=== PATIENT | female | born 1995 | race Caucasian/White ===

== ENCOUNTER 2018-01-24 10:21 | Emergency (ER) | payer OTHER ==
[2018-01-24] MEDS ORDERED: Sodium Chloride 0.9% 10 ML Syringe FLUSH PRN (10:25)
[2018-01-24] MEDS ORDERED: Sodium Chloride 0.9% 2.5 ML Syringe FLUSH PRN (10:25)
--- NOTE | 2018-01-24 10:25 | EDM.PDOC ---
ED HPI GENERAL MEDICAL PROBLEM - General Chief Complaint: Neurological Problem Stated Complaint: SEIZURE AT WORK Time Seen by Provider: 01/24/18 10:23 Source of Information: Reports: Patient History Limitations: Reports: No Limitations - History of Present Illness INITIAL COMMENTS - FREE TEXT/NARRATIVE: HISTORY AND PHYSICAL: []22-year-old female presenting per EMS after having a seizure at work History of Present Illness: []Patient opens eyes follows commands, postictal She states history of seizures SHe does not take any medications,(1 year) as this seemed to be making her seizures heavier and more frequent She states her last seizure was 8-9 months ago Review of Systems: As per history of present illness and below otherwise all systems reviewed and negative. Past medical history: As per history of present illness and as reviewed below otherwise noncontributory. Surgical history: As per history of present illness and as reviewed below otherwise noncontributory. Social history: No reported history of drug or alcohol abuse. Family history: As per history of present illness and as reviewed below otherwise noncontributory. Physical exam: Alert and oriented answering questions appropriately. HEENT: Atraumatic, normocehpalic, pupils reactive, negative for conjunctival pallor or scleral icterus, mucous membranes moist, throat clear, neck supple, nontender, trachea midline. Lungs: Clear to auscultation, breath sounds equal bilaterally, chest non tender. Heart: S1S2, regular, negative for clicks, rubs, or JVD. Abdomen: Soft, nondistended, nontender. Negative for masses or hepatossplenmegaly. Negative for costovertebral tenderness. Pelvis: Stable nontender. Genitourinary: Deferred. Rectal: Deferred Extremities: Atraumatic, negative for cords or calf pain. Neurovascular unremarkable. Neuro: Awake, alert, oriented. Cranial nerves II through XII unremarkable. Cerebellum unremarkable. Motor and sensory unremarkable throughout. Exam nonfocal. Diagnostics: []CBC CMP prolactin UA urine drug screen hCG Therapeutics: [] Impression: []Seizure activity resolved Plan: []Discharged home Rest for today Note given for work Follow-up with Dr. Mesa, [facility] - Neurology Professional Building [address] [place] [address], [address] [place] [address] Definitive disposition and diagnosis as appropriate pending reevaluation and review of above. Onset: Today, Sudden Duration: Improving Location: Reports: Generalized Quality: Reports: Same as Previous Episode Severity: Moderate Improves with: Reports: None Worsens with: Reports: None Associated Symptoms: Reports: No Other Symptoms - Related Data Allergies Allergy/AdvReac Type Severity Reaction Status Date / Time No Known Allergies Allergy Verified 01/24/18 10:29 Home Meds: Home Meds . [No Known Home Meds] 01/24/18 [History] ED ROS GENERAL - Review of Systems Review Of Systems: ROS reveals no pertinent complaints other than HPI. (The dictation) ED EXAM, NEURO - Physical Exam Exam: See Below Course - Vital Signs Last Recorded V/S: Last Vital Signs Temp 37.2 C 01/24/18 10:26 Pulse 60 01/24/18 10:26 Resp 16 01/24/18 10:26 BP 114/73 01/24/18 10:26 Pulse Ox 99 01/24/18 10:26 - Orders/Labs/Meds Orders: Active Orders 24 hr Category Date Time Status EKG Documentation Completion [RC] STAT Care 01/24/18 10:25 Active Sodium Chloride 0.9% [Saline Flush] Med 01/24/18 10:25 Active 10 ml FLUSH ASDIRECTED PRN Sodium Chloride 0.9% [Saline Flush] Med 01/24/18 10:25 Active 2.5 ml FLUSH ASDIRECTED PRN Saline Lock Insert [OM.PC] Stat Oth 01/24/18 10:25 Ordered Medication Orders Sodium Chloride (Saline Flush) 10 ml FLUSH ASDIRECTED PRN PRN Reason: Keep Vein Open Sodium Chloride (Saline Flush) 2.5 ml FLUSH ASDIRECTED PRN PRN Reason: Keep Vein Open Labs: Laboratory Tests 01/24/18 01/24/18 01/24/18 Range/Units 10:57 10:57 11:10 WBC 7.66 (4.0-11.0) K/uL RBC 4.33 (4.30-5.90) M/uL Hgb 13.1 (12.0-16.0) g/dL Hct 38.9 (36.0-46.0) % MCV 89.8 (80.0-98.0) fL MCH 30.3 (27.0-32.0) pg MCHC 33.7 (31.0-37.0) g/dL RDW Std Deviation 42.7 (28.0-62.0) fl RDW Coeff of Sudheer 13 (11.0-15.0) % Plt Count 306 (150-400) K/uL MPV 10.20 (7.40-12.00) fL Neut % (Auto) 69.0 (48.0-80.0) % Lymph % (Auto) 24.7 (16.0-40.0) % [place] % (Auto) 5.7 (0.0-15.0) % Eos % (Auto) 0.5 (0.0-7.0) % Baso % (Auto) 0.1 (0.0-1.5) % Neut # (Auto) 5.3 (1.4-5.7) K/uL Lymph # (Auto) 1.9 (0.6-2.4) K/uL [place] # (Auto) 0.4 (0.0-0.8) K/uL Eos # (Auto) 0.0 (0.0-0.7) K/uL Baso # (Auto) 0.0 (0.0-0.1) K/uL Nucleated RBC % 0.0 /100WBC Nucleated RBCs # 0 K/uL Sodium 138 (136-145) mmol/L Potassium 4.7 (3.5-5.1) mmol/L Chloride 103 (98-107) mmol/L Carbon Dioxide 27.3 (21.0-32.0) mmol/L BUN 14 (7.0-18.0) mg/dL Creatinine 0.6 (0.6-1.0) mg/dL Est Cr Clr Drug Dosing 103.85 mL/min Estimated GFR (MDRD) > 60.0 ml/min Glucose 117 H (74-106) mg/dL Calcium 9.5 (8.5-10.1) mg/dL Total Bilirubin 0.3 (0.2-1.0) mg/dL AST 18 (15-37) IU/L ALT 44 (14-63) IU/L Alkaline Phosphatase 61 (46-116) U/L Troponin I < 0.050 (0.000-0.056) ng/mL Total Protein 7.8 (6.4-8.2) g/dL Albumin 4.2 (3.4-5.0) g/dL Globulin 3.6 H (2.0-3.5) g/dL Albumin/Globulin Ratio 1.2 L (1.3-2.8) Prolactin 7 (0-27) ng/mL Urine Color YELLOW Urine Appearance CLEAR Urine pH 6.5 (5.0-8.0) Ur Specific [place] 1.020 (1.001-1.035) Urine Protein NEGATIVE (NEGATIVE) mg/dL Urine Glucose (UA) NEGATIVE (NEGATIVE) mg/dL Urine Ketones NEGATIVE (NEGATIVE) mg/dL Urine Occult Blood TRACE-LYSED (NEGATIVE) Urine Nitrite NEGATIVE (NEGATIVE) Urine Bilirubin NEGATIVE (NEGATIVE) Urine Urobilinogen 0.2 (<2.0) EU/dL Ur Leukocyte Esterase TRACE (NEGATIVE) Urine RBC 0-1 (0-2/HPF) Urine WBC 0-1 (0-5/HPF) Ur Epithelial Cells RARE (NONE-FEW) Urine Bacteria RARE (NEGATIVE) Urine HCG, Qual (NEGATIVE) Urine Opiates Screen (NEGATIVE) Ur Oxycodone Screen (NEGATIVE) Urine Methadone Screen (NEGATIVE) Ur Barbiturates Screen (NEGATIVE) Ur Phencyclidine Scrn (NEGATIVE) Ur Amphetamine Screen (NEGATIVE) U Methamphetamines Scrn (NEGATIVE) U Benzodiazepines Scrn (NEGATIVE) U Cocaine Metab Screen (NEGATIVE) U Marijuana (THC) Screen (NEGATIVE) 01/24/18 01/24/18 Range/Units 11:10 11:10 WBC (4.0-11.0) K/uL RBC (4.30-5.90) M/uL Hgb (12.0-16.0) g/dL Hct (36.0-46.0) % MCV (80.0-98.0) fL MCH (27.0-32.0) pg MCHC (31.0-37.0) g/dL RDW Std Deviation (28.0-62.0) fl RDW Coeff of Sudheer (11.0-15.0) % Plt Count (150-400) K/uL MPV (7.40-12.00) fL Neut % (Auto) (48.0-80.0) % Lymph % (Auto) (16.0-40.0) % [place] % (Auto) (0.0-15.0) % Eos % (Auto) (0.0-7.0) % Baso % (Auto) (0.0-1.5) % Neut # (Auto) (1.4-5.7) K/uL Lymph # (Auto) (0.6-2.4) K/uL [place] # (Auto) (0.0-0.8) K/uL Eos # (Auto) (0.0-0.7) K/uL Baso # (Auto) (0.0-0.1) K/uL Nucleated RBC % /100WBC Nucleated RBCs # K/uL Sodium (136-145) mmol/L Potassium (3.5-5.1) mmol/L Chloride (98-107) mmol/L Carbon Dioxide (21.0-32.0) mmol/L BUN (7.0-18.0) mg/dL Creatinine (0.6-1.0) mg/dL Est Cr Clr Drug Dosing mL/min Estimated GFR (MDRD) ml/min Glucose (74-106) mg/dL Calcium (8.5-10.1) mg/dL Total Bilirubin (0.2-1.0) mg/dL AST (15-37) IU/L ALT (14-63) IU/L Alkaline Phosphatase (46-116) U/L Troponin I (0.000-0.056) ng/mL Total Protein (6.4-8.2) g/dL Albumin (3.4-5.0) g/dL Globulin (2.0-3.5) g/dL Albumin/Globulin Ratio (1.3-2.8) Prolactin (0-27) ng/mL Urine Color Urine Appearance Urine pH (5.0-8.0) Ur Specific [place] (1.001-1.035) Urine Protein (NEGATIVE) mg/dL Urine Glucose (UA) (NEGATIVE) mg/dL Urine Ketones (NEGATIVE) mg/dL Urine Occult Blood (NEGATIVE) Urine Nitrite (NEGATIVE) Urine Bilirubin (NEGATIVE) Urine Urobilinogen (<2.0) EU/dL Ur Leukocyte Esterase (NEGATIVE) Urine RBC (0-2/HPF) Urine WBC (0-5/HPF) Ur Epithelial Cells (NONE-FEW) Urine Bacteria (NEGATIVE) Urine HCG, Qual NEGATIVE (NEGATIVE) Urine Opiates Screen NEGATIVE (NEGATIVE) Ur Oxycodone Screen NEGATIVE (NEGATIVE) Urine Methadone Screen NEGATIVE (NEGATIVE) Ur Barbiturates Screen NEGATIVE (NEGATIVE) Ur Phencyclidine Scrn NEGATIVE (NEGATIVE) Ur Amphetamine Screen NEGATIVE (NEGATIVE) U Methamphetamines Scrn NEGATIVE (NEGATIVE) U Benzodiazepines Scrn NEGATIVE (NEGATIVE) U Cocaine Metab Screen NEGATIVE (NEGATIVE) U Marijuana (THC) Screen NEGATIVE (NEGATIVE) Meds: Medications Generic Name Dose Route Start Last Admin Trade Name Freq PRN Reason Stop Dose Admin Sodium Chloride 10 ml 01/24/18 10:25 Saline Flush FLUSH ASDIRECTED PRN Keep Vein Open Sodium Chloride 2.5 ml 01/24/18 10:25 Saline Flush FLUSH ASDIRECTED PRN Keep Vein Open Departure - Departure Time of Disposition: 12:11 Disposition: Home, Self-Care 01 Condition: Good Clinical Impression: Postictal headache - Discharge Information *PRESCRIPTION DRUG MONITORING PROGRAM REVIEWED*: Not Applicable *COPY OF PRESCRIPTION DRUG MONITORING REPORT IN PATIENT REY: Not Applicable Instructions: Seizure, Adult, [id number] Referrals: PCP,None [Primary Care Provider] - Mone Mesa MD [Physician] - Forms: ED Department Discharge Additional Instructions: The following information is given to patients seen in the emergency department who are being discharged to home. This information is to outline your options for follow-up care. We provide all patients seen in our emergency department with a follow-up referral. The need for follow-up, as well as the timing and circumstances, are variable depending upon the specifics of your emergency department visit. If you don't have a primary care physician on staff, we will provide you with a referral. We always advise you to contact your personal physician following an emergency department visit to inform them of the circumstance of the visit and for follow-up with them and/or the need for any referrals to a consulting specialist. The emergency department will also refer you to a specialist when appropriate. This referral assures that you have the opportunity for followup care with a specialist. All of these measure are taken in an effort to provide you with optimal care, which includes your followup. Under all circumstances we always encourage you to contact your private physician who remains a resource for coordinating your care. When calling for followup care, please make the office aware that this follow-up is from your recent emergency room visit. If for any reason you are refused follow-up, please contact the [facility] emergency department at and asked to speak to the emergency department charge nurse. Referral has been made for you to see Dr. Mone Mesa: Neurologist [facility] - Neurology Professional [address], [address] [place] [address] Note has been given for work to stay home and rest today Return to the emergency department as directed and discussed - My Orders Last 24 Hours: My Active Orders 01/24/18 10:25 EKG Documentation Completion [RC] STAT Sodium Chloride 0.9% [Saline Flush] 10 ml FLUSH ASDIRECTED PRN Sodium Chloride 0.9% [Saline Flush] 2.5 ml FLUSH ASDIRECTED PRN Saline Lock Insert [OM.PC] Stat - Assessment/Plan Last 24 Hours: My Active Orders 01/24/18 10:25 EKG Documentation Completion [RC] STAT Sodium Chloride 0.9% [Saline Flush] 10 ml FLUSH ASDIRECTED PRN Sodium Chloride 0.9% [Saline Flush] 2.5 ml FLUSH ASDIRECTED PRN Saline Lock Insert [OM.PC] Stat
[2018-01-24 11:45] LABS: CHLORIDE,CL 103 mmol/L (98-107); SODIUM,NA 138 mmol/L (136-145)
== END 2018-01-24 12:28 | disposition home or self-care (01) ==
LOC: MW.ED 10:21
DX: R51 Headache (principal); R56.9 Unspecified convulsions
CPT/HCPCS: 36415; 80053; 80305-QW; 81001; 81025; 84146; 84484; 85025; 93005; 99283; 99285-25

== ENCOUNTER 2018-02-03 11:02 | Emergency (ER) | payer OTHER ==
--- NOTE | 2018-02-03 11:25 | EDM.PDOC ---
ED HPI GENERAL MEDICAL PROBLEM - General Chief Complaint: Neuro Symptoms/Deficits Time Seen by Provider: 02/03/18 11:10 Source of Information: Reports: Patient History Limitations: Reports: No Limitations - History of Present Illness INITIAL COMMENTS - FREE TEXT/NARRATIVE: HISTORY AND PHYSICAL: History of present illness: 22-year-old female presented emergency department by EMS after witnessed seizure while working at [employer] with past medical history of seizure disorder. As per EMS patient did have witnessed seizure and on their arrival she was postictal. She is now currently alert and oriented 3. States that today around 7 AM she was having some right ear pain and knew that she was about to have a seizure. As per EMS and observers she had a "grand mal" tonic-clonic seizure lasting 2-3 minutes. It was relieved on its own. Patient does admit to having a seizure Monday of last week. States that her last seizure before this was 8 months ago. She does have a history of seizures and states that she was on some medications which sounds like, oxcarbamazepine. She states that she felt like this caused her to have more seizures so was using marijuana and states that the marijuana helped completely resolve her seizures. She currently is taking no medications. She does admit to using marijuana otherwise she's been feeling healthy other than her right ear pain secondary to some recent nasal congestion. She denies any focal neurologic deficits at this time. She is originally from [place] and has not established a primary care provider or neurologist here in [place]. Currently denies any chest pain, palpitations, or shortness of breath. Review of systems: As per history of present illness and below otherwise all systems reviewed and negative. Past medical history: As per history of present illness and as reviewed below otherwise noncontributory. Surgical history: As per history of present illness and as reviewed below otherwise noncontributory. Social history: No reported history of drug or alcohol abuse. Family history: As per history of present illness and as reviewed below otherwise noncontributory. Physical exam: HEENT: Atraumatic, normocephalic, pupils reactive, negative for conjunctival pallor or scleral icterus, mucous membranes moist, throat clear, neck supple, nontender, trachea midline. Lungs: Clear to auscultation, breath sounds equal bilaterally, chest nontender. Heart: S1S2, regular, negative for clicks, rubs, or JVD. Abdomen: Soft, nondistended, nontender. Negative for masses or hepatosplenomegaly. Negative for costovertebral tenderness. Pelvis: Stable nontender. Genitourinary: Deferred. Rectal: Deferred. Extremities: Atraumatic, negative for cords or calf pain. Neurovascular unremarkable. Neuro: Awake, alert, oriented. Cranial nerves II through XII unremarkable. Cerebellum unremarkable. Motor and sensory unremarkable throughout. Exam nonfocal. Diagnostics: CBC, CMP, mag, UA/UC, urine drug screen, EKG, CT head Therapeutics: Keppra 1000 mg IV 1, Keppra 500 mg by mouth twice a day 30 days prescription Impression: Generalized tonic-clonic seizure Plan: CBC CMP, mag, UA, EKG, CT head were all unremarkable. Urine drug screen was positive for marijuana which she had already admitted to. I did load patient with 1000 milligrams of IV Keppra before discharge. We also set her up to see primary care provider as well as neurology. I gave her prescription for Keppra 500 mg by mouth twice a day and instructed to return to emergency department if she had any new or worsening symptoms. Definitive disposition and diagnosis as appropriate pending reevaluation and review of above. - Related Data Allergies Allergy/AdvReac Type Severity Reaction Status Date / Time No Known Allergies Allergy Verified 02/03/18 11:09 Home Meds: Home Meds . [No Known Home Meds] 01/24/18 [History] Past Medical History Neurological History: Reports: Seizure Social & Family History - Family History Family Medical History: Noncontributory ED ROS GENERAL - Review of Systems Review Of Systems: ROS reveals no pertinent complaints other than HPI. ED EXAM, GENERAL - Physical Exam Exam: See Below Course - Vital Signs Last Recorded V/S: Last Vital Signs Temp 97.7 F 02/03/18 11:06 Pulse 81 02/03/18 11:06 Resp 16 02/03/18 11:06 BP 110/51 L 02/03/18 11:06 Pulse Ox 99 02/03/18 11:22 - Orders/Labs/Meds Orders: Active Orders 24 hr Category Date Time Status EKG 12 Lead [EKG Documentation Completion] [RC] STAT Care 02/03/18 11:26 Active Head wo Cont [CT] Stat Exams 02/03/18 11:27 Taken CULTURE URINE [RM] Stat Lab 02/03/18 12:42 Received levETIRAcetam [Keppra] 1,000 mg Med 02/03/18 13:21 Ordered Dextrose 5% in Water 100 ml IV NOW Medication Orders Levetiracetam 1,000 mg/ (Dextrose/Water) 110 mls @ 440 mls/hr IV NOW STA Stop: 02/03/18 13:35 Labs: Laboratory Tests 02/03/18 02/03/18 02/03/18 Range/Units 11:37 11:37 11:37 WBC 8.01 (4.0-11.0) K/uL RBC 4.32 (4.30-5.90) M/uL Hgb 13.3 (12.0-16.0) g/dL Hct 39.2 (36.0-46.0) % MCV 90.7 (80.0-98.0) fL MCH 30.8 (27.0-32.0) pg MCHC 33.9 (31.0-37.0) g/dL RDW Std Deviation 42.8 (28.0-62.0) fl RDW Coeff of Sudheer 13 (11.0-15.0) % Plt Count 336 (150-400) K/uL MPV 9.90 (7.40-12.00) fL Neut % (Auto) 66.4 (48.0-80.0) % Lymph % (Auto) 25.6 (16.0-40.0) % [place] % (Auto) 7.0 (0.0-15.0) % Eos % (Auto) 0.9 (0.0-7.0) % Baso % (Auto) 0.1 (0.0-1.5) % Neut # (Auto) 5.3 (1.4-5.7) K/uL Lymph # (Auto) 2.1 (0.6-2.4) K/uL [place] # (Auto) 0.6 (0.0-0.8) K/uL Eos # (Auto) 0.1 (0.0-0.7) K/uL Baso # (Auto) 0.0 (0.0-0.1) K/uL Nucleated RBC % 0.0 /100WBC Nucleated RBCs # 0 K/uL Sodium 139 (136-145) mmol/L Potassium 4.0 (3.5-5.1) mmol/L Chloride 103 (98-107) mmol/L Carbon Dioxide 30.1 (21.0-32.0) mmol/L BUN 12 (7.0-18.0) mg/dL Creatinine 0.6 (0.6-1.0) mg/dL Est Cr Clr Drug Dosing 124.85 mL/min Estimated GFR (MDRD) > 60.0 ml/min Glucose 120 H (74-106) mg/dL Calcium 9.1 (8.5-10.1) mg/dL Magnesium 1.8 (1.8-2.4) mg/dL Total Bilirubin 0.3 (0.2-1.0) mg/dL AST 19 (15-37) IU/L ALT 45 (14-63) IU/L Alkaline Phosphatase 67 (46-116) U/L Total Protein 7.7 (6.4-8.2) g/dL Albumin 4.1 (3.4-5.0) g/dL Globulin 3.6 H (2.0-3.5) g/dL Albumin/Globulin Ratio 1.1 L (1.3-2.8) Prolactin 12 (0-27) ng/mL HCG, Qual NEGATIVE (NEG) Urine Color Urine Appearance Urine pH (5.0-8.0) Ur Specific [place] (1.001-1.035) Urine Protein (NEGATIVE) mg/dL Urine Glucose (UA) (NEGATIVE) mg/dL Urine Ketones (NEGATIVE) mg/dL Urine Occult Blood (NEGATIVE) Urine Nitrite (NEGATIVE) Urine Bilirubin (NEGATIVE) Urine Urobilinogen (<2.0) EU/dL Ur Leukocyte Esterase (NEGATIVE) Urine RBC (0-2/HPF) Urine WBC (0-5/HPF) Ur Epithelial Cells (NONE-FEW) Urine Bacteria (NEGATIVE) Urine Opiates Screen (NEGATIVE) Ur Oxycodone Screen (NEGATIVE) Urine Methadone Screen (NEGATIVE) Ur Barbiturates Screen (NEGATIVE) Ur Phencyclidine Scrn (NEGATIVE) Ur Amphetamine Screen (NEGATIVE) U Methamphetamines Scrn (NEGATIVE) U Benzodiazepines Scrn (NEGATIVE) U Cocaine Metab Screen (NEGATIVE) U Marijuana (THC) Screen (NEGATIVE) 02/03/18 02/03/18 Range/Units 12:42 12:42 WBC (4.0-11.0) K/uL RBC (4.30-5.90) M/uL Hgb (12.0-16.0) g/dL Hct (36.0-46.0) % MCV (80.0-98.0) fL MCH (27.0-32.0) pg MCHC (31.0-37.0) g/dL RDW Std Deviation (28.0-62.0) fl RDW Coeff of Sudheer (11.0-15.0) % Plt Count (150-400) K/uL MPV (7.40-12.00) fL Neut % (Auto) (48.0-80.0) % Lymph % (Auto) (16.0-40.0) % [place] % (Auto) (0.0-15.0) % Eos % (Auto) (0.0-7.0) % Baso % (Auto) (0.0-1.5) % Neut # (Auto) (1.4-5.7) K/uL Lymph # (Auto) (0.6-2.4) K/uL [place] # (Auto) (0.0-0.8) K/uL Eos # (Auto) (0.0-0.7) K/uL Baso # (Auto) (0.0-0.1) K/uL Nucleated RBC % /100WBC Nucleated RBCs # K/uL Sodium (136-145) mmol/L Potassium (3.5-5.1) mmol/L Chloride (98-107) mmol/L Carbon Dioxide (21.0-32.0) mmol/L BUN (7.0-18.0) mg/dL Creatinine (0.6-1.0) mg/dL Est Cr Clr Drug Dosing mL/min Estimated GFR (MDRD) ml/min Glucose (74-106) mg/dL Calcium (8.5-10.1) mg/dL Magnesium (1.8-2.4) mg/dL Total Bilirubin (0.2-1.0) mg/dL AST (15-37) IU/L ALT (14-63) IU/L Alkaline Phosphatase (46-116) U/L Total Protein (6.4-8.2) g/dL Albumin (3.4-5.0) g/dL Globulin (2.0-3.5) g/dL Albumin/Globulin Ratio (1.3-2.8) Prolactin (0-27) ng/mL HCG, Qual (NEG) Urine Color YELLOW Urine Appearance CLEAR Urine pH 6.0 (5.0-8.0) Ur Specific [place] >= 1.030 (1.001-1.035) Urine Protein NEGATIVE (NEGATIVE) mg/dL Urine Glucose (UA) NEGATIVE (NEGATIVE) mg/dL Urine Ketones NEGATIVE (NEGATIVE) mg/dL Urine Occult Blood TRACE-INTACT (NEGATIVE) Urine Nitrite NEGATIVE (NEGATIVE) Urine Bilirubin NEGATIVE (NEGATIVE) Urine Urobilinogen 0.2 (<2.0) EU/dL Ur Leukocyte Esterase NEGATIVE (NEGATIVE) Urine RBC 2-3 (0-2/HPF) Urine WBC 0-1 (0-5/HPF) Ur Epithelial Cells FEW (NONE-FEW) Urine Bacteria FEW (NEGATIVE) Urine Opiates Screen NEGATIVE (NEGATIVE) Ur Oxycodone Screen NEGATIVE (NEGATIVE) Urine Methadone Screen NEGATIVE (NEGATIVE) Ur Barbiturates Screen NEGATIVE (NEGATIVE) Ur Phencyclidine Scrn NEGATIVE (NEGATIVE) Ur Amphetamine Screen NEGATIVE (NEGATIVE) U Methamphetamines Scrn NEGATIVE (NEGATIVE) U Benzodiazepines Scrn NEGATIVE (NEGATIVE) U Cocaine Metab Screen NEGATIVE (NEGATIVE) U Marijuana (THC) Screen POSITIVE (NEGATIVE) Meds: Medications Generic Name Dose Route Start Last Admin Trade Name Freq PRN Reason Stop Dose Admin Levetiracetam 1,000 mg/ 110 mls @ 440 mls/hr 02/03/18 13:21 Dextrose/Water IV 02/03/18 13:35 NOW STA Departure - Departure Time of Disposition: 13:25 Disposition: Home, Self-Care 01 Condition: Good Clinical Impression: Tonic-clonic seizure disorder, Seizure - Discharge Information Referrals: PCP,None [Primary Care Provider] - Forms: ED Department Discharge Additional Instructions: My general discharge The following information is given to patients seen in the emergency department who are being discharged to home. This information is to outline your options for follow-up care. We provide all patients seen in our emergency department with a follow-up referral. The need for follow-up, as well as the timing and circumstances, are variable depending upon the specifics of your emergency department visit. If you don't have a primary care physician on staff, we will provide you with a referral. We always advise you to contact your personal physician following an emergency department visit to inform them of the circumstance of the visit and for follow-up with them and/or the need for any referrals to a consulting specialist. The emergency department will also refer you to a specialist when appropriate. This referral assures that you have the opportunity for follow-up care with a specialist. All of these measure are taken in an effort to provide you with optimal care, which includes your follow-up. Under all circumstances we always encourage you to contact your private physician who remains a resource for coordinating your care. When calling for follow-up care, please make the office aware that this follow-up is from your recent emergency room visit. If for any reason you are refused follow-up, please contact the [facility] Emergency Department at and asked to speak to the emergency department charge nurse. [facility] [address] [place] [id number] [facility] Specialty Care - Neurology Professional Building [address] [place] [address], [address] [place] [address] Please call above numbers to set up appointment with primary care provider as well as neurology on Monday. Be sure to tell them that you were seen in the emergency department for seizures and they wish for you to be seen as soon as possible. Take medication as prescribed. Return emergency department if any new or worsening symptoms. - My Orders Last 24 Hours: My Active Orders 02/03/18 11:26 EKG 12 Lead [EKG Documentation Completion] [RC] STAT 02/03/18 11:27 Head wo Cont [CT] Stat 02/03/18 12:42 CULTURE URINE [RM] Stat 02/03/18 13:21 levETIRAcetam [Keppra] 1,000 mg Dextrose 5% in Water 100 ml IV NOW - Assessment/Plan Last 24 Hours: My Active Orders 02/03/18 11:26 EKG 12 Lead [EKG Documentation Completion] [RC] STAT 02/03/18 11:27 Head wo Cont [CT] Stat 02/03/18 12:42 CULTURE URINE [RM] Stat 02/03/18 13:21 levETIRAcetam [Keppra] 1,000 mg Dextrose 5% in Water 100 ml IV NOW
[2018-02-03 12:05] LABS: CHLORIDE,CL 103 mmol/L (98-107); SODIUM,NA 139 mmol/L (136-145)
--- NOTE | 2018-02-05 14:13 | CT ---
EXAM DATE: 02/03/18 PATIENT'S AGE: 22 Patient: JHON ANDINO Facility: [place], [place] Site . Site : 1995 Study: CT Head [id number] 12:19:32 PM Ordering Physician: Doctor Najera Final Report: I clinical Indication: Seizure. Pain. TECHNIQUE: Axial noncontrast CT cuts performed from the skull base to the vertex. FINDINGS: There is no intracranial mass, hemorrhage infarction or contusion. There is no midline shift or transtentorial herniation. The calvarium is intact. The visualized paranasal sinuses and orbits appear normal. IMPRESSION: Negative study. Please note that all CT scans at this facility use dose modulation, iterative reconstruction, and/or weight-based dosing when appropriate to reduce radiation dose to as low as reasonably achievable. Dictated by Harish Nye MD @ Feb 03 2018 1:09PM (Electronic Signature) Report Signed by Proxy. MIRIAM
== END 2018-02-03 14:06 | disposition home or self-care (01) ==
LOC: MW.ED 11:02
DX: G40.409 Other generalized epilepsy and epileptic syndromes, not intractable, without status epilepticus (principal)
CPT/HCPCS: 36415; 70450; 80053; 80305; 81001; 83735; 84146; 84703; 85025; 87086; 93005; 96365; 99284; J1953; J7060

== ENCOUNTER 2018-05-30 11:52 | Emergency (ER) | payer SELFPAY ==
[2018-05-30] MEDS ORDERED: Sodium Chloride 0.9% 1,000 ML IV ONE (12:05)
[2018-05-30] MEDS ORDERED: Ketorolac 30 MG/ML SDV IVPUSH ONE (12:05)
[2018-05-30] MEDS ORDERED: Ondansetron 4 MG/2 ML SDV IVPUSH ONE (12:06)
--- NOTE | 2018-05-30 12:16 | EDM.PDOC ---
ED HPI GENERAL MEDICAL PROBLEM - General Chief Complaint: Neuro Symptoms/Deficits Stated Complaint: SEIZURE Time Seen by Provider: 05/30/18 11:55 Source of Information: Reports: Patient, EMS History Limitations: Reports: No Limitations - History of Present Illness INITIAL COMMENTS - FREE TEXT/NARRATIVE: HISTORY AND PHYSICAL: History of present illness: Patient is a 22-year-old female who presents to the emergency room via EMS after a seizure. She states she woke up this morning with some right upper quadrant pain around 0600. She states she had one episode of vomiting due to the right upper quadrant pain. Describes this as a "pressure". This afternoon she states she could feel a seizure "coming on", so she had a called a friend to come pick her up to bring her to the ED. She sat and waited in her vehicle for the friend to arrive. While waiting, she had a seizure for approximately 5 minutes (per patient report). The vehicle was not running (or in motion). The friend arrived and called the EMS for transport. Patient did not fall, hit her head or have any urinary/fecal incontinence. Patient has a known seizure disorder and usually smokes marijuana daily for treatment of her seizures. Reports that oral medications caused her to have more seizures, so was informed to start smoking marijuana for seizure management. Prior to her marijuana use, she would have 3 seizures per week. Now she only has "maybe one seizure every 3 months". She states she moved here from [place] about 8 months ago, and has not set up care with a primary care provider or neurologist. Last time she saw a neurologist or primary care provider was approximately 3 years ago. Patient states she is concerned that she had been diagnosed with "stage II cervical cancer" and previously had "it frozen off", but didn't have any follow up and is fearful that this abdominal pain may be related. Denies any fever, chills, chest pain, shortness of breath or cough. Denies any nausea, diarrhea, constipation or dysuria. Denies any chance of . Denies any vaginal bleeding or discharge. Review of systems: As per history of present illness and below otherwise all systems reviewed and negative. Past medical history: As per history of present illness and as reviewed below otherwise noncontributory. Surgical history: As per history of present illness and as reviewed below otherwise noncontributory. Social history: See social history for further information Family history: As per history of present illness and as reviewed below otherwise noncontributory. Physical exam: General: Well-developed and well-nourished 22-year-old female. Alert and oriented. Nontoxic appearing and in no acute distress. HEENT: Atraumatic, normocephalic, pupils equal and reactive bilaterally, negative for conjunctival pallor or scleral icterus, mucous membranes moist, throat clear, neck supple, nontender, trachea midline. No drooling or trismus noted. No meningeal signs Lungs: Clear to auscultation, breath sounds equal bilaterally, chest nontender. Heart: S1S2, regular rate and rhythm without overt murmur Abdomen: Soft, nondistended, nontender. Negative for masses or hepatosplenomegaly. Negative for costovertebral tenderness. Pelvis: Stable nontender. Genitourinary: Deferred. Rectal: Deferred. Skin: Intact, warm, dry. No lesions or rashes noted. Extremities: Atraumatic, negative for cords or calf pain. Neurovascular unremarkable. Neuro: Awake, alert, oriented. Cranial nerves II through XII unremarkable. Cerebellum unremarkable. Motor and sensory unremarkable throughout. Exam nonfocal. Notes: Lab work is unremarkable. No acute findings on the chest x-ray or CT of abdomen and pelvis. Patient's vital signs are stable and within normal limits. I strongly encouraged the patient to establish care with a primary care provider ( overall health maintenance), OBGYN (history of cervical cancer) and neurologist (known seizure disorder). She states she recently got insurance and will make appropriate follow up appointments. Supportive care measures were reviewed and discussed. She voices understanding and is agreeable to plan of care. Denies any further questions or concerns at this time. Diagnostics: CBC, CMP, UA, HCGU, CXR, Amylase, Lipase, abd/pelv CT Therapeutics: IV fluids, Zofran, Toradol Prescription: None Impression: Known Seizure Disorder Abdominal Pain Plan: 1. Please establish care with a Neurologist and OBGYN for your pre-existing health problems. Contact information has been provided to you on your discharge instruction sheet. 2. Tylenol and/or Ibuprofen for pain management. 3. See a primary care provider in the next 1-2 days. Return to the ED as needed and as discussed. Definitive disposition and diagnosis as appropriate pending reevaluation and review of above. Onset: Today Location: Reports: Abdomen RUQ Pain Score (Numeric/FACES): 10 - Related Data Allergies Allergy/AdvReac Type Severity Reaction Status Date / Time No Known Allergies Allergy Verified 05/30/18 11:57 Home Meds: Home Meds . [No Known Home Meds] 01/24/18 [History] Past Medical History Neurological History: Reports: Seizure Other Neuro History: states hasn't had a seizure in 3 months, not taking any oral medications for seizures, states she smokes marijuana to contol seizures Oncologic (Cancer) History: Reports: Cervix Other Oncologic History: stage 2 cervical ca Social & Family History - Family History Family Medical History: Noncontributory Endocrine/Metabolic: Reports: Diabetes, Type I Oncologic: Reports: Other (See Below) Other Oncologic Family History: Cancer - Tobacco Use Smoking Status *Q: Current Some Day Smoker Years of Tobacco use: 6 Packs/Tins Daily: 0 - Caffeine Use Caffeine Use: Reports: None - Recreational Drug Use Recreational Drug Use: Yes Drug Use in Last 12 Months: Yes Recreational Drug Type: Reports: Marijuana/Hashish Recreational Drug Use Frequency: Monthly ED ROS GENERAL - Review of Systems Review Of Systems: ROS reveals no pertinent complaints other than HPI. ED EXAM, NEURO - Physical Exam Exam: See Below (See dictation) Course - Vital Signs Last Recorded V/S: Last Vital Signs Temp 98.0 F 05/30/18 11:54 Pulse 78 05/30/18 11:54 Resp 18 05/30/18 11:54 BP 113/76 05/30/18 11:54 Pulse Ox 97 05/30/18 11:54 - Orders/Labs/Meds Orders: Active Orders 24 hr Category Date Time Status CULTURE URINE [RM] Stat Lab 05/30/18 12:59 Received Labs: Laboratory Tests 05/30/18 05/30/18 05/30/18 Range/Units 12:17 12:17 12:59 WBC 8.71 (4.0-11.0) K/uL RBC 4.53 (4.30-5.90) M/uL Hgb 13.9 (12.0-16.0) g/dL Hct 41.4 (36.0-46.0) % MCV 91.4 (80.0-98.0) fL MCH 30.7 (27.0-32.0) pg MCHC 33.6 (31.0-37.0) g/dL RDW Std Deviation 44.1 (28.0-62.0) fl RDW Coeff of Sudheer 13 (11.0-15.0) % Plt Count 293 (150-400) K/uL MPV 10.30 (7.40-12.00) fL Neut % (Auto) 68.2 (48.0-80.0) % Lymph % (Auto) 24.1 (16.0-40.0) % Maries % (Auto) 7.3 (0.0-15.0) % Eos % (Auto) 0.3 (0.0-7.0) % Baso % (Auto) 0.1 (0.0-1.5) % Neut # (Auto) 5.9 H (1.4-5.7) K/uL Lymph # (Auto) 2.1 (0.6-2.4) K/uL Maries # (Auto) 0.6 (0.0-0.8) K/uL Eos # (Auto) 0.0 (0.0-0.7) K/uL Baso # (Auto) 0.0 (0.0-0.1) K/uL Nucleated RBC % 0.0 /100WBC Nucleated RBCs # 0 K/uL Sodium 140 (136-145) mmol/L Potassium 4.6 (3.5-5.1) mmol/L Chloride 104 (98-107) mmol/L Carbon Dioxide 28.5 (21.0-32.0) mmol/L BUN 11 (7.0-18.0) mg/dL Creatinine 0.6 (0.6-1.0) mg/dL Est Cr Clr Drug Dosing 103.85 mL/min Estimated GFR (MDRD) > 60.0 ml/min Glucose 94 (74-106) mg/dL Calcium 9.3 (8.5-10.1) mg/dL Total Bilirubin 0.4 (0.2-1.0) mg/dL AST 11 L (15-37) IU/L ALT 22 (14-63) IU/L Alkaline Phosphatase 57 (46-116) U/L Total Protein 7.7 (6.4-8.2) g/dL Albumin 3.9 (3.4-5.0) g/dL Globulin 3.8 (2.6-4.0) g/dL Albumin/Globulin Ratio 1.0 (0.9-1.6) Amylase 58 (25-115) U/L Lipase 87 (73-393) U/L Urine Color YELLOW Urine Appearance CLEAR Urine pH 7.0 (5.0-8.0) Ur Specific [place] 1.010 (1.001-1.035) Urine Protein NEGATIVE (NEGATIVE) mg/dL Urine Glucose (UA) NEGATIVE (NEGATIVE) mg/dL Urine Ketones NEGATIVE (NEGATIVE) mg/dL Urine Occult Blood TRACE-LYSED H (NEGATIVE) Urine Nitrite NEGATIVE (NEGATIVE) Urine Bilirubin NEGATIVE (NEGATIVE) Urine Urobilinogen 0.2 (<2.0) EU/dL Ur Leukocyte Esterase TRACE H (NEGATIVE) Urine RBC 0-1 (0-2/HPF) Urine WBC 1-3 (0-5/HPF) Ur Epithelial Cells MODERATE (NONE-FEW) Urine Bacteria FEW (NEGATIVE) Urine Mucus LIGHT (NONE-MOD) Urine HCG, Qual (NEGATIVE) 05/30/18 Range/Units 12:59 WBC (4.0-11.0) K/uL RBC (4.30-5.90) M/uL Hgb (12.0-16.0) g/dL Hct (36.0-46.0) % MCV (80.0-98.0) fL MCH (27.0-32.0) pg MCHC (31.0-37.0) g/dL RDW Std Deviation (28.0-62.0) fl RDW Coeff of Sudheer (11.0-15.0) % Plt Count (150-400) K/uL MPV (7.40-12.00) fL Neut % (Auto) (48.0-80.0) % Lymph % (Auto) (16.0-40.0) % Maries % (Auto) (0.0-15.0) % Eos % (Auto) (0.0-7.0) % Baso % (Auto) (0.0-1.5) % Neut # (Auto) (1.4-5.7) K/uL Lymph # (Auto) (0.6-2.4) K/uL Maries # (Auto) (0.0-0.8) K/uL Eos # (Auto) (0.0-0.7) K/uL Baso # (Auto) (0.0-0.1) K/uL Nucleated RBC % /100WBC Nucleated RBCs # K/uL Sodium (136-145) mmol/L Potassium (3.5-5.1) mmol/L Chloride (98-107) mmol/L Carbon Dioxide (21.0-32.0) mmol/L BUN (7.0-18.0) mg/dL Creatinine (0.6-1.0) mg/dL Est Cr Clr Drug Dosing mL/min Estimated GFR (MDRD) ml/min Glucose (74-106) mg/dL Calcium (8.5-10.1) mg/dL Total Bilirubin (0.2-1.0) mg/dL AST (15-37) IU/L ALT (14-63) IU/L Alkaline Phosphatase (46-116) U/L Total Protein (6.4-8.2) g/dL Albumin (3.4-5.0) g/dL Globulin (2.6-4.0) g/dL Albumin/Globulin Ratio (0.9-1.6) Amylase (25-115) U/L Lipase (73-393) U/L Urine Color Urine Appearance Urine pH (5.0-8.0) Ur Specific Mill[place] (1.001-1.035) Urine Protein (NEGATIVE) mg/dL Urine Glucose (UA) (NEGATIVE) mg/dL Urine Ketones (NEGATIVE) mg/dL Urine Occult Blood (NEGATIVE) Urine Nitrite (NEGATIVE) Urine Bilirubin (NEGATIVE) Urine Urobilinogen (<2.0) EU/dL Ur Leukocyte Esterase (NEGATIVE) Urine RBC (0-2/HPF) Urine WBC (0-5/HPF) Ur Epithelial Cells (NONE-FEW) Urine Bacteria (NEGATIVE) Urine Mucus (NONE-MOD) Urine HCG, Qual NEGATIVE (NEGATIVE) Meds: Medications Discontinued Medications Generic Name Dose Route Start Last Admin Trade Name Freq PRN Reason Stop Dose Admin Sodium Chloride 1,000 mls @ 999 mls/hr 05/30/18 12:05 05/30/18 12:32 Normal Saline IV 05/30/18 13:05 999 mls/hr STAT ONE Administration Iopamidol 67 ml 05/30/18 13:42 05/30/18 13:44 Isovue Multipack-370 (76%) IVPUSH 05/30/18 13:43 67 ml ONETIME STA Administration Ketorolac Tromethamine 30 mg 05/30/18 12:05 05/30/18 12:32 Toradol IVPUSH 05/30/18 12:06 30 mg ONETIME ONE Administration Ondansetron HCl 4 mg 05/30/18 12:06 05/30/18 12:32 Zofran IVPUSH 05/30/18 12:07 4 mg ONETIME ONE Administration Departure - Departure Time of Disposition: 14:35 Disposition: Home, Self-Care 01 Clinical Impression: Seizure Abdominal pain Qualifiers: Abdominal location: right upper quadrant Qualified Code(s): R10.11 - Right upper quadrant pain - Discharge Information Instructions: Seizure, Adult, [id number], Abdominal Pain, Adult, [id number] Referrals: PCP,None [Primary Care Provider] - Forms: ED Department Discharge Additional Instructions: The following information is given to patients seen in the emergency department who are being discharged to home. This information is to outline your options for follow-up care. We provide all patients seen in our emergency department with a follow-up referral. The need for follow-up, as well as the timing and circumstances, are variable depending upon the specifics of your emergency department visit. If you don't have a primary care physician on staff, we will provide you with a referral. We always advise you to contact your personal physician following an emergency department visit to inform them of the circumstance of the visit and for follow-up with them and/or the need for any referrals to a consulting specialist. The emergency department will also refer you to a specialist when appropriate. This referral assures that you have the opportunity for follow-up care with a specialist. All of these measure are taken in an effort to provide you with optimal care, which includes your follow-up. Under all circumstances we always encourage you to contact your private physician who remains a resource for coordinating your care. When calling for follow-up care, please make the office aware that this follow-up is from your recent emergency room visit. If for any reason you are refused follow-up, please contact the [facility] Emergency Department at and asked to speak to the emergency department charge nurse. [facility] Primary Care: Women's Health [address] [place] [address] [facility] [address] [place] [address] [facility] Specialty Care - Neurology Professional Building [address] [facility], [address] [place] [address] [facility] [address] [place] [address] 1. Please establish care with a Neurologist and OBGYN for your pre-existing health problems. Contact information has been provided to you on your discharge instruction sheet. 2. Tylenol and/or Ibuprofen for pain management. 3. See a primary care provider in the next 1-2 days. Return to the ED as needed and as discussed. - My Orders Last 24 Hours: My Active Orders 05/30/18 12:59 CULTURE URINE [RM] Stat - Assessment/Plan Last 24 Hours: My Active Orders 05/30/18 12:59 CULTURE URINE [RM] Stat
[2018-05-30] MEDS ORDERED: Ketorolac 30 MG/ML SDV ONE (12:22)
[2018-05-30] MEDS ORDERED: Ondansetron 4 MG/2 ML SDV ONE (12:23)
[2018-05-30 12:47] LABS: CHLORIDE,CL 104 mmol/L (98-107); SODIUM,NA 140 mmol/L (136-145)
--- NOTE | 2018-05-30 13:05 | CR ---
EXAMINATION: Portable chest radiograph. HISTORY: Chest pain. FINDINGS: The trachea is midline. The cardiomediastinal silhouette is within normal limits. No pulmonary infiltrates, effusions or pneumothorax. Osseous structures appear unremarkable. IMPRESSION: No acute cardiopulmonary process.
[2018-05-30] MEDS ORDERED: Iopamidol 755 MG/ML 500 ML Multipack Bottle IVPUSH STA (13:42)
--- NOTE | 2018-05-30 14:34 | CT ---
CT of the abdomen and pelvis with contrast. HISTORY: Pain TECHNIQUE: Axial CT images were obtained of the abdomen and pelvis following administration of 67 mL of Isovue-370 in the right antecubital fossa without complication. Coronal and sagittal reconstructions obtained. FINDINGS: The lung bases are clear, no pleural effusion. The liver, spleen, adrenal glands, and pancreas appear normal. The gallbladder is normal. No bulky retroperitoneal lymphadenopathy or abdominal ascites. The kidneys enhance and function symmetrically without evidence of obstructive uropathy. The large and small bowel are normal in caliber. No focal pericolonic inflammation or stranding. Minimal free pelvic fluid, likely physiologic. Next not well characterized. Likely tiny involuting follicle within the right ovary. No suspicious osseous abnormalities identified. IMPRESSION: 1. No acute findings noted within the abdomen or pelvis.
== END 2018-05-30 14:54 | disposition home or self-care (01) ==
LOC: MW.ED 11:52
DX: G40.909 Epilepsy, unspecified, not intractable, without status epilepticus (principal); R10.11 Right upper quadrant pain; F17.200 Nicotine dependence, unspecified, uncomplicated
CPT/HCPCS: 36415; 71045; 74177; 80053; 81001; 81025; 82150; 83690; 85025; 87086; 96361; 96374; 96375; 99285; J1885; J2405; J7040; Q9967

== ENCOUNTER 2018-07-09 08:38 | Emergency (ER) | payer MEDICAID, OTHER ==
--- NOTE | 2018-07-09 09:03 | EDM.PDOC ---
ED HPI GENERAL MEDICAL PROBLEM - General Chief Complaint: Lower Extremity Injury/Pain Stated Complaint: INJURED KNEES Time Seen by Provider: 07/09/18 08:47 - History of Present Illness INITIAL COMMENTS - FREE TEXT/NARRATIVE: HISTORY AND PHYSICAL: History of present illness: Patient is a 22-year-old female who presents with concern of bilateral knee pain and bruising she does have a history of seizure disorder and did have on Monday she states that this bruising and discomfort predated that she does not recall any specific trauma but no fever chills nausea vomiting or other complaints. Review of systems: As per history of present illness and below otherwise all systems reviewed and negative. Past medical history: As per history of present illness and as reviewed below otherwise noncontributory. Surgical history: As per history of present illness and as reviewed below otherwise noncontributory. Social history: No reported history of drug or alcohol abuse. Family history: As per history of present illness and as reviewed below otherwise noncontributory. Physical exam: HEENT: Atraumatic, normocephalic, pupils reactive, negative for conjunctival pallor or scleral icterus, mucous membranes moist, throat clear, neck supple, nontender, trachea midline. Lungs: Clear to auscultation, breath sounds equal bilaterally, chest nontender. Heart: S1S2, regular, negative for clicks, rubs, or JVD. Abdomen: Soft, nondistended, nontender. Negative for masses or hepatosplenomegaly. Negative for costovertebral tenderness. Pelvis: Stable nontender. Genitourinary: Deferred. Rectal: Deferred. Extremities: Patient has ecchymosis over her knees bilaterally with tenderness to palpation and no crepitation joint is grossly stable is no effusion CMS and neurovascular exam is unremarkable Neuro: Awake, alert, oriented. Cranial nerves II through XII unremarkable. Cerebellum unremarkable. Motor and sensory unremarkable throughout. Exam nonfocal. Diagnostics: X-ray right and left knee Therapeutics: None Impression: #1 bilateral knee pain #2 bilateral knee contusions Definitive disposition and diagnosis as appropriate pending reevaluation and review of above. bilateral knees Pain Score (Numeric/FACES): 10 - Related Data Allergies Allergy/AdvReac Type Severity Reaction Status Date / Time No Known Allergies Allergy Verified 07/09/18 08:52 Home Meds: Home Meds levETIRAcetam [Keppra] 500 mg PO BID 07/09/18 [History] Past Medical History HEENT History: Reports: None Cardiovascular History: Reports: None Respiratory History: Reports: None Gastrointestinal History: Reports: None Genitourinary History: Reports: None C++ PROFESSOR History: Reports: None Musculoskeletal History: Reports: None Neurological History: Reports: Seizure Other Neuro History: states hasn't had a seizure in 3 months, not taking any oral medications for seizures, states she smokes marijuana to contol seizures Psychiatric History: Reports: None Endocrine/Metabolic History: Reports: None Hematologic History: Reports: None Immunologic History: Reports: None Oncologic (Cancer) History: Reports: Cervix Other Oncologic History: stage 2 cervical ca Dermatologic History: Reports: None - Past Surgical History Head Surgeries/Procedures: Reports: None HEENT Surgical History: Reports: None Cardiovascular Surgical History: Reports: None Respiratory Surgical History: Reports: None GI Surgical History: Reports: None Female Surgical History: Reports: None Endocrine Surgical History: Reports: None Neurological Surgical History: Reports: None Musculoskeletal Surgical History: Reports: None Dermatological Surgical History: Reports: None Social & Family History - Family History Family Medical History: Noncontributory Endocrine/Metabolic: Reports: Diabetes, Type I Oncologic: Reports: Other (See Below) Other Oncologic Family History: Cancer - Tobacco Use Smoking Status *Q: Never Smoker Second Hand Smoke Exposure: No - Caffeine Use Caffeine Use: Reports: None - Recreational Drug Use Recreational Drug Use: No Review of Systems - Review of Systems Review Of Systems: ROS reveals no pertinent complaints other than HPI. ED EXAM, GENERAL - Physical Exam Exam: See Below (See dictation) Course - Vital Signs Last Recorded V/S: Last Vital Signs Temp 36.0 C 07/09/18 08:52 Pulse 70 07/09/18 08:52 Resp 18 07/09/18 08:52 BP 92/59 L 07/09/18 08:52 Pulse Ox 100 07/09/18 08:52 Departure - Departure Time of Disposition: 10:57 Disposition: Home, Self-Care 01 Condition: Good Clinical Impression: Multiple contusions, Knee pain, bilateral - Discharge Information Referrals: Mone Mesa MD [Primary Care Provider] - Forms: ED Department Discharge Additional Instructions: The following information is given to patients seen in the emergency department who are being discharged to home. This information is to outline your options for follow-up care. We provide all patients seen in our emergency department with a follow-up referral. The need for follow-up, as well as the timing and circumstances, are variable depending upon the specifics of your emergency department visit. If you don't have a primary care physician on staff, we will provide you with a referral. We always advise you to contact your personal physician following an emergency department visit to inform them of the circumstance of the visit and for follow-up with them and/or the need for any referrals to a consulting specialist. The emergency department will also refer you to a specialist when appropriate. This referral assures that you have the opportunity for followup care with a specialist. All of these measure are taken in an effort to provide you with optimal care, which includes your followup. Under all circumstances we always encourage you to contact your private physician who remains a resource for coordinating your care. When calling for followup care, please make the office aware that this follow-up is from your recent emergency room visit. If for any reason you are refused follow-up, please contact the [facility] emergency department at and asked to speak to the emergency department charge nurse. Jose as directed follow primary medical doctor as needed as discussed and return as needed as discussed
--- NOTE | 2018-07-09 10:36 | CR ---
EXAMINATION: Left and right knees HISTORY: Pain COMPARISON: None TECHNIQUE: 3 views of the left knee and 3 views of the right knee FINDINGS: There is no acute osseous abnormality, dislocation, or fracture. Bone mineralization and joint spaces are preserved. No soft tissue swelling or joint effusion. Likely a tiny fibrous cortical defect involving the proximal left fibula. IMPRESSION: 1. No acute osseous abnormalities noted bilaterally.
== END 2018-07-09 11:10 | disposition home or self-care (01) ==
LOC: MW.ED 08:38
DX: S80.02XA Contusion of left knee, initial encounter (principal); S80.01XA Contusion of right knee, initial encounter; G40.909 Epilepsy, unspecified, not intractable, without status epilepticus; X58.XXXA Exposure to other specified factors, initial encounter
CPT/HCPCS: 73562-26-LT; 73562-26-RT; 73562-LT; 73562-RT; 99283

== ENCOUNTER 2018-07-25 19:18 | Emergency (ER) | payer OTHER ==
[2018-07-25] MEDS ORDERED: Sodium Chloride 0.9% 10 ML Syringe FLUSH PRN (19:27)
[2018-07-25] MEDS ORDERED: Sodium Chloride 0.9% 2.5 ML Syringe FLUSH PRN (19:27)
--- NOTE | 2018-07-25 19:29 | EDM.PDOC ---
ED HPI GENERAL MEDICAL PROBLEM - General Chief Complaint: Abdominal Pain Stated Complaint: SEIZURE Time Seen by Provider: 07/25/18 19:20 - History of Present Illness INITIAL COMMENTS - FREE TEXT/NARRATIVE: HISTORY AND PHYSICAL: History of present illness: The patient is a 22-year-old female with a known history of seizures who just recently started seeing Dr. Mesa our neurologist and had a recent EEG the end of June and has a scheduled follow-up appointment with her and presents via EMS after having left lower abdominal pain radiating to the left upper quadrant and flank that started today. She denies fever chills nausea or vomiting and says that she had a normal bowel movement earlier today that was not diarrhea black or bloody. Currently in the ED she is status post Versed from EMS and she is groggy but saying that she is still having persistent pain. In route to EMS that she started to have a seizure which is why they give the Versed. The patient prior to starting with Dr. Mesa in June was only treating her seizure disorder with marijuana use as she had told providers in the past that the medications did not control her seizures. Dr. Mesa has placed her on Keppra and she says she takes it twice a day and is compliant. She denies that she is smoking marijuana or doing any other drugs and she does admit she drinks alcohol occasionally but has not had alcohol today. She denies any urinary complaints such as frequency urgency or hematuria and denies fever chills or upper respiratory tract infections. In my review of the patient's record in the computer she was here on May 30 complaining of abdominal pain in the right upper quadrant and had a full workup including a CAT scan which I reviewed. There is no evidence of any kidney stones or abnormalities on that CT scan. She was subsequently seen the end of June for knee pain after having a seizure and has followed up with Dr. Mesa after that ED visit. Shehas not connected with primary care Review of systems: As per history of present illness and below otherwise all systems reviewed and negative. Past medical history: As per history of present illness and as reviewed below otherwise noncontributory. Surgical history: As per history of present illness and as reviewed below otherwise noncontributory. Social history: No reported history of drug or alcohol abuse. Family history: As per history of present illness and as reviewed below otherwise noncontributory. Physical exam: General: Well-developed well-nourished thin female who is nontoxic and has no evidence of tongue trauma or bowel or bladder loss as a result of her seizure in route HEENT: Atraumatic, normocephalic, pupils reactive, negative for conjunctival pallor or scleral icterus, mucous membranes moist, throat clear, neck supple, nontender, trachea midline. Lungs: Clear to auscultation, breath sounds equal bilaterally, chest nontender. Heart: S1S2, regular rate and rhythm no overt murmurs Abdomen: Soft, nondistended, nontender. When I palpate deeply in the left upper and left lower quadrant there is no overt tenderness or rebound or guarding. Bowel sounds are hypoactive. Negative for masses or hepatosplenomegaly. Negative for costovertebral tenderness. Pelvis: Stable nontender. Genitourinary: Deferred. Rectal: Deferred. Extremities: Atraumatic, negative for cords or calf pain. Neurovascular unremarkable. There are no defects or deformities Neuro: Awake, alert, oriented. Cranial nerves II through XII unremarkable. Cerebellum unremarkable. Motor and sensory unremarkable throughout. Exam nonfocal. Diagnostics: CBC CMP amylase lipase hCG UA with reflex culture H. pylori alcohol level UDS scan of the abdomen and pelvis Therapeutics: IV fluids Toradol as needed for pain The patient received Zofran and 2.5 mg of Versed per EMS Patient is asleep in the room and I have woken her up to tell her the testing results. I've advised follow-up in the clinic Impression: Abdominal pain with negative workup Seizure per history from EMS, history of seizures stable Definitive disposition and diagnosis as appropriate pending reevaluation and review of above. Left Upper Abdomen Pain Score (Numeric/FACES): 10 - Related Data Allergies Allergy/AdvReac Type Severity Reaction Status Date / Time No Known Allergies Allergy Verified 07/25/18 19:21 Home Meds: Home Meds levETIRAcetam [Keppra] 500 mg PO BID 07/09/18 [History] Past Medical History HEENT History: Reports: None Cardiovascular History: Reports: None Respiratory History: Reports: None Gastrointestinal History: Reports: None Genitourinary History: Reports: None LADLE FILLER History: Reports: None Musculoskeletal History: Reports: None Neurological History: Reports: Seizure Other Neuro History: states hasn't had a seizure in 3 months, not taking any oral medications for seizures, states she smokes marijuana to contol seizures Psychiatric History: Reports: None Endocrine/Metabolic History: Reports: None Hematologic History: Reports: None Immunologic History: Reports: None Oncologic (Cancer) History: Reports: Cervix Other Oncologic History: stage 2 cervical ca Dermatologic History: Reports: None - Past Surgical History Head Surgeries/Procedures: Reports: None HEENT Surgical History: Reports: None Cardiovascular Surgical History: Reports: None Respiratory Surgical History: Reports: None GI Surgical History: Reports: None Female Surgical History: Reports: None Endocrine Surgical History: Reports: None Neurological Surgical History: Reports: None Musculoskeletal Surgical History: Reports: None Dermatological Surgical History: Reports: None Social & Family History - Family History Family Medical History: Noncontributory Endocrine/Metabolic: Reports: Diabetes, Type I Oncologic: Reports: Other (See Below) Other Oncologic Family History: Cancer - Caffeine Use Caffeine Use: Reports: None ED ROS GENERAL - Review of Systems Review Of Systems: ROS reveals no pertinent complaints other than HPI. ED EXAM, GENERAL - Physical Exam Exam: See Below (See dictation) Course - Vital Signs Last Recorded V/S: Last Vital Signs Temp 36.4 C 07/25/18 21:24 Pulse 58 L 07/25/18 21:24 Resp 16 07/25/18 19:21 BP 100/53 L 07/25/18 21:24 Pulse Ox 97 07/25/18 21:24 - Orders/Labs/Meds Orders: Active Orders 24 hr Category Date Time Status Abdomen Pelvis w Cont [CT] Stat Exams 07/25/18 19:27 Taken Sodium Chloride 0.9% [Saline Flush] Med 07/25/18 19:27 Active 10 ml FLUSH ASDIRECTED PRN Sodium Chloride 0.9% [Saline Flush] Med 07/25/18 19:27 Active 2.5 ml FLUSH ASDIRECTED PRN Saline Lock Insert [OM.PC] Stat Oth 07/25/18 19:26 Ordered Medication Orders Sodium Chloride (Saline Flush) 10 ml FLUSH ASDIRECTED PRN PRN Reason: Keep Vein Open Sodium Chloride (Saline Flush) 2.5 ml FLUSH ASDIRECTED PRN PRN Reason: Keep Vein Open Labs: Laboratory Tests 07/25/18 07/25/18 07/25/18 Range/Units 19:30 19:30 19:38 WBC 9.46 (4.0-11.0) K/uL RBC 4.19 L (4.30-5.90) M/uL Hgb 13.0 (12.0-16.0) g/dL Hct 38.4 (36.0-46.0) % MCV 91.6 (80.0-98.0) fL MCH 31.0 (27.0-32.0) pg MCHC 33.9 (31.0-37.0) g/dL RDW Std Deviation 44.3 (28.0-62.0) fl RDW Coeff of Sudheer 13 (11.0-15.0) % Plt Count 297 (150-400) K/uL MPV 9.80 (7.40-12.00) fL Neut % (Auto) 67.2 (48.0-80.0) % Lymph % (Auto) 25.9 (16.0-40.0) % [place] % (Auto) 6.2 (0.0-15.0) % Eos % (Auto) 0.5 (0.0-7.0) % Baso % (Auto) 0.2 (0.0-1.5) % Neut # (Auto) 6.4 H (1.4-5.7) K/uL Lymph # (Auto) 2.5 H (0.6-2.4) K/uL [place] # (Auto) 0.6 (0.0-0.8) K/uL Eos # (Auto) 0.1 (0.0-0.7) K/uL Baso # (Auto) 0.0 (0.0-0.1) K/uL Nucleated RBC % 0.0 /100WBC Nucleated RBCs # 0 K/uL Sodium (136-145) mmol/L Potassium (3.5-5.1) mmol/L Chloride (98-107) mmol/L Carbon Dioxide (21.0-32.0) mmol/L BUN (7.0-18.0) mg/dL Creatinine (0.6-1.0) mg/dL Est Cr Clr Drug Dosing mL/min Estimated GFR (MDRD) ml/min Glucose (74-106) mg/dL Calcium (8.5-10.1) mg/dL Total Bilirubin (0.2-1.0) mg/dL AST (15-37) IU/L ALT (14-63) IU/L Alkaline Phosphatase (46-116) U/L Total Protein (6.4-8.2) g/dL Albumin (3.4-5.0) g/dL Globulin (2.6-4.0) g/dL Albumin/Globulin Ratio (0.9-1.6) Amylase (25-115) U/L Lipase (73-393) U/L HCG, Qual (NEG) Urine Color YELLOW Urine Appearance SLT CLOUDY Urine pH 6.0 (5.0-8.0) Ur Specific [place] 1.025 (1.001-1.035) Urine Protein NEGATIVE (NEGATIVE) mg/dL Urine Glucose (UA) NEGATIVE (NEGATIVE) mg/dL Urine Ketones TRACE H (NEGATIVE) mg/dL Urine Occult Blood MODERATE H (NEGATIVE) Urine Nitrite NEGATIVE (NEGATIVE) Urine Bilirubin NEGATIVE (NEGATIVE) Urine Urobilinogen 0.2 (<2.0) EU/dL Ur Leukocyte Esterase NEGATIVE (NEGATIVE) Urine RBC 2-4 (0-2/HPF) Urine WBC 1-3 (0-5/HPF) Ur Epithelial Cells MANY (NONE-FEW) Urine Bacteria FEW (NEGATIVE) Urine Opiates Screen NEGATIVE (NEGATIVE) Ur Oxycodone Screen NEGATIVE (NEGATIVE) Urine Methadone Screen NEGATIVE (NEGATIVE) Ur Barbiturates Screen NEGATIVE (NEGATIVE) Ur Phencyclidine Scrn NEGATIVE (NEGATIVE) Ur Amphetamine Screen NEGATIVE (NEGATIVE) U Methamphetamines Scrn NEGATIVE (NEGATIVE) U Benzodiazepines Scrn NEGATIVE (NEGATIVE) U Cocaine Metab Screen NEGATIVE (NEGATIVE) U Marijuana (THC) Screen POSITIVE (NEGATIVE) Ethyl Alcohol mg/dL H. pylori IgG Antibody (NEG) 07/25/18 07/25/18 Range/Units 19:38 19:38 WBC (4.0-11.0) K/uL RBC (4.30-5.90) M/uL Hgb (12.0-16.0) g/dL Hct (36.0-46.0) % MCV (80.0-98.0) fL MCH (27.0-32.0) pg MCHC (31.0-37.0) g/dL RDW Std Deviation (28.0-62.0) fl RDW Coeff of Sudheer (11.0-15.0) % Plt Count (150-400) K/uL MPV (7.40-12.00) fL Neut % (Auto) (48.0-80.0) % Lymph % (Auto) (16.0-40.0) % [place] % (Auto) (0.0-15.0) % Eos % (Auto) (0.0-7.0) % Baso % (Auto) (0.0-1.5) % Neut # (Auto) (1.4-5.7) K/uL Lymph # (Auto) (0.6-2.4) K/uL [place] # (Auto) (0.0-0.8) K/uL Eos # (Auto) (0.0-0.7) K/uL Baso # (Auto) (0.0-0.1) K/uL Nucleated RBC % /100WBC Nucleated RBCs # K/uL Sodium 141 (136-145) mmol/L Potassium 3.9 (3.5-5.1) mmol/L Chloride 105 (98-107) mmol/L Carbon Dioxide 27.7 (21.0-32.0) mmol/L BUN 11 (7.0-18.0) mg/dL Creatinine 0.5 L (0.6-1.0) mg/dL Est Cr Clr Drug Dosing 124.62 mL/min Estimated GFR (MDRD) > 60.0 ml/min Glucose 100 (74-106) mg/dL Calcium 8.9 (8.5-10.1) mg/dL Total Bilirubin 0.3 (0.2-1.0) mg/dL AST 12 L (15-37) IU/L ALT 24 (14-63) IU/L Alkaline Phosphatase 61 (46-116) U/L Total Protein 7.3 (6.4-8.2) g/dL Albumin 3.8 (3.4-5.0) g/dL Globulin 3.5 (2.6-4.0) g/dL Albumin/Globulin Ratio 1.1 (0.9-1.6) Amylase 60 (25-115) U/L Lipase 95 (73-393) U/L HCG, Qual NEGATIVE (NEG) Urine Color Urine Appearance Urine pH (5.0-8.0) Ur Specific [place] (1.001-1.035) Urine Protein (NEGATIVE) mg/dL Urine Glucose (UA) (NEGATIVE) mg/dL Urine Ketones (NEGATIVE) mg/dL Urine Occult Blood (NEGATIVE) Urine Nitrite (NEGATIVE) Urine Bilirubin (NEGATIVE) Urine Urobilinogen (<2.0) EU/dL Ur Leukocyte Esterase (NEGATIVE) Urine RBC (0-2/HPF) Urine WBC (0-5/HPF) Ur Epithelial Cells (NONE-FEW) Urine Bacteria (NEGATIVE) Urine Opiates Screen (NEGATIVE) Ur Oxycodone Screen (NEGATIVE) Urine Methadone Screen (NEGATIVE) Ur Barbiturates Screen (NEGATIVE) Ur Phencyclidine Scrn (NEGATIVE) Ur Amphetamine Screen (NEGATIVE) U Methamphetamines Scrn (NEGATIVE) U Benzodiazepines Scrn (NEGATIVE) U Cocaine Metab Screen (NEGATIVE) U Marijuana (THC) Screen (NEGATIVE) Ethyl Alcohol <3 mg/dL H. pylori IgG Antibody NEGATIVE (NEG) Meds: Medications Generic Name Dose Route Start Last Admin Trade Name Freq PRN Reason Stop Dose Admin Sodium Chloride 10 ml 07/25/18 19:27 Saline Flush FLUSH ASDIRECTED PRN Keep Vein Open Sodium Chloride 2.5 ml 07/25/18 19:27 Saline Flush FLUSH ASDIRECTED PRN Keep Vein Open Discontinued Medications Generic Name Dose Route Start Last Admin Trade Name Freq PRN Reason Stop Dose Admin Sodium Chloride 1,000 mls @ 999 mls/hr 07/25/18 19:27 07/25/18 19:35 Normal Saline IV 07/25/18 20:27 999 mls/hr STAT ONE Administration Iopamidol 100 ml 07/25/18 20:30 07/25/18 20:41 Isovue Multipack-370 (76%) IVPUSH 07/25/18 20:31 100 ml ONETIME STA Administration Ketorolac Tromethamine 30 mg 07/25/18 20:11 Toradol IVPUSH 07/25/18 20:12 ONETIME ONE Departure - Departure Time of Disposition: 21:27 Disposition: Home, Self-Care 01 Condition: Good Clinical Impression: Seizure Abdominal pain Qualifiers: Abdominal location: left lower quadrant Qualified Code(s): R10.32 - Left lower quadrant pain - Discharge Information Referrals: PCP,Unknown [Primary Care Provider] - Forms: ED Department Discharge Additional Instructions: The following information is given to patients seen in the emergency department who are being discharged to home. This information is to outline your options for follow-up care. We provide all patients seen in our emergency department with a follow-up referral. The need for follow-up, as well as the timing and circumstances, are variable depending upon the specifics of your emergency department visit. If you don't have a primary care physician on staff, we will provide you with a referral. We always advise you to contact your personal physician following an emergency department visit to inform them of the circumstance of the visit and for follow-up with them and/or the need for any referrals to a consulting specialist. The emergency department will also refer you to a specialist when appropriate. This referral assures that you have the opportunity for followup care with a specialist. All of these measure are taken in an effort to provide you with optimal care, which includes your followup. Under all circumstances we always encourage you to contact your private physician who remains a resource for coordinating your care. When calling for followup care, please make the office aware that this follow-up is from your recent emergency room visit. If for any reason you are refused follow-up, please contact the [facility] emergency department at and ask to speak to the emergency department charge nurse. [facility] Primary care- [place] [address] Please continue with the medications that you have started for your seizures and call and schedule your follow-up appointment with Dr. Mesa. Please also connect with primary care for further evaluation of today's symptoms and care for them as needed going forward. Push hydration and avoid caffeinated products. Continue to abstain from marijuana use. Return to ER as needed and as discussed - My Orders Last 24 Hours: My Active Orders 07/25/18 19:26 Saline Lock Insert [OM.PC] Stat 07/25/18 19:27 Abdomen Pelvis w Cont [CT] Stat Sodium Chloride 0.9% [Saline Flush] 10 ml FLUSH ASDIRECTED PRN Sodium Chloride 0.9% [Saline Flush] 2.5 ml FLUSH ASDIRECTED PRN - Assessment/Plan Last 24 Hours: My Active Orders 07/25/18 19:26 Saline Lock Insert [OM.PC] Stat 07/25/18 19:27 Abdomen Pelvis w Cont [CT] Stat Sodium Chloride 0.9% [Saline Flush] 10 ml FLUSH ASDIRECTED PRN Sodium Chloride 0.9% [Saline Flush] 2.5 ml FLUSH ASDIRECTED PRN
[2018-07-25] MEDS: Sodium Chloride 0.9% 1,000 ML IV ONE (19:35)
[2018-07-25 20:08] LABS: CHLORIDE,CL 105 mmol/L (98-107); SODIUM,NA 141 mmol/L (136-145)
[2018-07-25] MEDS: Iopamidol 755 MG/ML 500 ML Multipack Bottle IVPUSH STA (20:41)
--- NOTE | 2018-07-25 21:27 | CT ---
INDICATION: Left-sided pain. TECHNIQUE: CT abdomen and pelvis acquired with 100 mL of Isovue 370 IV contrast. COMPARISON: None. FINDINGS: Lower chest: Unremarkable. Liver: Unremarkable. Spleen: Unremarkable. Pancreas: Unremarkable. Gallbladder and bile ducts: Unremarkable. Kidneys: Unremarkable. Adrenal glands: Unremarkable. GI tract: No obstruction or focal inflammatory changes involving the GI tract. No evidence of acute appendicitis. No free air, free fluid or drainable intra-abdominal fluid collection. Vascular structures: Unremarkable. Lymph nodes: Unremarkable. Pelvic Organs: Unremarkable. Bones: No acute abnormality. IMPRESSION: No acute intra-abdominal or pelvic abnormality. Dictated by Sanjay Jacob MD @ 07/25/2018 9:25:41 PM Please note that all CT scans at this facility use dose modulation, iterative reconstruction, and/or weight-based dosing when appropriate to reduce radiation dose to as low as reasonably achievable. Dictated by: Sanjay Jacob MD @ 07/25/2018 21:25:49 (Electronically Signed)
[2018-07-25] MEDS: Ketorolac 30 MG/ML SDV IVPUSH ONE (21:30)
== END 2018-07-25 21:49 | disposition home or self-care (01) ==
LOC: MW.ED 19:18
DX: R56.9 Unspecified convulsions (principal); R10.32 Left lower quadrant pain
CPT/HCPCS: 36415; 74177; 80053; 80305; 81001; 82150; 83690; 84703; 85025; 86677; 87624; 96361; 96374; 99285; G0145; G0480; J1885; J7040; Q9967

== ENCOUNTER 2018-07-28 20:53 | Emergency (ER) | payer OTHER ==
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
[2018-07-28 21:28] LABS: CHLORIDE,CL 105 mmol/L (98-107); SODIUM,NA 142 mmol/L (136-145)
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
== END 2018-07-28 23:20 | disposition home or self-care (01) ==
LOC: MW.ED 20:53
DX: S69.91XA Unspecified injury of right wrist, hand and finger(s), initial encounter (principal); S89.92XA Unspecified injury of left lower leg, initial encounter; S89.91XA Unspecified injury of right lower leg, initial encounter; V49.40XA Driver injured in collision with unspecified motor vehicles in traffic accident, initial encounter; Z79.899 Other long term (current) drug therapy
CPT/HCPCS: 36415; 70450; 70450-26; 71045; 71045-26; 72125; 72125-26; 72170; 72170-26; 73120-26-RT; 73120-RT; 735602650; 73560-50; 80053; 80177; 81003; 81025; 85025; 93005; 99284; 99285-25

== ENCOUNTER 2018-11-05 23:53 | Emergency (ER) | payer OTHER ==
[2018-11-05] MEDS ORDERED: Sodium Chloride 0.9% 2.5 ML Syringe FLUSH PRN (23:58)
[2018-11-05] MEDS ORDERED: Sodium Chloride 0.9% 1,000 ML IV ONE (23:58)
[2018-11-05] MEDS ORDERED: Sodium Chloride 0.9% 10 ML Syringe FLUSH PRN (23:58)
--- NOTE | 2018-11-06 00:03 | EDM.PDOC ---
ED HPI GENERAL MEDICAL PROBLEM - General Stated Complaint: LUDIVINAZURE Time Seen by Provider: 11/05/18 23:56 - History of Present Illness INITIAL COMMENTS - FREE TEXT/NARRATIVE: HISTORY AND PHYSICAL: History of present illness: Patient 23-year-old female with a known seizure disorder was been seen prior for the same presents status post seizure was witnessed at work paramedics were notified patient had subsequent seizure activity and was given Versed 2.5 mg on arrival here she is awake follows commands moves all extremities is limited grossly nonfocal exam and no complaints. There is no associated trauma reported this patient states she has not been compliant with her Keppra. Review of systems: As per history of present illness and below otherwise all systems reviewed and negative. Past medical history: As per history of present illness and as reviewed below otherwise noncontributory. Surgical history: As per history of present illness and as reviewed below otherwise noncontributory. Social history: No reported history of drug or alcohol abuse. Family history: As per history of present illness and as reviewed below otherwise noncontributory. Physical exam: HEENT: Atraumatic, normocephalic, pupils reactive, negative for conjunctival pallor or scleral icterus, mucous membranes moist, throat clear, neck supple, nontender, trachea midline. Lungs: Clear to auscultation, breath sounds equal bilaterally, chest nontender. Heart: S1S2, regular, negative for clicks, rubs, or JVD. Abdomen: Soft, nondistended, nontender. Negative for masses or hepatosplenomegaly. Negative for costovertebral tenderness. Pelvis: Stable nontender. Genitourinary: Deferred. Rectal: Deferred. Extremities: Atraumatic, negative for cords or calf pain. Neurovascular unremarkable. Neuro: Awake, alert, oriented. Cranial nerves II through XII unremarkable. Cerebellum unremarkable. Motor and sensory unremarkable throughout. Exam nonfocal. Diagnostics: CBC CMP hCG chest x-ray EKG Keppra level Therapeutics: IV O2 monitor Keppra 500 mg IV Impression: #1 seizure with known seizure disorder #2 medical noncompliance Definitive disposition and diagnosis as appropriate pending reevaluation and review of above. head Pain Score (Numeric/FACES): 8 - Related Data Allergies Allergy/AdvReac Type Severity Reaction Status Date / Time No Known Allergies Allergy Verified 11/06/18 00:03 Home Meds: Home Meds levETIRAcetam [Keppra] 500 mg PO BID 07/09/18 [History] Past Medical History HEENT History: Reports: None Cardiovascular History: Reports: None Respiratory History: Reports: None Gastrointestinal History: Reports: None Genitourinary History: Reports: None [employer] History: Reports: None Musculoskeletal History: Reports: None Neurological History: Reports: Seizure Other Neuro History: states hasn't had a seizure in 3 months, not taking any oral medications for seizures, states she smokes marijuana to contol seizures Psychiatric History: Reports: None Endocrine/Metabolic History: Reports: None Hematologic History: Reports: None Immunologic History: Reports: None Oncologic (Cancer) History: Reports: Cervix Other Oncologic History: stage 2 cervical ca Dermatologic History: Reports: None - Infectious Disease History Infectious Disease History: Reports: None - Past Surgical History Head Surgeries/Procedures: Reports: None HEENT Surgical History: Reports: None Cardiovascular Surgical History: Reports: None Respiratory Surgical History: Reports: None GI Surgical History: Reports: None Female Surgical History: Reports: None Endocrine Surgical History: Reports: None Neurological Surgical History: Reports: None Musculoskeletal Surgical History: Reports: None Dermatological Surgical History: Reports: None Social & Family History - Family History Family Medical History: Noncontributory Endocrine/Metabolic: Reports: Diabetes, Type I Oncologic: Reports: Other (See Below) Other Oncologic Family History: Cancer - Caffeine Use Caffeine Use: Reports: None ED ROS GENERAL - Review of Systems Review Of Systems: ROS reveals no pertinent complaints other than HPI. ED EXAM, GENERAL - Physical Exam Exam: See Below (The dictation) Course - Vital Signs Last Recorded V/S: Last Vital Signs Temp 36.6 C 11/06/18 02:00 Pulse 71 11/06/18 02:00 Resp 16 11/06/18 02:00 BP 103/62 11/06/18 02:00 Pulse Ox 98 11/06/18 02:00 - Orders/Labs/Meds Orders: Active Orders 24 hr Category Date Time Status Cardiac Monitoring [RC] . DIRECTED Care 11/05/18 23:58 Active EKG Documentation Completion [RC] STAT Care 11/05/18 23:58 Active LEVETIRACETAM, S [REF] Routine Lab 11/06/18 00:20 Received Saline Lock Insert [OM.PC] Stat Oth 11/05/18 23:58 Ordered Labs: Laboratory Tests 11/05/18 11/05/18 11/06/18 Range/Units 23:56 23:56 01:07 WBC 10.72 (4.0-11.0) K/uL RBC 4.22 L (4.30-5.90) M/uL Hgb 12.6 (12.0-16.0) g/dL Hct 38.2 (36.0-46.0) % MCV 90.5 (80.0-98.0) fL MCH 29.9 (27.0-32.0) pg MCHC 33.0 (31.0-37.0) g/dL RDW Std Deviation 42.7 (28.0-62.0) fl RDW Coeff of Sudheer 13 (11.0-15.0) % Plt Count 290 (150-400) K/uL MPV 10.00 (7.40-12.00) fL Neut % (Auto) 62.6 (48.0-80.0) % Lymph % (Auto) 30.4 (16.0-40.0) % Robertson % (Auto) 6.0 (0.0-15.0) % Eos % (Auto) 0.8 (0.0-7.0) % Baso % (Auto) 0.2 (0.0-1.5) % Neut # (Auto) 6.7 H (1.4-5.7) K/uL Lymph # (Auto) 3.3 H (0.6-2.4) K/uL Robertson # (Auto) 0.6 (0.0-0.8) K/uL Eos # (Auto) 0.1 (0.0-0.7) K/uL Baso # (Auto) 0.0 (0.0-0.1) K/uL Nucleated RBC % 0.0 /100WBC Nucleated RBCs # 0 K/uL Sodium 139 (136-145) mmol/L Potassium 4.6 (3.5-5.1) mmol/L Chloride 106 (98-107) mmol/L Carbon Dioxide 27.7 (21.0-32.0) mmol/L BUN 16 (7.0-18.0) mg/dL Creatinine 0.5 L (0.6-1.0) mg/dL Est Cr Clr Drug Dosing TNP Estimated GFR (MDRD) > 60.0 ml/min Glucose 93 (74-106) mg/dL Calcium 8.1 L (8.5-10.1) mg/dL Total Bilirubin 0.2 (0.2-1.0) mg/dL AST 17 (15-37) IU/L ALT 36 (14-63) IU/L Alkaline Phosphatase 50 (46-116) U/L Total Protein 6.6 (6.4-8.2) g/dL Albumin 3.4 (3.4-5.0) g/dL Globulin 3.2 (2.6-4.0) g/dL Albumin/Globulin Ratio 1.1 (0.9-1.6) Urine HCG, Qual NEGATIVE (NEGATIVE) Urine Opiates Screen (NEGATIVE) Ur Oxycodone Screen (NEGATIVE) Urine Methadone Screen (NEGATIVE) Ur Barbiturates Screen (NEGATIVE) Ur Phencyclidine Scrn (NEGATIVE) Ur Amphetamine Screen (NEGATIVE) U Methamphetamines Scrn (NEGATIVE) U Benzodiazepines Scrn (NEGATIVE) U Cocaine Metab Screen (NEGATIVE) U Marijuana (THC) Screen (NEGATIVE) 11/06/18 Range/Units 01:07 WBC (4.0-11.0) K/uL RBC (4.30-5.90) M/uL Hgb (12.0-16.0) g/dL Hct (36.0-46.0) % MCV (80.0-98.0) fL MCH (27.0-32.0) pg MCHC (31.0-37.0) g/dL RDW Std Deviation (28.0-62.0) fl RDW Coeff of Sudheer (11.0-15.0) % Plt Count (150-400) K/uL MPV (7.40-12.00) fL Neut % (Auto) (48.0-80.0) % Lymph % (Auto) (16.0-40.0) % Robertson % (Auto) (0.0-15.0) % Eos % (Auto) (0.0-7.0) % Baso % (Auto) (0.0-1.5) % Neut # (Auto) (1.4-5.7) K/uL Lymph # (Auto) (0.6-2.4) K/uL Robertson # (Auto) (0.0-0.8) K/uL Eos # (Auto) (0.0-0.7) K/uL Baso # (Auto) (0.0-0.1) K/uL Nucleated RBC % /100WBC Nucleated RBCs # K/uL Sodium (136-145) mmol/L Potassium (3.5-5.1) mmol/L Chloride (98-107) mmol/L Carbon Dioxide (21.0-32.0) mmol/L BUN (7.0-18.0) mg/dL Creatinine (0.6-1.0) mg/dL Est Cr Clr Drug Dosing Estimated GFR (MDRD) ml/min Glucose (74-106) mg/dL Calcium (8.5-10.1) mg/dL Total Bilirubin (0.2-1.0) mg/dL AST (15-37) IU/L ALT (14-63) IU/L Alkaline Phosphatase (46-116) U/L Total Protein (6.4-8.2) g/dL Albumin (3.4-5.0) g/dL Globulin (2.6-4.0) g/dL Albumin/Globulin Ratio (0.9-1.6) Urine HCG, Qual (NEGATIVE) Urine Opiates Screen NEGATIVE (NEGATIVE) Ur Oxycodone Screen NEGATIVE (NEGATIVE) Urine Methadone Screen NEGATIVE (NEGATIVE) Ur Barbiturates Screen NEGATIVE (NEGATIVE) Ur Phencyclidine Scrn NEGATIVE (NEGATIVE) Ur Amphetamine Screen NEGATIVE (NEGATIVE) U Methamphetamines Scrn NEGATIVE (NEGATIVE) U Benzodiazepines Scrn NEGATIVE (NEGATIVE) U Cocaine Metab Screen NEGATIVE (NEGATIVE) U Marijuana (THC) Screen NEGATIVE (NEGATIVE) Meds: Medications Discontinued Medications Generic Name Dose Route Start Last Admin Trade Name Freq PRN Reason Stop Dose Admin Sodium Chloride 1,000 mls @ 999 mls/hr 11/05/18 23:58 11/06/18 00:09 Normal Saline IV 11/06/18 00:58 999 mls/hr STAT ONE Administration Levetiracetam 500 mg/ Dextrose 105 mls @ 420 mls/hr 11/06/18 00:00 11/06/18 00:31 /Water IV 11/06/18 00:14 420 mls/hr Q12H ONE Administration Sodium Chloride 10 ml 11/05/18 23:58 Saline Flush FLUSH ASDIRECTED PRN Keep Vein Open Sodium Chloride 2.5 ml 11/05/18 23:58 Saline Flush FLUSH ASDIRECTED PRN Keep Vein Open Departure - Departure Time of Disposition: 02:54 Disposition: Home, Self-Care 01 Condition: Good Clinical Impression: Seizure disorder, Medical non-compliance - Discharge Information Instructions: Seizure, Adult, [id number] Referrals: PCP,None [Primary Care Provider] - Forms: ED Department Discharge Additional Instructions: The following information is given to patients seen in the emergency department who are being discharged to home. This information is to outline your options for follow-up care. We provide all patients seen in our emergency department with a follow-up referral. The need for follow-up, as well as the timing and circumstances, are variable depending upon the specifics of your emergency department visit. If you don't have a primary care physician on staff, we will provide you with a referral. We always advise you to contact your personal physician following an emergency department visit to inform them of the circumstance of the visit and for follow-up with them and/or the need for any referrals to a consulting specialist. The emergency department will also refer you to a specialist when appropriate. This referral assures that you have the opportunity for followup care with a specialist. All of these measure are taken in an effort to provide you with optimal care, which includes your followup. Under all circumstances we always encourage you to contact your private physician who remains a resource for coordinating your care. When calling for followup care, please make the office aware that this follow-up is from your recent emergency room visit. If for any reason you are refused follow-up, please contact the [facility] emergency department at and asked to speak to the emergency department charge nurse. Medications as prescribed follow-up neurology and private medical doctor as discussed return as needed as discussed - My Orders Last 24 Hours: My Active Orders 11/05/18 23:58 Cardiac Monitoring [RC] . DIRECTED EKG Documentation Completion [RC] STAT Saline Lock Insert [OM.PC] Stat 11/06/18 00:20 LEVETIRACETAM, S [REF] Routine - Assessment/Plan Last 24 Hours: My Active Orders 11/05/18 23:58 Cardiac Monitoring [RC] . DIRECTED EKG Documentation Completion [RC] STAT Saline Lock Insert [OM.PC] Stat 11/06/18 00:20 LEVETIRACETAM, S [REF] Routine
--- NOTE | 2018-11-06 00:27 | CR ---
INDICATION: chest pain, dyspnea TECHNIQUE: Chest radiograph 1 view COMPARISON: 07/28/18 FINDINGS: Mediastinum: The mediastinum is normal in appearance. The heart silhouette is normal in size and morphology. Lung: Both lungs are unremarkable in appearance. No sign of pleural effusion seen. No pneumothorax is identified. IMPRESSION: 1. No acute cardiopulmonary disease is seen. Dictated by: Josh Astudillo MD @ 11/06/2018 00:25:13 (Electronically Signed)
[2018-11-06 00:46] LABS: CHLORIDE,CL 106 mmol/L (98-107); SODIUM,NA 139 mmol/L (136-145)
== END 2018-11-06 02:05 | disposition home or self-care (01) ==
LOC: MW.ED 23:53
DX: G40.909 Epilepsy, unspecified, not intractable, without status epilepticus (principal); Z91.19 Patient's noncompliance with other medical treatment and regimen; Z79.899 Other long term (current) drug therapy
CPT/HCPCS: 36415; 71045; 80053; 80177; 80305; 81025; 85025; 93005; 96374; 99285; J1953; J7040; J7060; 99283

== ENCOUNTER 2018-11-07 17:58 | Emergency (ER) | payer OTHER ==
--- NOTE | 2018-11-07 18:12 | EDM.PDOC ---
ED HPI GENERAL MEDICAL PROBLEM - General Stated Complaint: seizure Time Seen by Provider: 11/07/18 18:07 - History of Present Illness INITIAL COMMENTS - FREE TEXT/NARRATIVE: HISTORY AND PHYSICAL: History of present illness: Patient 23-year-old male with a known seizure disorder in known medical noncompliance who presents status post seizure she was seen several days prior by myself for the same I do lengthy discussion with her regarding her medical noncompliance she did except IV Keppra on that visit she has been noncompliant since she has no other complaints here on arrival and is requesting discharge I again reemphasized to her the need for medical compliance or change of medication in coordination with her neurologist Dr. Mesa Review of systems: As per history of present illness and below otherwise all systems reviewed and negative. Past medical history: As per history of present illness and as reviewed below otherwise noncontributory. Surgical history: As per history of present illness and as reviewed below otherwise noncontributory. Social history: No reported history of drug or alcohol abuse. Family history: As per history of present illness and as reviewed below otherwise noncontributory. Physical exam: HEENT: Atraumatic, normocephalic, pupils reactive, negative for conjunctival pallor or scleral icterus, mucous membranes moist, throat clear, neck supple, nontender, trachea midline. Lungs: Clear to auscultation, breath sounds equal bilaterally, chest nontender. Heart: S1S2, regular, negative for clicks, rubs, or JVD. Abdomen: Soft, nondistended, nontender. Negative for masses or hepatosplenomegaly. Negative for costovertebral tenderness. Pelvis: Stable nontender. Genitourinary: Deferred. Rectal: Deferred. Extremities: Atraumatic, negative for cords or calf pain. Neurovascular unremarkable. Neuro: Awake, alert, oriented. Cranial nerves II through XII unremarkable. Cerebellum unremarkable. Motor and sensory unremarkable throughout. Exam nonfocal. Diagnostics: Deferred Therapeutics: Deferred Impression: #1 seizure with known seizure disorder #2 medical noncompliance #3 medical screening exam Definitive disposition and diagnosis as appropriate pending reevaluation and review of above. - Related Data Allergies Allergy/AdvReac Type Severity Reaction Status Date / Time No Known Allergies Allergy Verified 11/06/18 00:03 Home Meds: Home Meds levETIRAcetam [Keppra] 500 mg PO BID 07/09/18 [History] Past Medical History HEENT History: Reports: None Cardiovascular History: Reports: None Respiratory History: Reports: None Gastrointestinal History: Reports: None Genitourinary History: Reports: None [employer] History: Reports: None Musculoskeletal History: Reports: None Neurological History: Reports: Seizure Other Neuro History: states hasn't had a seizure in 3 months, not taking any oral medications for seizures, states she smokes marijuana to contol seizures Psychiatric History: Reports: None Endocrine/Metabolic History: Reports: None Hematologic History: Reports: None Immunologic History: Reports: None Oncologic (Cancer) History: Reports: Cervix Other Oncologic History: stage 2 cervical ca Dermatologic History: Reports: None - Infectious Disease History Infectious Disease History: Reports: None - Past Surgical History Head Surgeries/Procedures: Reports: None HEENT Surgical History: Reports: None Cardiovascular Surgical History: Reports: None Respiratory Surgical History: Reports: None GI Surgical History: Reports: None Female Surgical History: Reports: None Endocrine Surgical History: Reports: None Neurological Surgical History: Reports: None Musculoskeletal Surgical History: Reports: None Dermatological Surgical History: Reports: None Social & Family History - Family History Family Medical History: Noncontributory Endocrine/Metabolic: Reports: Diabetes, Type I Oncologic: Reports: Other (See Below) Other Oncologic Family History: Cancer - Caffeine Use Caffeine Use: Reports: None ED ROS GENERAL - Review of Systems Review Of Systems: ROS reveals no pertinent complaints other than HPI. ED EXAM, GENERAL - Physical Exam Exam: See Below (See dictation) Departure - Departure Time of Disposition: 18:11 Disposition: Home, Self-Care 01 Condition: Good Clinical Impression: Encounter for medical screening examination, Seizure disorder, Medical non- compliance - Discharge Information Additional Instructions: The following information is given to patients seen in the emergency department who are being discharged to home. This information is to outline your options for follow-up care. We provide all patients seen in our emergency department with a follow-up referral. The need for follow-up, as well as the timing and circumstances, are variable depending upon the specifics of your emergency department visit. If you don't have a primary care physician on staff, we will provide you with a referral. We always advise you to contact your personal physician following an emergency department visit to inform them of the circumstance of the visit and for follow-up with them and/or the need for any referrals to a consulting specialist. The emergency department will also refer you to a specialist when appropriate. This referral assures that you have the opportunity for followup care with a specialist. All of these measure are taken in an effort to provide you with optimal care, which includes your followup. Under all circumstances we always encourage you to contact your private physician who remains a resource for coordinating your care. When calling for followup care, please make the office aware that this follow-up is from your recent emergency room visit. If for any reason you are refused follow-up, please contact the [facility] emergency department at and asked to speak to the emergency department charge nurse. Follow-up primary medical doctor and neurology as discussed medications as directed return as needed as discussed
== END 2018-11-07 18:20 | disposition home or self-care (01) ==
LOC: MW.ED 17:58
DX: G40.909 Epilepsy, unspecified, not intractable, without status epilepticus (principal); Z91.19 Patient's noncompliance with other medical treatment and regimen
CPT/HCPCS: 99282; 99284

== ENCOUNTER 2019-01-13 19:26 | Emergency (ER) | payer SELFPAY ==
[2019-01-13] MEDS ORDERED: Succinylcholine 200 MG/10 ML MDV IV ONE (19:27)
[2019-01-13] MEDS ORDERED: Rocuronium 100 MG/10 ML MDV IVPUSH ONE (19:27)
[2019-01-13] MEDS ORDERED: Sodium Chloride 0.9% 1,000 ML IV ONE (19:28)
--- NOTE | 2019-01-13 19:29 | EDM.PDOC ---
ED HPI GENERAL MEDICAL PROBLEM - General Chief Complaint: Neurological Problem Stated Complaint: SEIZURE Time Seen by Provider: 01/13/19 19:29 Source of Information: Reports: Patient - History of Present Illness INITIAL COMMENTS - FREE TEXT/NARRATIVE: HISTORY AND PHYSICAL: History of present illness: [Patient with history of seizure disorder presents with seizure just prior to arrival She arrives via EMS in no apparent distress , interactive and talking, however she receives, currently in status epilepticus I was able to get some history apparently she does take Keppra however it discontinued this one month ago she stated that she had been restarting her medication at previous dosing, ] Review of systems: As per history of present illness and below otherwise all systems reviewed and negative. Past medical history: As per history of present illness and as reviewed below otherwise noncontributory. Surgical history: As per history of present illness and as reviewed below otherwise noncontributory. Social history: No reported history of drug or alcohol abuse. Family history: As per history of present illness and as reviewed below otherwise noncontributory. Physical exam: HEENT: Atraumatic, normocephalic, pupils reactive, negative for conjunctival pallor or scleral icterus, mucous membranes moist, throat clear, neck supple, nontender, trachea midline. Lungs: Clear to auscultation, breath sounds equal bilaterally, chest nontender. Heart: S1S2, regular, negative for clicks, rubs, or JVD. Abdomen: Soft, nondistended, nontender. Negative for masses or hepatosplenomegaly. Negative for costovertebral tenderness. Pelvis: Stable nontender. Genitourinary: Deferred. Rectal: Deferred. Extremities: Atraumatic, negative for cords or calf pain. Neurovascular unremarkable. Neuro: Awake, alert, oriented. Cranial nerves II through XII unremarkable. Cerebellum unremarkable. Motor and sensory unremarkable throughout. Exam nonfocal. Diagnostics: [CBC CMP UA hCG alcohol drug screen] EKG Chest 1 view Chest 1 view-post intubation Therapeutics: []Normal saline Valium Keppra 1500 mg IV Pt intubated by Dr. Jimenez see his note for anesthesia details Impression: Status epilepticus Education noncompliance History of seizure disorder] Definitive disposition and diagnosis as appropriate pending reevaluation and review of above. 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 Musculoskeletal History: Reports: None Neurological History: Reports: Seizure Other Neuro History: states hasn't had a seizure in 3 months, not taking any oral medications for seizures, states she smokes marijuana to contol seizures Psychiatric History: Reports: None Endocrine/Metabolic History: Reports: None Hematologic History: Reports: None Immunologic History: Reports: None Oncologic (Cancer) History: Reports: Cervix Other Oncologic History: stage 2 cervical ca Dermatologic History: Reports: None - Infectious Disease History Infectious Disease History: Reports: None - Past Surgical History Head Surgeries/Procedures: Reports: None HEENT Surgical History: Reports: None Cardiovascular Surgical History: Reports: None Respiratory Surgical History: Reports: None GI Surgical History: Reports: None Female Surgical History: Reports: None Endocrine Surgical History: Reports: None Neurological Surgical History: Reports: None Musculoskeletal Surgical History: Reports: None Dermatological Surgical History: Reports: None Social & Family History - Family History Family Medical History: Noncontributory Endocrine/Metabolic: Reports: Diabetes, Type I Oncologic: Reports: Other (See Below) Other Oncologic Family History: Cancer - Caffeine Use Caffeine Use: Reports: None ED ROS GENERAL - Review of Systems Review Of Systems: See Below ED EXAM, GENERAL - Physical Exam Exam: See Below Course - Vital Signs Last Recorded V/S: Last Vital Signs Temp 97.5 F 01/13/19 19:27 Pulse 67 01/13/19 19:27 Resp 14 01/13/19 19:27 BP 113/82 01/13/19 19:27 Pulse Ox 100 01/13/19 19:27 - Orders/Labs/Meds Orders: Active Orders 24 hr Category Date Time Status EKG Documentation Completion [RC] STAT Care 01/13/19 19:28 Active Chest 1V Frontal [CR] Stat Exams 01/13/19 21:01 Ordered Labs: Laboratory Tests 01/13/19 01/13/19 01/13/19 Range/Units 18:27 18:27 19:28 WBC 8.14 (4.0-11.0) K/uL RBC 4.45 (4.30-5.90) M/uL Hgb 13.8 (12.0-16.0) g/dL Hct 40.5 (36.0-46.0) % MCV 91.0 (80.0-98.0) fL MCH 31.0 (27.0-32.0) pg MCHC 34.1 (31.0-37.0) g/dL RDW Std Deviation 43.8 (28.0-62.0) fl RDW Coeff of Sudheer 13 (11.0-15.0) % Plt Count 291 (150-400) K/uL MPV 10.10 (7.40-12.00) fL Neut % (Auto) 60.6 (48.0-80.0) % Lymph % (Auto) 32.9 (16.0-40.0) % [place] % (Auto) 5.5 (0.0-15.0) % Eos % (Auto) 0.9 (0.0-7.0) % Baso % (Auto) 0.1 (0.0-1.5) % Neut # (Auto) 4.9 (1.4-5.7) K/uL Lymph # (Auto) 2.7 H (0.6-2.4) K/uL [place] # (Auto) 0.5 (0.0-0.8) K/uL Eos # (Auto) 0.1 (0.0-0.7) K/uL Baso # (Auto) 0.0 (0.0-0.1) K/uL Nucleated RBC % 0.0 /100WBC Nucleated RBCs # 0 K/uL Sodium 140 (136-145) mmol/L Potassium 3.7 (3.5-5.1) mmol/L Chloride 104 (98-107) mmol/L Carbon Dioxide 29.6 (21.0-32.0) mmol/L BUN 9 (7.0-18.0) mg/dL Creatinine 0.6 (0.6-1.0) mg/dL Est Cr Clr Drug Dosing 102.95 mL/min Estimated GFR (MDRD) > 60.0 ml/min Glucose 87 (74-106) mg/dL Calcium 9.2 (8.5-10.1) mg/dL Magnesium 1.9 (1.8-2.4) mg/dL Total Bilirubin 0.5 (0.2-1.0) mg/dL AST 26 (15-37) IU/L ALT 44 (14-63) IU/L Alkaline Phosphatase 63 (46-116) U/L Total Protein 7.1 (6.4-8.2) g/dL Albumin 3.7 (3.4-5.0) g/dL Globulin 3.4 (2.6-4.0) g/dL Albumin/Globulin Ratio 1.1 (0.9-1.6) Urine Color YELLOW Urine Appearance SLT CLOUDY Urine pH 5.5 (5.0-8.0) Ur Specific [place] >= 1.030 (1.001-1.035) Urine Protein NEGATIVE (NEGATIVE) mg/dL Urine Glucose (UA) NEGATIVE (NEGATIVE) mg/dL Urine Ketones NEGATIVE (NEGATIVE) mg/dL Urine Occult Blood TRACE-INTACT H (NEGATIVE) Urine Nitrite NEGATIVE (NEGATIVE) Urine Bilirubin NEGATIVE (NEGATIVE) Urine Urobilinogen 0.2 (<2.0) EU/dL Ur Leukocyte Esterase NEGATIVE (NEGATIVE) Urine RBC 0-2 (0-2/HPF) Urine WBC 0-2 (0-5/HPF) Ur Epithelial Cells MANY (NONE-FEW) Urine Bacteria RARE (NEGATIVE) Urine Mucus LIGHT (NONE-MOD) Urine HCG, Qual (NEGATIVE) Urine Opiates Screen (NEGATIVE) Ur Oxycodone Screen (NEGATIVE) Urine Methadone Screen (NEGATIVE) Ur Barbiturates Screen (NEGATIVE) Ur Phencyclidine Scrn (NEGATIVE) Ur Amphetamine Screen (NEGATIVE) U Methamphetamines Scrn (NEGATIVE) U Benzodiazepines Scrn (NEGATIVE) U Cocaine Metab Screen (NEGATIVE) U Marijuana (THC) Screen (NEGATIVE) Ethyl Alcohol < 3.0 mg/dL 01/13/19 01/13/19 Range/Units 19:28 19:28 WBC (4.0-11.0) K/uL RBC (4.30-5.90) M/uL Hgb (12.0-16.0) g/dL Hct (36.0-46.0) % MCV (80.0-98.0) fL MCH (27.0-32.0) pg MCHC (31.0-37.0) g/dL RDW Std Deviation (28.0-62.0) fl RDW Coeff of Sudheer (11.0-15.0) % Plt Count (150-400) K/uL MPV (7.40-12.00) fL Neut % (Auto) (48.0-80.0) % Lymph % (Auto) (16.0-40.0) % [place] % (Auto) (0.0-15.0) % Eos % (Auto) (0.0-7.0) % Baso % (Auto) (0.0-1.5) % Neut # (Auto) (1.4-5.7) K/uL Lymph # (Auto) (0.6-2.4) K/uL [place] # (Auto) (0.0-0.8) K/uL Eos # (Auto) (0.0-0.7) K/uL Baso # (Auto) (0.0-0.1) K/uL Nucleated RBC % /100WBC Nucleated RBCs # K/uL Sodium (136-145) mmol/L Potassium (3.5-5.1) mmol/L Chloride (98-107) mmol/L Carbon Dioxide (21.0-32.0) mmol/L BUN (7.0-18.0) mg/dL Creatinine (0.6-1.0) mg/dL Est Cr Clr Drug Dosing mL/min Estimated GFR (MDRD) ml/min Glucose (74-106) mg/dL Calcium (8.5-10.1) mg/dL Magnesium (1.8-2.4) mg/dL Total Bilirubin (0.2-1.0) mg/dL AST (15-37) IU/L ALT (14-63) IU/L Alkaline Phosphatase (46-116) U/L Total Protein (6.4-8.2) g/dL Albumin (3.4-5.0) g/dL Globulin (2.6-4.0) g/dL Albumin/Globulin Ratio (0.9-1.6) Urine Color Urine Appearance Urine pH (5.0-8.0) Ur Specific [place] (1.001-1.035) Urine Protein (NEGATIVE) mg/dL Urine Glucose (UA) (NEGATIVE) mg/dL Urine Ketones (NEGATIVE) mg/dL Urine Occult Blood (NEGATIVE) Urine Nitrite (NEGATIVE) Urine Bilirubin (NEGATIVE) Urine Urobilinogen (<2.0) EU/dL Ur Leukocyte Esterase (NEGATIVE) Urine RBC (0-2/HPF) Urine WBC (0-5/HPF) Ur Epithelial Cells (NONE-FEW) Urine Bacteria (NEGATIVE) Urine Mucus (NONE-MOD) Urine HCG, Qual NEGATIVE (NEGATIVE) Urine Opiates Screen NEGATIVE (NEGATIVE) Ur Oxycodone Screen NEGATIVE (NEGATIVE) Urine Methadone Screen NEGATIVE (NEGATIVE) Ur Barbiturates Screen NEGATIVE (NEGATIVE) Ur Phencyclidine Scrn NEGATIVE (NEGATIVE) Ur Amphetamine Screen NEGATIVE (NEGATIVE) U Methamphetamines Scrn NEGATIVE (NEGATIVE) U Benzodiazepines Scrn NEGATIVE (NEGATIVE) U Cocaine Metab Screen NEGATIVE (NEGATIVE) U Marijuana (THC) Screen POSITIVE (NEGATIVE) Ethyl Alcohol mg/dL Meds: Medications Discontinued Medications Generic Name Dose Route Start Last Admin Trade Name Freq PRN Reason Stop Dose Admin Diazepam 5 mg 01/13/19 19:28 01/13/19 19:56 Valium IVPUSH 01/13/19 19:29 5 mg ONETIME ONE Administration Diazepam 5 mg 01/13/19 19:43 01/13/19 19:56 Valium IVPUSH 01/13/19 19:44 Not Given ONETIME ONE Diazepam Confirm 01/13/19 19:54 01/13/19 19:56 Valium Administered 01/13/19 19:55 Not Given Dose 5 mg .ROUTE .STK-MED ONE Sodium Chloride 1,000 mls @ 999 mls/hr 01/13/19 19:28 01/13/19 19:55 Normal Saline IV 01/13/19 20:28 999 mls/hr STAT ONE Administration Levetiracetam 1,500 mg/ 115 mls @ 460 mls/hr 01/13/19 20:17 01/13/19 20:39 Dextrose/Water IV 01/13/19 20:31 460 mls/hr NOW STA Administration Ondansetron HCl 8 mg 01/13/19 20:53 Zofran IVPUSH 01/13/19 20:54 ONETIME ONE Propofol Confirm 01/13/19 20:52 Diprivan 20 Ml Administered 01/13/19 20:53 Dose 200 mg .ROUTE .STK-MED ONE Departure - Departure Time of Disposition: 21:03 Disposition: DC/Tfer to Acute Hospital 02 Condition: Poor Clinical Impression: Status epilepticus - Discharge Information Referrals: PCP,None [Primary Care Provider] - Forms: ED Department Discharge - My Orders Last 24 Hours: My Active Orders 01/13/19 19:28 EKG Documentation Completion [RC] STAT 01/13/19 21:01 Chest 1V Frontal [CR] Stat - Assessment/Plan Last 24 Hours: My Active Orders 01/13/19 19:28 EKG Documentation Completion [RC] STAT 01/13/19 21:01 Chest 1V Frontal [CR] Stat
[2019-01-13] MEDS ORDERED: diazePAM 5 MG/ML MDV ONE (19:54)
[2019-01-13 20:06] LABS: BLOOD UREA NITROGEN,BUN 9 mg/dL (7.0-18.0); CARBON DIOXIDE,CO2 29.6 mmol/L (21.0-32.0); CHLORIDE,CL 104 mmol/L (98-107); GLUCOSE RANDOM 87 mg/dL (74-106); POTASSIUM,K 3.7 mmol/L (3.5-5.1); SODIUM,NA 140 mmol/L (136-145)
--- NOTE | 2019-01-13 20:17 | CR ---
INDICATION: [id number]. Seizure activity. TECHNIQUE: Chest 1 views COMPARISON: 11/06/2018. FINDINGS: Cardiovascular and mediastinum: Heart size and vasculature are normal in caliber and appearance. Lungs and pleural spaces: Lungs are clear. No sign of infiltrate or mass. No sign of pleural effusion. No pneumothorax. Bones and soft tissues: No significant findings. IMPRESSION: No acute findings and no significant changes from the prior exam. Dictated by Cain Villalobos MD @ Jan 13 2019 8:14PM Signed by Dr. Cain Villalobos @ Jan 13 2019 8:16PM
[2019-01-13] MEDS ORDERED: Sodium Chloride 0.9% 1,000 ML IV SCH (20:45)
[2019-01-13] MEDS ORDERED: Propofol 200 MG/20 ML SDV ONE (20:52)
[2019-01-13] MEDS ORDERED: Ondansetron 4 MG/2 ML SDV IVPUSH ONE (20:53)
[2019-01-13] MEDS ORDERED: Propofol 200 MG/20 ML SDV IVPUSH ONE (21:42)
--- NOTE | 2019-01-13 21:48 | CR ---
INDICATION: Post intubation. TECHNIQUE: AP portable chest x-ray. COMPARISON: 11/06/2018. FINDINGS: Heart size is upper limits of normal. Mild thoracic curve. Lungs clear without infiltrate or consolidation. No endotracheal tube is identified on this study. Chest otherwise unremarkable. Dictated by Edi Betts MD @ Jan 13 2019 9:46PM Signed by Dr. Edi Betts @ Jan 13 2019 9:47PM
--- NOTE | 2019-01-13 21:55 | PCM.PREANE ---
Preanesthetic Assessment - Anesthesia/Transfusion/Family Hx Anesthesia History: No Prior Anesthesia Family History of Anesthesia Reaction: No Transfusion History: Unknown Intubation History: Unknown - Review of Systems General: No Symptoms Pulmonary: No Symptoms Cardiovascular: No Symptoms Gastrointestinal: No Symptoms Neurological: Seizure (status epilepricus) Other: Reports: None - Physical Assessment Vital Signs: Last Vital Signs Temp 36.4 C 01/13/19 19:27 Pulse 67 01/13/19 19:27 Resp 14 01/13/19 19:27 BP 113/82 01/13/19 19:27 Pulse Ox 100 01/13/19 19:27 Height: 4 ft 11 in Weight: 63.503 kg ASA Class: 2E Mental Status: Alert & Oriented x3 Airway Class: Mallampati = 1 Dentition: Reports: Normal Dentition Thyro-Mental Finger Breadths: 3 Mouth Opening Finger Breadths: 3 ROM/Head Extension: Full Lungs: Clear to Auscultation, Normal Respiratory Effort Cardiovascular: Regular Rate, Regular Rhythm - Lab Values: Laboratory Last Values WBC 8.14 K/uL (4.0-11.0) 01/13/19 18: RBC 4.45 M/uL (4.30-5.90) 01/13/19 18: Hgb 13.8 g/dL (12.0-16.0) 01/13/19 18: Hct 40.5 % (36.0-46.0) 01/13/19 18: MCV 91.0 fL (80.0-98.0) 01/13/19 18: MCH 31.0 pg (27.0-32.0) 01/13/19 18: MCHC 34.1 g/dL (31.0-37.0) 01/13/19 18: RDW Std Deviation 43.8 fl (28.0-62.0) 01/13/19 18: RDW Coeff of Sudheer 13 % (11.0-15.0) 01/13/19 18: Plt Count 291 K/uL (150-400) 01/13/19 18: MPV 10.10 fL (7.40-12.00) 01/13/19 18: Neut % (Auto) 60.6 % (48.0-80.0) 01/13/19 18:27 Lymph % (Auto) 32.9 % (16.0-40.0) 01/13/19 18: [place] % (Auto) 5.5 % (0.0-15.0) 01/13/19 18: Eos % (Auto) 0.9 % (0.0-7.0) 01/13/19 18: Baso % (Auto) 0.1 % (0.0-1.5) 01/13/19 18: Neut # (Auto) 4.9 K/uL (1.4-5.7) 01/13/19 18: Lymph # (Auto) 2.7 K/uL (0.6-2.4) H 01/13/19 18: [place] # (Auto) 0.5 K/uL (0.0-0.8) 01/13/19 18: Eos # (Auto) 0.1 K/uL (0.0-0.7) 01/13/19 18: Baso # (Auto) 0.0 K/uL (0.0-0.1) 01/13/19 18: Nucleated RBC % 0.0 /100WBC 01/13/19 18: Nucleated RBCs # 0 K/uL 01/13/19 18: Sodium 140 mmol/L (136-145) 01/13/19 18: Potassium 3.7 mmol/L (3.5-5.1) 01/13/19 18: Chloride 104 mmol/L (98-107) 01/13/19 18: Carbon Dioxide 29.6 mmol/L (21.0-32.0) 01/13/19 18: BUN 9 mg/dL (7.0-18.0) 01/13/19 18: Creatinine 0.6 mg/dL (0.6-1.0) 01/13/19 18: Est Cr Clr Drug Dosing 102.95 mL/min 01/13/19 18: Estimated GFR (MDRD) > 60.0 ml/min 01/13/19 18: Glucose 87 mg/dL (74-106) 01/13/19 18: Calcium 9.2 mg/dL (8.5-10.1) 01/13/19 18: Magnesium 1.9 mg/dL (1.8-2.4) 01/13/19 18:27 Total Bilirubin 0.5 mg/dL (0.2-1.0) 01/13/19 18:27 AST 26 IU/L (15-37) 01/13/19 18:27 ALT 44 IU/L (14-63) 01/13/19 18:27 Alkaline Phosphatase 63 U/L (46-116) 01/13/19 18:27 Total Protein 7.1 g/dL (6.4-8.2) 01/13/19 18:27 Albumin 3.7 g/dL (3.4-5.0) 01/13/19 18:27 Globulin 3.4 g/dL (2.6-4.0) 01/13/19 18: Albumin/Globulin Ratio 1.1 (0.9-1.6) 01/13/19 18:27 Urine Color YELLOW 01/13/19 19:28 Urine Appearance SLT CLOUDY 01/13/19 19:28 Urine pH 5.5 (5.0-8.0) 01/13/19 19:28 Ur Specific [place] >= 1.030 (1.001-1.035) 01/13/19 19:28 Urine Protein NEGATIVE mg/dL (NEGATIVE) 01/13/19 19:28 Urine Glucose (UA) NEGATIVE mg/dL (NEGATIVE) 01/13/19 19:28 Urine Ketones NEGATIVE mg/dL (NEGATIVE) 01/13/19 19:28 Urine Occult Blood TRACE-INTACT (NEGATIVE) H 01/13/19 19:28 Urine Nitrite NEGATIVE (NEGATIVE) 01/13/19 19:28 Urine Bilirubin NEGATIVE (NEGATIVE) 01/13/19 19:28 Urine Urobilinogen 0.2 EU/dL (<2.0) 01/13/19 19:28 Ur Leukocyte Esterase NEGATIVE (NEGATIVE) 01/13/19 19:28 Urine RBC 0-2 (0-2/HPF) 01/13/19 19:28 Urine WBC 0-2 (0-5/HPF) 01/13/19 19:28 Ur Epithelial Cells MANY (NONE-FEW) 01/13/19 19:28 Urine Bacteria RARE (NEGATIVE) 01/13/19 19:28 Urine Mucus LIGHT (NONE-MOD) 01/13/19 19:28 Urine HCG, Qual NEGATIVE (NEGATIVE) 01/13/19 19:28 Urine Opiates Screen NEGATIVE (NEGATIVE) 01/13/19 19:28 Ur Oxycodone Screen NEGATIVE (NEGATIVE) 01/13/19 19:28 Urine Methadone Screen NEGATIVE (NEGATIVE) 01/13/19 19:28 Ur Barbiturates Screen NEGATIVE (NEGATIVE) 01/13/19 19:28 Ur Phencyclidine Scrn NEGATIVE (NEGATIVE) 01/13/19 19:28 Ur Amphetamine Screen NEGATIVE (NEGATIVE) 01/13/19 19:28 U Methamphetamines Scrn NEGATIVE (NEGATIVE) 01/13/19 19:28 U Benzodiazepines Scrn NEGATIVE (NEGATIVE) 01/13/19 19:28 U Cocaine Metab Screen NEGATIVE (NEGATIVE) 01/13/19 19:28 U Marijuana (THC) Screen POSITIVE (NEGATIVE) 01/13/19 19:28 Ethyl Alcohol < 3.0 mg/dL 01/13/19 18:27 - Allergies Allergies/Adverse Reactions: Allergies Allergy/AdvReac Type Severity Reaction Status Date / Time No Known Allergies Allergy Verified 01/13/19 19:30 - Blood Blood Available: No - Anesthesia Plan Pre-Op Medication Ordered: None - Acknowledgements Anesthesia Type Planned: General Anesthesia Pt an Appropriate Candidate for the Planned Anesthesia: Yes Alternatives and Risks of Anesthesia Discussed w Pt/Guardian: Yes Pt/Guardian Understands and Agrees with Anesthesia Plan: Yes PreAnesthesia Questionnaire HEENT History: Reports: None Cardiovascular History: Reports: None Respiratory History: Reports: None Gastrointestinal History: Reports: None Genitourinary History: Reports: None 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 Musculoskeletal History: Reports: None Neurological History: Reports: Seizure Other Neuro History: patient in status epilepticus.states hasn't had a seizure in 3 months, not taking any oral medications for seizures, states she smokes marijuana to contol seizures Psychiatric History: Reports: None Endocrine/Metabolic History: Reports: None Hematologic History: Reports: None Immunologic History: Reports: None Oncologic (Cancer) History: Reports: Cervix Other Oncologic History: stage 2 cervical ca Dermatologic History: Reports: None - Infectious Disease History Infectious Disease History: Reports: None - Past Surgical History Head Surgeries/Procedures: Reports: None HEENT Surgical History: Reports: None Cardiovascular Surgical History: Reports: None Respiratory Surgical History: Reports: None GI Surgical History: Reports: None Female Surgical History: Reports: None Endocrine Surgical History: Reports: None Neurological Surgical History: Reports: None Musculoskeletal Surgical History: Reports: None Dermatological Surgical History: Reports: None - HOME MEDS Home Medications: Home Meds levETIRAcetam [Keppra] 750 mg PO BID 07/09/18 [History] - CURRENT (IN HOUSE) MEDS Current Meds: Current Medications Phenytoin Sodium 1,000 mg/ (Sodium Chloride) 270 mls @ 250 mls/hr IV ONETIME ONE Stop: 01/13/19 22:10 Last Admin: 01/13/19 21:33 Dose: 250 mls/hr Propofol (Diprivan 100 Ml) 100 mls @ 1.905 mls/hr IV TITRATE YARED; Protocol Last Admin: 01/13/19 21:26 Dose: 5 mcg/kg/min, 1.905 mls/hr Discontinued Medications Diazepam (Valium) 5 mg IVPUSH ONETIME ONE Stop: 01/13/19 19:29 Last Admin: 01/13/19 19:56 Dose: 5 mg Diazepam (Valium) 5 mg IVPUSH ONETIME ONE Stop: 01/13/19 19:44 Last Admin: 01/13/19 19:56 Dose: Not Given Diazepam (Valium) Confirm Administered Dose 5 mg .ROUTE .STK-MED ONE Stop: 01/13/19 19:55 Last Admin: 01/13/19 19:56 Dose: Not Given Sodium Chloride (Normal Saline) 1,000 mls @ 999 mls/hr IV STAT ONE Stop: 01/13/19 20:28 Last Admin: 01/13/19 19:55 Dose: 999 mls/hr Levetiracetam 1,500 mg/ (Dextrose/Water) 115 mls @ 460 mls/hr IV NOW STA Stop: 01/13/19 20:31 Last Admin: 01/13/19 20:39 Dose: 460 mls/hr Propofol (Diprivan 100 Ml) Confirm Administered Dose 100 mls @ as directed .ROUTE .STK-MED ONE Stop: 01/13/19 21:05 Ondansetron HCl (Zofran) 8 mg IVPUSH ONETIME ONE Stop: 01/13/19 20:54 Last Admin: 01/13/19 21:11 Dose: 8 mg Propofol (Diprivan 20 Ml) Confirm Administered Dose 200 mg .ROUTE .STK-MED ONE Stop: 01/13/19 20:53 Propofol (Diprivan 20 Ml) 200 mg IVPUSH ONETIME ONE Stop: 01/13/19 21:43 Last Admin: 01/13/19 21:44 Dose: 200 mg
--- NOTE | 2019-01-13 22:00 | PCM.SN ---
- Free Text/Narrative Note: Called to do emergency intubation on patient in status epilepticus. Patient adequately preoxygenated. Following medications given 10 mg zemuron, 130 mg propofol and 140 mf sux. Easy intubation using Cline strait blade #3. ET tube size 7. Taped at 21 cm - lips. Bilateral breast sonds. ET tube secured. Propofol at 5 cc per hour infusion started. Patient stable ready for transport to other medical facility.
--- NOTE | 2019-01-13 22:00 | PCM.POSTAN ---
POST ANESTHESIA ASSESSMENT - MENTAL STATUS Mental Status: Alert, Oriented - VITAL SIGNS Vital Signs: Last Vital Signs Temp 36.4 C 01/13/19 19:27 Pulse 67 01/13/19 19:27 Resp 14 01/13/19 19:27 BP 113/82 01/13/19 19:27 Pulse Ox 100 01/13/19 19:27 - RESPIRATORY Respiratory Status: Respiratory Rate WNL, Airway Patent, O2 Saturation Stable - CARDIOVASCULAR CV Status: Pulse Rate WNL, Blood Pressure Stable - GASTROINTESTINAL GI Status: No Symptoms - PAIN Pain Score: 0 - POST OP HYDRATION Hydration Status: Adequate & Stable - OBSERVATIONS Free Text/Narrative:: patient in stable condition
--- NOTE | 2019-01-13 22:02 | PCM48HPAN ---
Post Anesthesia Note - EVALUATION WITHIN 48HRS OF ANESTHETIC Vital Signs in Normal Range: Yes Patient Participated in Evaluation: Yes Respiratory Function Stable: Yes Airway Patent: Yes Cardiovascular Function Stable: Yes Hydration Status Stable: Yes Pain Control Satisfactory: Yes Nausea and Vomiting Control Satisfactory: Yes Mental Status Recovered: No (patient on propofol drip, asleep- intubated, hemodynamicaly stable) Vital Signs: Last Vital Signs Temp 36.4 C 01/13/19 19:27 Pulse 67 01/13/19 19:27 Resp 14 01/13/19 19:27 BP 113/82 01/13/19 19:27 Pulse Ox 100 01/13/19 19:27 - COMMENTS/OBSERVATIONS Free Text/Narrative:: No anesthesia issues
[2019-01-14] MEDS ORDERED: Sodium Chloride 0.9% 1,000 ML IV SCH (05:00)
== END 2019-01-13 22:04 ==
LOC: MW.ED 19:26
DX: G40.901 Epilepsy, unspecified, not intractable, with status epilepticus (principal); Z79.899 Other long term (current) drug therapy
CPT/HCPCS: 31500; 36415; 71045; 80053; 80305; 80320; 81001; 81025; 82962; 83735; 85025; 93005; 96361; 96365; 96367; 96375; 99291; 99292; J0330; J1165; J1953; J2405; J2704; J3360; J7040; J7050; J7060; G0480

== ENCOUNTER 2019-03-12 17:36 | Emergency (ER) | payer MEDICAID, OTHER ==
[2019-03-12] MEDS ORDERED: Sodium Chloride 0.9% 1,000 ML IV ONE (17:50)
[2019-03-12] MEDS ORDERED: Ketorolac 30 MG/ML SDV IVPUSH ONE (17:57)
--- NOTE | 2019-03-12 18:09 | EDM.PDOC ---
ED HPI GENERAL MEDICAL PROBLEM - General Chief Complaint: Chest Pain Stated Complaint: MIRANDA Time Seen by Provider: 03/12/19 17:50 Source of Information: Reports: Patient History Limitations: Reports: No Limitations - History of Present Illness INITIAL COMMENTS - FREE TEXT/NARRATIVE: HISTORY AND PHYSICAL: History of present illness: Patient is a 23-year-old female who presents to the emergency room via EMS with complaints of chest pain and the sensation of having a seizure. Patient has a history of seizures and had previously been seen in our emergency room for these. She states she had been transferred out of our emergency room last month due to complications from her seizure and has recently had her medications adjusted. She does see Dr. Mesa who has been decreasing her Keppra as she feels it has been causing depression. Next appointment with [facility] is Apr 22, 2019. Today she noticed some midsternal chest pain that was painful with palpation. This evening she had the sensation of going to have a seizure which she states she was able to control. She felt some shaking to her right hand and foot but was able to "calm myself down" and the symptoms resolved. She was concerned that she may have seizure which was alarming to her due to the recent complication, she wanted to be evaluated. Patient continues to have the midsternal chest pain although she states that it has improved. Patient denies any fever, chills, headache, change in vision, syncope or near syncope. Denies any back pain, shortness of breath or cough. Denies any abdominal pain, nausea, vomiting, diarrhea, constipation or dysuria. Has not noted any blood in urine or stool. Patient has been eating and drinking appropriately. Patient reports there is a chance of as her and her significant other are currently trying. Review of systems: As per history of present illness and below otherwise all systems reviewed and negative. Past medical history: As per history of present illness and as reviewed below otherwise noncontributory. Surgical history: As per history of present illness and as reviewed below otherwise noncontributory. Social history: See social history for further information Family history: As per history of present illness and as reviewed below otherwise noncontributory. Physical exam: General: Well-developed and well-nourished 23-year-old female. Alert and oriented. Nontoxic appearing and in no acute distress. Vital signs are stable and have been reviewed by me. HEENT: Atraumatic, normocephalic, pupils equal and reactive bilaterally, negative for conjunctival pallor or scleral icterus, mucous membranes moist, trachea midline. No drooling or trismus noted. No meningeal signs. No hot potato voice noted. Lungs: Clear to auscultation, breath sounds equal bilaterally, chest tender with palpation to the mid sternum Heart: S1S2, regular rate and rhythm without overt murmur Abdomen: Soft, nondistended, nontender. Negative for masses or hepatosplenomegaly. Negative for costovertebral tenderness. Pelvis: Stable nontender. Skin: Intact, warm, dry. No lesions or rashes noted. Extremities: Atraumatic, moves all extremities per self without difficulty or deficits, negative for cords or calf pain. Neurovascular unremarkable. Neuro: Awake, alert, oriented. Cranial nerves II through XII unremarkable. Cerebellum unremarkable. Motor and sensory unremarkable throughout. Exam nonfocal. Notes: EKG shows sinus rhythm with a rate of 64. Lab work is unremarkable. Chest x-ray shows no acute findings. All diagnostics were shared with the patient. Vital signs remain stable. Supportive care measures were reviewed and discussed. Voices understanding and is agreeable to plan of care. Denies any further questions or concerns at this time. Diagnostics: CBC, CMP, EKG, Keppra, CXR Therapeutics: IV fluids, Toradol Prescription: None Impression: Chest pain, nonspecific History of Seizures Plan: 1. Continue taking your seizure medications as prescribed. Keep in contact with Dr Shelby about your symptoms. 2. Tylenol and/or ibuprofen as needed for pain management. 3. Follow up as we discussed with Dr. Mesa and/or your primary care provider. Return to the ED as needed and as discussed. Definitive disposition and diagnosis as appropriate pending reevaluation and review of above. 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 Musculoskeletal History: Reports: None Neurological History: Reports: Seizure Other Neuro History: patient in status epilepticus.states hasn't had a seizure in 3 months, not taking any oral medications for seizures, states she smokes marijuana to contol seizures Psychiatric History: Reports: None Endocrine/Metabolic History: Reports: None Hematologic History: Reports: None Immunologic History: Reports: None Oncologic (Cancer) History: Reports: Cervix Other Oncologic History: stage 2 cervical ca Dermatologic History: Reports: None - Infectious Disease History Infectious Disease History: Reports: None - Past Surgical History Head Surgeries/Procedures: Reports: None HEENT Surgical History: Reports: None Cardiovascular Surgical History: Reports: None Respiratory Surgical History: Reports: None GI Surgical History: Reports: None Female Surgical History: Reports: None Endocrine Surgical History: Reports: None Neurological Surgical History: Reports: None Musculoskeletal Surgical History: Reports: None Dermatological Surgical History: Reports: None Social & Family History - Family History Family Medical History: Noncontributory Endocrine/Metabolic: Reports: Diabetes, Type I Oncologic: Reports: Other (See Below) Other Oncologic Family History: Cancer - Tobacco Use Smoking Status *Q: Never Smoker - Caffeine Use Caffeine Use: Reports: None - Recreational Drug Use Recreational Drug Use: Yes Drug Use in Last 12 Months: Yes Recreational Drug Type: Reports: Marijuana/Hashish Recreational Drug Use Frequency: Daily ED ROS GENERAL - Review of Systems Review Of Systems: ROS reveals no pertinent complaints other than HPI. ED EXAM, GENERAL - Physical Exam Exam: See Below (See dictation) Course - Vital Signs Last Recorded V/S: Last Vital Signs Temp 97.7 F 03/12/19 17:39 Pulse 68 03/12/19 18:30 Resp 16 03/12/19 18:30 BP 107/59 L 03/12/19 18:30 Pulse Ox 100 03/12/19 18:30 - Orders/Labs/Meds Orders: Active Orders 24 hr Category Date Time Status EKG 12 Lead [EKG Documentation Completion] [RC] STAT Care 03/12/19 18:35 Active LEVETIRACETAM, S [REF] Stat Lab 03/12/19 18:00 Received Labs: Laboratory Tests 03/12/19 03/12/19 03/12/19 Range/Units 18:00 18:00 18:00 WBC 11.57 H (4.0-11.0) K/uL RBC 4.42 (4.30-5.90) M/uL Hgb 13.6 (12.0-16.0) g/dL Hct 39.7 (36.0-46.0) % MCV 89.8 (80.0-98.0) fL MCH 30.8 (27.0-32.0) pg MCHC 34.3 (31.0-37.0) g/dL RDW Std Deviation 44.6 (28.0-62.0) fl RDW Coeff of Sudheer 14 (11.0-15.0) % Plt Count 328 (150-400) K/uL MPV 9.70 (7.40-12.00) fL Neut % (Auto) 72.4 (48.0-80.0) % Lymph % (Auto) 20.9 (16.0-40.0) % [place] % (Auto) 6.1 (0.0-15.0) % Eos % (Auto) 0.5 (0.0-7.0) % Baso % (Auto) 0.1 (0.0-1.5) % Neut # (Auto) 8.4 H (1.4-5.7) K/uL Lymph # (Auto) 2.4 (0.6-2.4) K/uL [place] # (Auto) 0.7 (0.0-0.8) K/uL Eos # (Auto) 0.1 (0.0-0.7) K/uL Baso # (Auto) 0.0 (0.0-0.1) K/uL Nucleated RBC % 0.0 /100WBC Nucleated RBCs # 0 K/uL Sodium 139 (136-145) mmol/L Potassium 3.5 (3.5-5.1) mmol/L Chloride 105 (98-107) mmol/L Carbon Dioxide 26.4 (21.0-32.0) mmol/L BUN 12 (7.0-18.0) mg/dL Creatinine 0.7 (0.6-1.0) mg/dL Est Cr Clr Drug Dosing 88.25 mL/min Estimated GFR (MDRD) > 60.0 ml/min Glucose 82 (74-106) mg/dL Calcium 8.6 (8.5-10.1) mg/dL Total Bilirubin 0.3 (0.2-1.0) mg/dL AST 17 (15-37) IU/L ALT 29 (14-63) IU/L Alkaline Phosphatase 90 (46-116) U/L Total Protein 7.5 (6.4-8.2) g/dL Albumin 3.8 (3.4-5.0) g/dL Globulin 3.7 (2.6-4.0) g/dL Albumin/Globulin Ratio 1.0 (0.9-1.6) Urine Color YELLOW Urine Appearance CLEAR Urine pH 8.5 H (5.0-8.0) Ur Specific [place] 1.010 (1.001-1.035) Urine Protein NEGATIVE (NEGATIVE) mg/dL Urine Glucose (UA) NEGATIVE (NEGATIVE) mg/dL Urine Ketones NEGATIVE (NEGATIVE) mg/dL Urine Occult Blood NEGATIVE (NEGATIVE) Urine Nitrite NEGATIVE (NEGATIVE) Urine Bilirubin NEGATIVE (NEGATIVE) Urine Urobilinogen 0.2 (<2.0) EU/dL Ur Leukocyte Esterase NEGATIVE (NEGATIVE) Urine HCG, Qual (NEGATIVE) 03/12/19 Range/Units 18:00 WBC (4.0-11.0) K/uL RBC (4.30-5.90) M/uL Hgb (12.0-16.0) g/dL Hct (36.0-46.0) % MCV (80.0-98.0) fL MCH (27.0-32.0) pg MCHC (31.0-37.0) g/dL RDW Std Deviation (28.0-62.0) fl RDW Coeff of Sudheer (11.0-15.0) % Plt Count (150-400) K/uL MPV (7.40-12.00) fL Neut % (Auto) (48.0-80.0) % Lymph % (Auto) (16.0-40.0) % [place] % (Auto) (0.0-15.0) % Eos % (Auto) (0.0-7.0) % Baso % (Auto) (0.0-1.5) % Neut # (Auto) (1.4-5.7) K/uL Lymph # (Auto) (0.6-2.4) K/uL [place] # (Auto) (0.0-0.8) K/uL Eos # (Auto) (0.0-0.7) K/uL Baso # (Auto) (0.0-0.1) K/uL Nucleated RBC % /100WBC Nucleated RBCs # K/uL Sodium (136-145) mmol/L Potassium (3.5-5.1) mmol/L Chloride (98-107) mmol/L Carbon Dioxide (21.0-32.0) mmol/L BUN (7.0-18.0) mg/dL Creatinine (0.6-1.0) mg/dL Est Cr Clr Drug Dosing mL/min Estimated GFR (MDRD) ml/min Glucose (74-106) mg/dL Calcium (8.5-10.1) mg/dL Total Bilirubin (0.2-1.0) mg/dL AST (15-37) IU/L ALT (14-63) IU/L Alkaline Phosphatase (46-116) U/L Total Protein (6.4-8.2) g/dL Albumin (3.4-5.0) g/dL Globulin (2.6-4.0) g/dL Albumin/Globulin Ratio (0.9-1.6) Urine Color Urine Appearance Urine pH (5.0-8.0) Ur Specific [place] (1.001-1.035) Urine Protein (NEGATIVE) mg/dL Urine Glucose (UA) (NEGATIVE) mg/dL Urine Ketones (NEGATIVE) mg/dL Urine Occult Blood (NEGATIVE) Urine Nitrite (NEGATIVE) Urine Bilirubin (NEGATIVE) Urine Urobilinogen (<2.0) EU/dL Ur Leukocyte Esterase (NEGATIVE) Urine HCG, Qual NEGATIVE (NEGATIVE) Meds: Medications Discontinued Medications Generic Name Dose Route Start Last Admin Trade Name Freq PRN Reason Stop Dose Admin Sodium Chloride 1,000 mls @ 999 mls/hr 03/12/19 17:50 03/12/19 17:54 Normal Saline IV 03/12/19 18:50 999 mls/hr STAT ONE Administration Ketorolac Tromethamine 30 mg 03/12/19 17:57 03/12/19 18:53 Toradol IVPUSH 03/12/19 17:58 30 mg ONETIME ONE Administration Departure - Departure Time of Disposition: 19:23 Disposition: Home, Self-Care 01 Clinical Impression: Nonspecific chest pain, History of seizure disorder Instructions: Nonspecific Chest Pain, [id number] Forms: ED Department Discharge Care Plan Goals: The following information is given to patients seen in the emergency department who are being discharged to home. This information is to outline your options for follow-up care. We provide all patients seen in our emergency department with a follow-up referral. The need for follow-up, as well as the timing and circumstances, are variable depending upon the specifics of your emergency department visit. If you don't have a primary care physician on staff, we will provide you with a referral. We always advise you to contact your personal physician following an emergency department visit to inform them of the circumstance of the visit and for follow-up with them and/or the need for any referrals to a consulting specialist. The emergency department will also refer you to a specialist when appropriate. This referral assures that you have the opportunity for follow-up care with a specialist. All of these measure are taken in an effort to provide you with optimal care, which includes your follow-up. Under all circumstances we always encourage you to contact your private physician who remains a resource for coordinating your care. When calling for follow-up care, please make the office aware that this follow-up is from your recent emergency room visit. If for any reason you are refused follow-up, please contact the [facility] Emergency Department at and asked to speak to the emergency department charge nurse. [facility] [address] [place] [id number] [id number] 1. Continue taking your seizure medications as prescribed. Keep in contact with Dr Shelby about your symptoms. 2. Tylenol and/or ibuprofen as needed for pain management. 3. Follow up as we discussed with Dr. Mesa and/or your primary care provider. Return to the ED as needed and as discussed. - My Orders Last 24 Hours: My Active Orders 03/12/19 18:00 LEVETIRACETAM, S [REF] Stat 03/12/19 18:35 EKG 12 Lead [EKG Documentation Completion] [RC] STAT - Assessment/Plan Last 24 Hours: My Active Orders 03/12/19 18:00 LEVETIRACETAM, S [REF] Stat 03/12/19 18:35 EKG 12 Lead [EKG Documentation Completion] [RC] STAT
[2019-03-12 18:28] LABS: BLOOD UREA NITROGEN,BUN 12 mg/dL (7.0-18.0); CARBON DIOXIDE,CO2 26.4 mmol/L (21.0-32.0); CHLORIDE,CL 105 mmol/L (98-107); GLUCOSE RANDOM 82 mg/dL (74-106); POTASSIUM,K 3.5 mmol/L (3.5-5.1); SODIUM,NA 139 mmol/L (136-145)
--- NOTE | 2019-03-12 19:16 | CR ---
Indication: Pain. Shortness of breath. Seizures. Technique: PA and lateral views the chest were obtained. Comparison: None Findings: The heart is normal in size. The lungs are clear. No infiltrate, pleural effusion, or pneumothorax is identified. Impression: No acute cardiopulmonary process. Dictated by Teresa Chin MD @ Mar 12 2019 7:08PM Signed by Dr. Teresa Chin @ Mar 12 2019 7:13PM
== END 2019-03-12 19:37 | disposition home or self-care (01) ==
LOC: MW.ED 17:36
DX: R07.2 Precordial pain (principal); G40.909 Epilepsy, unspecified, not intractable, without status epilepticus; Z79.899 Other long term (current) drug therapy
CPT/HCPCS: 36415; 71046; 80053; 80177; 81003; 81025; 85025; 93005; 96361; 96374; 99285; J1885; J7040; 99283

== ENCOUNTER 2019-05-01 22:11 | Emergency (ER) | payer MEDICAID ==
[2019-05-01] MEDS ORDERED: Ondansetron 4 MG/2 ML SDV ONE (22:25)
[2019-05-01] MEDS ORDERED: Sodium Chloride 0.9% 1,000 ML IV ONE ×2 (22:26→23:19)
[2019-05-01] MEDS ORDERED: Ondansetron 4 MG/2 ML SDV IVPUSH ONE (22:26)
[2019-05-01] MEDS ORDERED: Famotidine 20 MG/2 ML SDV IVPUSH ONE (22:42)
[2019-05-01 22:53] LABS: BLOOD UREA NITROGEN,BUN 11 mg/dL (7.0-18.0); CARBON DIOXIDE,CO2 23.5 mmol/L (21.0-32.0); CHLORIDE,CL 100 mmol/L (98-107); GLUCOSE RANDOM 85 mg/dL (74-106); POTASSIUM,K 3.4 mmol/L (3.5-5.1); SODIUM,NA 138 mmol/L (136-145)
--- NOTE | 2019-05-01 22:57 | EDM.PDOC ---
ED HPI GENERAL MEDICAL PROBLEM - General Chief Complaint: Gastrointestinal Problem Stated Complaint: PT VOMITING Time Seen by Provider: 05/01/19 22:28 - History of Present Illness INITIAL COMMENTS - FREE TEXT/NARRATIVE: HISTORY AND PHYSICAL: History of present illness: Patient is a 23-year-old 2 para 1 who follows at [facility] with [facility]. Cordero and has a documented intrauterine in the office with an EDC of December 08 which puts her at 8 weeks 5 days and who presents with intractable vomiting that has been going on since Monday, approximately 3 days. The patient had an episode of hyperemesis earlier in the and was given Zofran which did work and she also was diagnosed with a UTI and treated finishing her treatment about a week and 1/2 to 2 weeks ago. She currently says she has no fever or upper respiratory symptoms and no diarrhea and is in fact constipated. She says she has no urinary complaints no vaginal bleeding and no abdominal pain or flank pain. The patient has only had the vomiting and here in the ED she did vomit approximately 300 cc of fluid which was bilious in color and not black or bloody. The patient says she is thirsty and she is not able to keep anything down and she did not contact the clinic about these concerns. It seemed to get worse this evening and she is here for treatment The patient says that child tested positive for influenza Review of systems: As per history of present illness and below otherwise all systems reviewed and negative. Past medical history: As per history of present illness and as reviewed below otherwise noncontributory. Surgical history: As per history of present illness and as reviewed below otherwise noncontributory. Social history: No reported history of drug or alcohol abuse. Family history: As per history of present illness and as reviewed below otherwise noncontributory. Physical exam: General: Well-developed well-nourished female who is nontoxic and vital signs are noted by me HEENT: Atraumatic, normocephalic, pupils reactive, negative for conjunctival pallor or scleral icterus, mucous membranes tacky, throat clear, neck supple, nontender, trachea midline. Lungs: Clear to auscultation, breath sounds equal bilaterally, chest nontender. Heart: S1S2, regular, and rhythm no overt murmurs Abdomen: Soft, nondistended, nontender. Negative for masses or hepatosplenomegaly. Negative for costovertebral tenderness. Pelvis: Stable nontender. Genitourinary: Deferred. Rectal: Deferred. Extremities: Full range of motion without defects or deficits and there is no edema. Negative for cords or calf pain. Neurovascular unremarkable. Neuro: Awake, alert, oriented. Cranial nerves II through XII unremarkable. Cerebellum unremarkable. Motor and sensory unremarkable throughout. Exam nonfocal. Diagnostics: BC CMP UA with micro influenza urine culture Therapeutics: IV fluids Zofran Pepcid Rocephin The patient has received about 800 cc of fluid and saying that she does feel better and no longer has nausea. She is asking for ice chips and I will continue to monitor her status and her work-up. She has taken ice chips here and is feeling much improved. She has finished her second liter of fluid and I will discuss her case with Dr. Siddiqui who is on- call for [facility] for follow-up care. The patient does not want sublingual Zofran for home as she says it makes her throw up due to the taste and she would like pills instead. We will also give her Keflex for her UTI 0006: As discussed with Dr. Siddiqui who will relay the information to Dr Cordero. She agrees with Keflex for home and Zofran. Impression: hyperEmesis gravidarum, UTI stated as recurrent per patient Definitive disposition and diagnosis as appropriate pending reevaluation and review of above. - Related Data Allergies Allergy/AdvReac Type Severity Reaction Status Date / Time No Known Allergies Allergy Verified 05/01/19 22:17 Home Meds: Home Meds levETIRAcetam [Keppra] 500 mg PO ASDIRECTED 07/09/18 [History] No122/Iron/Folic Acid [ Multi Tablet] 1 each PO DAILY 05/01/19 [History] Past Medical History HEENT History: Reports: None Cardiovascular History: Reports: None Respiratory History: Reports: None Gastrointestinal History: Reports: None Genitourinary History: Reports: None PHY THERAPIST History: Reports: Musculoskeletal History: Reports: None Neurological History: Reports: Seizure Other Neuro History: patient in status epilepticus.states hasn't had a seizure in 3 months, not taking any oral medications for seizures, states she smokes marijuana to contol seizures Psychiatric History: Reports: None Endocrine/Metabolic History: Reports: None Insulin Pump Model and Dock Builder: None Hematologic History: Reports: None Immunologic History: Reports: None Oncologic (Cancer) History: Reports: Cervix Other Oncologic History: stage 2 cervical ca Dermatologic History: Reports: None - Infectious Disease History Infectious Disease History: Reports: None - Past Surgical History Head Surgeries/Procedures: Reports: None HEENT Surgical History: Reports: None Cardiovascular Surgical History: Reports: None Respiratory Surgical History: Reports: None GI Surgical History: Reports: None Female Surgical History: Reports: None Endocrine Surgical History: Reports: None Neurological Surgical History: Reports: None Musculoskeletal Surgical History: Reports: None Dermatological Surgical History: Reports: None Social & Family History - Family History Family Medical History: Noncontributory Endocrine/Metabolic: Reports: Diabetes, Type I Oncologic: Reports: Other (See Below) Other Oncologic Family History: Cancer - Tobacco Use Smoking Status *Q: Never Smoker - Caffeine Use Caffeine Use: Reports: None - Recreational Drug Use Recreational Drug Use: No ED ROS GENERAL - Review of Systems Review Of Systems: Comprehensive ROS is negative, except as noted in HPI. ED EXAM, GENERAL - Physical Exam Exam: See Below (see dictation) Course - Vital Signs Last Recorded V/S: Last Vital Signs Temp 36.1 C 05/01/19 22:15 Pulse 93 05/01/19 22:15 Resp 18 05/01/19 22:15 BP 101/62 05/01/19 22:15 Pulse Ox 98 05/01/19 22:15 - Orders/Labs/Meds Orders: Active Orders 24 hr Category Date Time Status CULTURE URINE [RM] Stat Lab 05/01/19 22:22 Received Sodium Chloride 0.9% [Normal Saline] 1,000 ml Med 05/01/19 23:19 Active IV STAT Medication Orders Sodium Chloride (Normal Saline) 1,000 mls @ 999 mls/hr IV STAT ONE Stop: 05/02/19 00:19 Last Admin: 05/01/19 23:32 Dose: 999 mls/hr Labs: Laboratory Tests 05/01/19 05/01/19 05/01/19 Range/Units 22:20 22:20 22:22 WBC 13.52 H (4.0-11.0) K/uL RBC 4.97 (4.30-5.90) M/uL Hgb 15.4 (12.0-16.0) g/dL Hct 43.8 (36.0-46.0) % MCV 88.1 (80.0-98.0) fL MCH 31.0 (27.0-32.0) pg MCHC 35.2 (31.0-37.0) g/dL RDW Std Deviation 42.5 (28.0-62.0) fl RDW Coeff of Sudheer 13 (11.0-15.0) % Plt Count 315 (150-400) K/uL MPV 9.90 (7.40-12.00) fL Neut % (Auto) 72.1 (48.0-80.0) % Lymph % (Auto) 20.8 (16.0-40.0) % [place] % (Auto) 6.9 (0.0-15.0) % Eos % (Auto) 0.1 (0.0-7.0) % Baso % (Auto) 0.1 (0.0-1.5) % Neut # (Auto) 9.8 H (1.4-5.7) K/uL Lymph # (Auto) 2.8 H (0.6-2.4) K/uL [place] # (Auto) 0.9 H (0.0-0.8) K/uL Eos # (Auto) 0.0 (0.0-0.7) K/uL Baso # (Auto) 0.0 (0.0-0.1) K/uL Nucleated RBC % 0.0 /100WBC Nucleated RBCs # 0 K/uL Sodium 138 (136-145) mmol/L Potassium 3.4 L (3.5-5.1) mmol/L Chloride 100 (98-107) mmol/L Carbon Dioxide 23.5 (21.0-32.0) mmol/L BUN 11 (7.0-18.0) mg/dL Creatinine 0.6 (0.6-1.0) mg/dL Est Cr Clr Drug Dosing TNP Estimated GFR (MDRD) > 60.0 ml/min Glucose 85 (74-106) mg/dL Calcium 9.6 (8.5-10.1) mg/dL Total Bilirubin 0.5 (0.2-1.0) mg/dL AST 17 (15-37) IU/L ALT 26 (14-63) IU/L Alkaline Phosphatase 76 (46-116) U/L Total Protein 8.7 H (6.4-8.2) g/dL Albumin 4.3 (3.4-5.0) g/dL Globulin 4.4 H (2.6-4.0) g/dL Albumin/Globulin Ratio 1.0 (0.9-1.6) Urine Color YELLOW Urine Appearance CLEAR Urine pH 6.0 (5.0-8.0) Ur Specific [place] >= 1.030 (1.001-1.035) Urine Protein NEGATIVE (NEGATIVE) mg/dL Urine Glucose (UA) NEGATIVE (NEGATIVE) mg/dL Urine Ketones >=80 (NEGATIVE) mg/dL Urine Occult Blood SMALL H (NEGATIVE) Urine Nitrite NEGATIVE (NEGATIVE) Urine Bilirubin SMALL H (NEGATIVE) Urine Ictotest NEGATIVE Urine Urobilinogen 0.2 (<2.0) EU/dL Ur Leukocyte Esterase TRACE H (NEGATIVE) Urine RBC 1-2 (0-2/HPF) Urine WBC 1-2 (0-5/HPF) Ur Epithelial Cells OCCASIONAL (NONE-FEW) Urine Bacteria 1+ H (NEGATIVE) Meds: Medications Generic Name Dose Route Start Last Admin Trade Name Freq PRN Reason Stop Dose Admin Sodium Chloride 1,000 mls @ 999 mls/hr 05/01/19 23:19 05/01/19 23:32 Normal Saline IV 05/02/19 00:19 999 mls/hr STAT ONE Administration Discontinued Medications Generic Name Dose Route Start Last Admin Trade Name Freq PRN Reason Stop Dose Admin Famotidine 20 mg 05/01/19 22:42 05/01/19 22:57 Pepcid IVPUSH 05/01/19 22:43 20 mg ONETIME ONE Administration Sodium Chloride 1,000 mls @ 999 mls/hr 05/01/19 22:26 05/01/19 22:33 Normal Saline IV 05/01/19 23:26 999 mls/hr .Bolus ONE Administration Ceftriaxone Sodium/Dextrose 1 50 mls @ 100 mls/hr 05/01/19 23:19 05/01/19 23: 30 gm/ Premix IV 05/01/19 23:48 100 mls/hr ONETIME ONE Administration Ondansetron HCl 4 mg 05/01/19 22:26 05/01/19 22:33 Zofran IVPUSH 05/01/19 22:27 4 mg ONETIME ONE Administration Ondansetron HCl Confirm 05/01/19 22:25 05/01/19 22:35 Zofran Administered 05/01/19 22:26 Not Given Dose 4 mg .ROUTE .STK-MED ONE Departure - Departure Time of Disposition: 00:09 Disposition: Home, Self-Care 01 Condition: Good Clinical Impression: Hyperemesis gravidarum - Discharge Information Referrals: PCP,None [Primary Care Provider] - Forms: ED Department Discharge Additional Instructions: The following information is given to patients seen in the emergency department who are being discharged to home. This information is to outline your options for follow-up care. We provide all patients seen in our emergency department with a follow-up referral. The need for follow-up, as well as the timing and circumstances, are variable depending upon the specifics of your emergency department visit. If you don't have a primary care physician on staff, we will provide you with a referral. We always advise you to contact your personal physician following an emergency department visit to inform them of the circumstance of the visit and for follow-up with them and/or the need for any referrals to a consulting specialist. The emergency department will also refer you to a specialist when appropriate. This referral assures that you have the opportunity for followup care with a specialist. All of these measure are taken in an effort to provide you with optimal care, which includes your followup. Under all circumstances we always encourage you to contact your private physician who remains a resource for coordinating your care. When calling for followup care, please make the office aware that this follow-up is from your recent emergency room visit. If for any reason you are refused follow-up, please contact the [facility] emergency department at and ask to speak to the emergency department charge nurse. [address] [address] Please call the clinic in the morning and let them know how you are doing and use medications as prescribed to you, Zofran and Keflex. Eat ice chips and take small sips of clear fluids and bites of bland food. Return to ER as needed and as discussed. Please schedule a follow-up appointment with your provider in the clinic. Sepsis Event Note - Evaluation Sepsis Screening Result: No Definite Risk - Focused Exam Vital Signs: Vital Signs Temp Pulse Resp BP Pulse Ox 05/01/19 22:15 36.1 C 93 18 101/62 98 Date Exam was Performed: 05/02/19 Time Exam was Performed: 00:09 - My Orders Last 24 Hours: My Active Orders 05/01/19 22:22 CULTURE URINE [RM] Stat 05/01/19 23:19 Sodium Chloride 0.9% [Normal Saline] 1,000 ml IV STAT - Assessment/Plan Last 24 Hours: My Active Orders 05/01/19 22:22 CULTURE URINE [RM] Stat 05/01/19 23:19 Sodium Chloride 0.9% [Normal Saline] 1,000 ml IV STAT
[2019-05-01] MEDS ORDERED: cefTRIAXone 1 GM in Premix Bag 1 BAG IV ONE (23:19)
[2019-05-02] MEDS ORDERED: Ondansetron 4 MG/2 ML SDV IVPUSH ONE (00:09)
== END 2019-05-02 00:25 | disposition home or self-care (01) ==
LOC: MW.ED 22:11
DX: O21.0 Mild hyperemesis gravidarum (principal); Z3A.08 8 weeks gestation of pregnancy; Z79.899 Other long term (current) drug therapy
CPT/HCPCS: 36415; 80053; 81001; 85025; 87086; 87804; 96361; 96365; 96375; 96376; 99284; J0696; J2405; J7030; S0028; J3490

== ENCOUNTER 2019-12-03 19:25 | Inpatient (IN) | payer MEDICAID, OTHER ==
[2019-12-03] MEDS ORDERED: Sodium Chloride 0.9% 10 ML SDV IV PRN (19:41)
[2019-12-03] MEDS ORDERED: Ondansetron 4 MG/2 ML SDV IVPUSH PRN (19:41)
[2019-12-03] MEDS ORDERED: Terbutaline 1 MG/ML SDV SUBCUT PRN (19:41)
[2019-12-03] MEDS ORDERED: Methylergonovine 0.2 MG/1 ML Amp IM PRN (19:41)
[2019-12-03] MEDS ORDERED: Butorphanol 1 MG/ML SDV IVPUSH PRN (19:41)
[2019-12-03] MEDS ORDERED: Tranexamic Acid 1,000 MG in Sodium Chloride 0.9% 100 ML IV PRN (19:41)
[2019-12-03] MEDS ORDERED: Nalbuphine 10 MG/1 ML Vial IVPUSH PRN (19:41)
[2019-12-03] MEDS ORDERED: Carboprost Tromethamine 250 MCG/1 ML Amp IM PRN (19:41)
[2019-12-03] MEDS ORDERED: Sodium Chloride 0.9% 2.5 ML Syringe FLUSH PRN (19:41)
[2019-12-03] MEDS ORDERED: Misoprostol 200 MCG Tab PO PRN (19:41)
[2019-12-03] MEDS ORDERED: Lidocaine 1% 50 ML MDV INJECT PRN (19:41)
[2019-12-03] MEDS ORDERED: Water For Irrigation,Sterile 1,000 ML Container IRR PRN (19:41)
[2019-12-03] MEDS ORDERED: Sodium Chloride 0.9% 10 ML Syringe FLUSH PRN (19:41)
[2019-12-03] MEDS ORDERED: Oxytocin/0.9 % Sodium Chloride 30 UNIT/500 ML BAG IV SCH ×2 (19:45)
[2019-12-03] MEDS: Lactated Ringers 1,000 ML IV SCH (19:55)
[2019-12-03] MEDS ORDERED: Ampicillin 2 GM in Sodium Chloride 0.9% 100 ML IV ONE (20:30)
[2019-12-03] MEDS ORDERED: Misoprostol 25 MCG (1/4 of 100 MCG) Tab VAG PRN (20:30)
[2019-12-04] MEDS: Misoprostol 25 MCG (1/4 of 100 MCG) Tab VAG PRN ×2 (00:07→04:14)
[2019-12-04] MEDS: Ampicillin 1 GM in Sodium Chloride 0.9% 50 ML IV SCH ×5 (00:11→16:14)
[2019-12-04] MEDS ORDERED: Ropivacaine HCl/PF 100 ML ONE (11:13)
[2019-12-04] MEDS ORDERED: fentaNYL 100 MCG/2 ML SDV ONE (11:13)
[2019-12-04] MEDS: Lactated Ringers 1,000 ML IV SCH ×3 (11:19→14:06)
--- NOTE | 2019-12-04 12:20 | PCM.PREANE ---
Preanesthetic Assessment - Anesthesia/Transfusion/Family Hx Anesthesia History: Prior Anesthesia Without Reaction Family History of Anesthesia Reaction: No Transfusion History: No Prior Transfusion(s) Intubation History: Unknown - Review of Systems General: No Symptoms Pulmonary: No Symptoms Cardiovascular: No Symptoms Gastrointestinal: No Symptoms Neurological: No Symptoms - Physical Assessment NPO Status Date: 12/04/19 NPO Status Time: 07:00 Height: 1.75 m Weight: 73.482 kg ASA Class: 1 - Lab Values: Laboratory Last Values WBC 7.28 K/uL (4.0-11.0) 12/03/19 19:52 RBC 3.92 M/uL (4.30-5.90) L 12/03/19 19:52 Hgb 11.9 g/dL (12.0-16.0) L 12/03/19 19:52 Hct 35.8 % (36.0-46.0) L 12/03/19 19:52 MCV 91.3 fL (80.0-98.0) 12/03/19 19:52 MCH 30.4 pg (27.0-32.0) 12/03/19 19:52 MCHC 33.2 g/dL (31.0-37.0) 12/03/19 19:52 RDW Std Deviation 47.8 fl (28.0-62.0) 12/03/19 19:52 RDW Coeff of Sudheer 14 % (11.0-15.0) 12/03/19 19:52 Plt Count 212 K/uL (150-400) 12/03/19 19:52 MPV 10.80 fL (7.40-12.00) 12/03/19 19:52 Nucleated RBC % 0.0 /100WBC 12/03/19 19:52 Nucleated RBCs # 0 K/uL 12/03/19 19:52 COVID-19 (KOBI) NEGATIVE (NEGATIVE) 12/03/19 19:36 Blood Type A POSITIVE 12/03/19 19:52 Antibody Screen NEGATIVE 12/03/19 19:52 - Allergies Allergies/Adverse Reactions: Allergies Allergy/AdvReac Type Severity Reaction Status Date / Time No Known Allergies Allergy Verified 12/03/19 19:40 - Acknowledgements Anesthesia Type Planned: Epidural Pt an Appropriate Candidate for the Planned Anesthesia: Yes Alternatives and Risks of Anesthesia Discussed w Pt/Guardian: Yes Pt/Guardian Understands and Agrees with Anesthesia Plan: Yes PreAnesthesia Questionnaire HEENT History: Reports: None Cardiovascular History: Reports: None Respiratory History: Reports: None Gastrointestinal History: Reports: None Genitourinary History: Reports: None AMF MECHANIC History: Reports: Musculoskeletal History: Reports: None Neurological History: Reports: Seizure Other Neuro History: patient in status epilepticus.states hasn't had a seizure in 10 months, not taking any oral medications for seizures, states she smoked marijuana to contol seizures prior to Psychiatric History: Reports: None Endocrine/Metabolic History: Reports: None Hematologic History: Reports: None Immunologic History: Reports: None Oncologic (Cancer) History: Reports: Cervix Other Oncologic History: stage 2 cervical ca approx 2 y ago, 'fine now' Dermatologic History: Reports: None - Infectious Disease History Infectious Disease History: Reports: None - Past Surgical History Head Surgeries/Procedures: Reports: None HEENT Surgical History: Reports: None Cardiovascular Surgical History: Reports: None Respiratory Surgical History: Reports: None GI Surgical History: Reports: None Female Surgical History: Reports: None Endocrine Surgical History: Reports: None Neurological Surgical History: Reports: None Musculoskeletal Surgical History: Reports: None Dermatological Surgical History: Reports: None - SUBSTANCE USE Smoking Status *Q: Never Smoker Second Hand Smoke Exposure: No - HOME MEDS Home Medications: Home Meds No122/Iron/Folic Acid [ Multi Tablet] 1 each PO DAILY 05/01/19 [History] - CURRENT (IN HOUSE) MEDS Current Meds: Current Medications Butorphanol Tartrate (Stadol) 1 mg IVPUSH Q1H PRN PRN Reason: Pain Carboprost Tromethamine (Hemabate Ds) 250 mcg IM ASDIRECTED PRN PRN Reason: Post Hemorrhage Oxytocin/Sodium Chloride (Oxytocin 30 Unit/500 Ml-Ns) 30 unit in 500 mls @ 500 mls/hr IV TITRATE YARED Tranexamic Acid 1,000 mg/ (Sodium Chloride) 110 mls @ 660 mls/hr IV ONETIME PRN PRN Reason: Bleeding Oxytocin/Sodium Chloride (Oxytocin 30 Unit/500 Ml-Ns) 30 unit in 500 mls @ 2 mls/hr IV TITRATE YARED; Protocol Lactated Ringer's (Ringers, Lactated) 1,000 mls @ 150 mls/hr IV ASDIRECTED YARED Last Admin: 12/04/19 12:12 Dose: 999 mls/hr Documented by: Ampicillin Sodium 1 gm/ Sodium (Chloride) 50 mls @ 100 mls/hr IV Q4H [facility] Last Admin: 12/04/19 12:08 Dose: 100 mls/hr Documented by: Lidocaine HCl (Xylocaine 1%) 50 ml INJECT ONETIME PRN PRN Reason: Laceration repair Methylergonovine Maleate (Methergine) 0.2 mg IM ASDIRECTED PRN PRN Reason: Post Hemorrhage Misoprostol (Cytotec) 200 mcg PO ONETIME PRN PRN Reason: Post Hemorrhage Misoprostol (Cytotec) 25 mcg VAG ONETIME PRN PRN Reason: Cervical Ripening Last Admin: 12/03/19 20:35 Dose: 25 mcg Documented by: Misoprostol (Cytotec) 25 mcg VAG Q4H PRN PRN Reason: Cervical Ripening Last Admin: 12/04/19 04:14 Dose: 25 mcg Documented by: Nalbuphine HCl (Nubain) 10 mg IVPUSH Q1H PRN PRN Reason: Pain (severe 7-10) Ondansetron HCl (Zofran) 4 mg IVPUSH Q6H PRN PRN Reason: Nausea/Vomiting Sodium Chloride (Saline Flush) 10 ml FLUSH ASDIRECTED PRN PRN Reason: Keep Vein Open Sodium Chloride (Saline Flush) 2.5 ml FLUSH ASDIRECTED PRN PRN Reason: Keep Vein Open Sodium Chloride (Normal Saline) 10 ml IV ASDIRECTED PRN PRN Reason: IV Use Sterile Water (Sterile Water For Irrigation) 1,000 ml IRR ASDIRECTED PRN PRN Reason: delivery Terbutaline Sulfate (Brethine) 0.25 mg SUBCUT ASDIRECTED PRN PRN Reason: Tacysystole Discontinued Medications Fentanyl (Sublimaze) Confirm Administered Dose 100 mcg .ROUTE .STK-MED ONE Stop: 12/04/19 11:14 Ampicillin Sodium 2 gm/ Sodium (Chloride) 100 mls @ 200 mls/hr IV ONETIME ONE Stop: 12/03/19 20:59 Last Admin: 12/03/19 20:38 Dose: 200 mls/hr Documented by: Ropivacaine (Naropin 0.2%) Confirm Administered Dose 100 mls @ as directed .ROUTE .STK-MED ONE Stop: 12/04/19 11:14
--- NOTE | 2019-12-04 12:26 | PCM.PRNOTE ---
- Free Text/Narrative Note: Anes note pt [id number] labor epidural for L & D Risks and methods discussssed. SHe wishes to proceed Level L2-L3 midline approach. Steral Technique. Chloroprep scrub to lumbar area Steril fenistrated drape applied Epidural space easily achieved. single attempt using ZACH technique ZACH at 3cm. Cath threaded 5cm with ease Cath secured at skin at 10cm using sterile clear adhesive dressing Test dose 1120 3cc 1.5% lido with epi neg Load 1123 10cc 0.2% ropivicain with 1mcg/cc fentanyl added. Pump 1130 90cc same solution rate is 8cc/hr with 66cc q 20min bolus PRN DIANNA well Time with patient [id number] Ha [place] [employer]ATCH WORK[employer]
[2019-12-04] MEDS ORDERED: Ibuprofen 400 MG Tab PO PRN (19:30)
[2019-12-04] MEDS ORDERED: Bisacodyl 10 MG Supp RECTAL PRN (19:30)
[2019-12-04] MEDS ORDERED: Docusate Sodium 100 MG Cap PO PRN (19:30)
[2019-12-04] MEDS ORDERED: Lanolin 100% Cream 7 GM Tube TOP PRN (19:30)
[2019-12-04] MEDS ORDERED: Benzocaine/Menthol 20%-0.5% Spray 78 GM Cannister TOP PRN (19:30)
[2019-12-04] MEDS ORDERED: Acetaminophen 500 MG Tab PO PRN (19:30)
[2019-12-04] MEDS ORDERED: Ibuprofen 800 MG Tab PO PRN (19:30)
--- NOTE | 2019-12-04 19:36 | PCM.DEL ---
L & D Note - General Info Date of Service: 12/04/19 - Delivery Note Labor: Spontaneous, Augmented by Oxytocin Delivery Outcome: Livebirth Infant Delivery Method: Spontaneous Vaginal Delivery-Single Infant Delivery Mode: Spontaneous Presentation: Right Occiput Anterior (ANITA) Nuchal Cord: Present, Reduced Amniotic Fluid Description: Clear Episiotomy Type: None Laceration: Periurethral Suture type: Vicryl Suture size: 3-0 Placenta: Intact, Spontaneous Cord: 3 Vessels Estimated Blood Loss: 300 Resuscitation Needed: No : Suctioned, Bulb Syringe, Stimulated, Warmed, [place] Used, Warmer Used Score 1 min: 8 Score 5 min: 9 Delivery Comments (Free Text/Narrative):: Liveborn female infant weighing [id number], apgars 8 and 9 - General Info Date of Service: 12/04/19 - Patient Data Weight - Most Recent: 162 lb I&O - Last 24 Hours: Intake & Output 12/04/19 12/04/19 12/04/19 06:59 14:59 22:59 Intake Total 100 Balance 100 Lab Results Last 24 Hours: Laboratory Results - last 24 hr 12/03/19 12/03/19 12/03/19 Range/Units 19:36 19:52 19:52 WBC 7.28 (4.0-11.0) K/uL RBC 3.92 L (4.30-5.90) M/uL Hgb 11.9 L (12.0-16.0) g/dL Hct 35.8 L (36.0-46.0) % MCV 91.3 (80.0-98.0) fL MCH 30.4 (27.0-32.0) pg MCHC 33.2 (31.0-37.0) g/dL RDW Std Deviation 47.8 (28.0-62.0) fl RDW Coeff of Sudheer 14 (11.0-15.0) % Plt Count 212 (150-400) K/uL MPV 10.80 (7.40-12.00) fL Nucleated RBC % 0.0 /100WBC Nucleated RBCs # 0 K/uL COVID-19 (KOBI) NEGATIVE (NEGATIVE) Blood Type A POSITIVE Antibody Screen NEGATIVE Med Orders - Current: Current Medications Butorphanol Tartrate (Stadol) 1 mg IVPUSH Q1H PRN PRN Reason: Pain Carboprost Tromethamine (Hemabate Ds) 250 mcg IM ASDIRECTED PRN PRN Reason: Post Hemorrhage Oxytocin/Sodium Chloride (Oxytocin 30 Unit/500 Ml-Ns) 30 unit in 500 mls @ 500 mls/hr IV TITRATE YARED Tranexamic Acid 1,000 mg/ (Sodium Chloride) 110 mls @ 660 mls/hr IV ONETIME PRN PRN Reason: Bleeding Oxytocin/Sodium Chloride (Oxytocin 30 Unit/500 Ml-Ns) 30 unit in 500 mls @ 2 mls/hr IV TITRATE [facility]; Protocol Last Titration: 12/04/19 15:49 Dose: 6 munits/min, 6 mls/hr Documented by: Lactated Ringer's (Ringers, Lactated) 1,000 mls @ 150 mls/hr IV ASDIRECTED YARED Last Admin: 12/04/19 14:06 Dose: 125 mls/hr Documented by: Ampicillin Sodium 1 gm/ Sodium (Chloride) 50 mls @ 100 mls/hr IV Q4H [facility] Last Admin: 12/04/19 16:14 Dose: 100 mls/hr Documented by: Lidocaine HCl (Xylocaine 1%) 50 ml INJECT ONETIME PRN PRN Reason: Laceration repair Methylergonovine Maleate (Methergine) 0.2 mg IM ASDIRECTED PRN PRN Reason: Post Hemorrhage Misoprostol (Cytotec) 200 mcg PO ONETIME PRN PRN Reason: Post Hemorrhage Misoprostol (Cytotec) 25 mcg VAG ONETIME PRN PRN Reason: Cervical Ripening Last Admin: 12/03/19 20:35 Dose: 25 mcg Documented by: Misoprostol (Cytotec) 25 mcg VAG Q4H PRN PRN Reason: Cervical Ripening Last Admin: 12/04/19 04:14 Dose: 25 mcg Documented by: Nalbuphine HCl (Nubain) 10 mg IVPUSH Q1H PRN PRN Reason: Pain (severe 7-10) Ondansetron HCl (Zofran) 4 mg IVPUSH Q6H PRN PRN Reason: Nausea/Vomiting Sodium Chloride (Saline Flush) 10 ml FLUSH ASDIRECTED PRN PRN Reason: Keep Vein Open Sodium Chloride (Saline Flush) 2.5 ml FLUSH ASDIRECTED PRN PRN Reason: Keep Vein Open Sodium Chloride (Normal Saline) 10 ml IV ASDIRECTED PRN PRN Reason: IV Use Sterile Water (Sterile Water For Irrigation) 1,000 ml IRR ASDIRECTED PRN PRN Reason: delivery Last Admin: 12/04/19 17:41 Dose: 1,000 ml Documented by: Terbutaline Sulfate (Brethine) 0.25 mg SUBCUT ASDIRECTED PRN PRN Reason: Tacysystole Discontinued Medications Fentanyl (Sublimaze) Confirm Administered Dose 100 mcg .ROUTE .STK-MED ONE Stop: 12/04/19 11:14 Ampicillin Sodium 2 gm/ Sodium (Chloride) 100 mls @ 200 mls/hr IV ONETIME ONE Stop: 12/03/19 20:59 Last Admin: 12/03/19 20:38 Dose: 200 mls/hr Documented by: Ropivacaine (Naropin 0.2%) Confirm Administered Dose 100 mls @ as directed .ROUTE .STK-MED ONE Stop: 12/04/19 11:14 - Problem List & Annotations (1) Vaginal delivery SNOMED Code(s): 299752890 Code(s): O80 - ENCOUNTER FOR FULL-TERM UNCOMPLICATED DELIVERY Status: Acute Current Visit: Yes - Problem List Review Problem List Initiated/Reviewed/Updated: Yes - Assessment Assessment:: 24yo s/p . GBS positive adequately treated in labor - Plan Plan:: admit to for routine care monitor lochia encourage
[2019-12-04] MEDS: Witch Hazel Medicated Pads 40/Jar TOP PRN (21:07)
--- NOTE | 2019-12-04 23:57 | OR ---
SURGEON: Harshad Cordero MD DATE OF PROCEDURE: 12/04/2019 INDICATION FOR PROCEDURE: A 24-year-old G2, P1-0-0-1 at 39 weeks and 2 days, presenting for induction of labor. The patient had complicated by seizure disorder which has well controlled during . 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 He is also a sickle cell and CF carrier, she was tested and is negative. She is GBS positive. She received 3 doses of Cytotec, started on Pitocin and had AROM with clear fluid. She received an epidural with good pain control. She received ampicillin for GBS prophylaxis. She had intermittent early and variable decels that recovered with repositioning. She progressed to fully dilated and began pushing. PREOPERATIVE DIAGNOSIS: Pleitez intrauterine at 39 weeks and 2 days. POSTOPERATIVE DIAGNOSIS: Pleitez intrauterine at 39 weeks and 2 days. PROCEDURES PERFORMED: Normal spontaneous vaginal delivery, repair of periurethral laceration. ANESTHESIA: Epidural. FINDINGS: Female infant, score of 8 and 9, weight of 8 pounds and 3 ounces. Baby had a nuchal cord x1 and a body cord. DESCRIPTION OF PROCEDURE: The patient pushed with contractions for about half hour without much descent. On exam, it was noted baby was in ROP presentation. The baby was manually rotated to ANITA as she continued to push with contractions. She pushed for approximately 3 hours and the head delivered over intact perineum in occiput anterior position. The shoulder did not rotate initially and was in transverse presentation. It was manually rotated ROT. Anterior shoulder delivered easily followed by posterior shoulder. Nuchal cord x1 was noted and reduced before delivery. The body delivered without difficulty. The baby was placed on maternal chest and evaluated by awaiting nursery staff. The baby was initially pale and did not cry, but responded well to stimulation and was pink, crying and moving all extremities. The umbilical cord was clamped and cut after 60 seconds and no longer pulsating. Umbilical cord gases were obtained. The placenta was removed with gentle traction on the umbilical cord. It was examined and found to be intact with 3-vessel cord. She had a small right periurethral laceration that was reapproximated with two [id number] stitches using 3-0 Vicryl. Fundal massage was performed. The uterus was firm and below the umbilicus, and the bleeding was light. She tolerated the procedure well, was given care instructions. TODD GURROLA /[id number] MTDD
[2019-12-05] MEDS: Acetaminophen 500 MG Tab PO PRN ×2 (02:22→06:24)
--- NOTE | 2019-12-05 07:19 | PCM48HPAN ---
Post Anesthesia Note - EVALUATION WITHIN 48HRS OF ANESTHETIC Vital Signs in Normal Range: Yes Patient Participated in Evaluation: Yes Respiratory Function Stable: Yes Airway Patent: Yes Cardiovascular Function Stable: Yes Hydration Status Stable: Yes Pain Control Satisfactory: Yes Nausea and Vomiting Control Satisfactory: Yes Mental Status Recovered: Yes Vital Signs: Last Vital Signs Temp 36.6 C 12/05/19 04:00 Pulse 66 12/05/19 04:00 Resp 16 12/05/19 04:00 BP 112/63 12/05/19 04:00 Pulse Ox 94 L 12/05/19 04:00
--- NOTE | 2019-12-05 07:32 | PCM.PNPP ---
<Yanick Pugh - Last Filed: 12/05/19 07:28> - General Info Date of Service: 12/05/19 Subjective Update: Pt doing well this morning. Pain is well-controlled. Bleeding is moderate. Has been ambulating, voiding, and tolerating oral intake without difficulty. Is and supplementing with formula. - Review of Systems General: Reports: No Symptoms HEENT: Reports: No Symptoms Pulmonary: Reports: No Symptoms Cardiovascular: Reports: No Symptoms Gastrointestinal: Reports: No Symptoms Genitourinary: Reports: No Symptoms Musculoskeletal: Reports: No Symptoms Skin: Reports: No Symptoms Neurological: Reports: No Symptoms Psychiatric: Reports: No Symptoms - General Info Date of Service: 12/05/19 - Patient Data Vital Signs - Most Recent: Last Vital Signs Temp 97.8 F 12/05/19 04:00 Pulse 66 12/05/19 04:00 Resp 16 12/05/19 04:00 BP 112/63 12/05/19 04:00 Pulse Ox 94 L 12/05/19 04:00 Weight - Most Recent: 162 lb Lab Results - Last 24 Hours: Laboratory Results - last 24 hr 12/04/19 12/05/19 Range/Units 19:06 05:48 Hgb 11.1 L (12.0-16.0) g/dL Hct 34.1 L (36.0-46.0) % Cord ABG pH 7.170 L (7.18-7.38) Cord ABG Base Excess -6 (-10--2) Cord VBG pH 7.387 (7.25-7.45) Cord VBG Base Excess -4 (-10--2) Med Orders - Current: Current Medications Acetaminophen (Tylenol Extra Strength) 500 mg PO Q4H PRN PRN Reason: Pain Acetaminophen (Tylenol Extra Strength) 1,000 mg PO Q4H PRN PRN Reason: Pain Last Admin: 12/05/19 06:24 Dose: 1,000 mg Documented by: Benzocaine/Menthol (Dermoplast Pain Relief 20%-0.5% [place]) 78 gm TOP ASDIRECTED PRN PRN Reason: Perineal Comfort Measure Last Admin: 12/04/19 21:07 Dose: 1 applic Documented by: Bisacodyl (Dulcolax) 10 mg RECTAL ONETIME PRN PRN Reason: Constipation Butorphanol Tartrate (Stadol) 1 mg IVPUSH Q1H PRN PRN Reason: Pain Carboprost Tromethamine (Hemabate Ds) 250 mcg IM ASDIRECTED PRN PRN Reason: Post Hemorrhage Docusate Sodium (Colace) 100 mg PO BID PRN PRN Reason: Constipation Emollient Ointment (Lansinoh Hpa) 0 gm TOP ASDIRECTED PRN PRN Reason: Sore Nipples Last Admin: 12/04/19 21:07 Dose: 1 applic Documented by: Oxytocin/Sodium Chloride (Oxytocin 30 Unit/500 Ml-Ns) 30 unit in 500 mls @ 500 mls/hr IV TITRATE YARED Tranexamic Acid 1,000 mg/ (Sodium Chloride) 110 mls @ 660 mls/hr IV ONETIME PRN PRN Reason: Bleeding Oxytocin/Sodium Chloride (Oxytocin 30 Unit/500 Ml-Ns) 30 unit in 500 mls @ 2 mls/hr IV TITRATE YARED; Protocol Last Titration: 12/04/19 15:49 Dose: 6 munits/min, 6 mls/hr Documented by: Lactated Ringer's (Ringers, Lactated) 1,000 mls @ 150 mls/hr IV ASDIRECTED YARED Last Admin: 12/04/19 14:06 Dose: 125 mls/hr Documented by: Ibuprofen (Motrin) 400 mg PO Q4H PRN PRN Reason: Pain Ibuprofen (Motrin) 800 mg PO Q6H PRN PRN Reason: Pain Last Admin: 12/04/19 23:19 Dose: 800 mg Documented by: Lidocaine HCl (Xylocaine 1%) 50 ml INJECT ONETIME PRN PRN Reason: Laceration repair Methylergonovine Maleate (Methergine) 0.2 mg IM ASDIRECTED PRN PRN Reason: Post Hemorrhage Misoprostol (Cytotec) 200 mcg PO ONETIME PRN PRN Reason: Post Hemorrhage Misoprostol (Cytotec) 25 mcg VAG ONETIME PRN PRN Reason: Cervical Ripening Last Admin: 12/03/19 20:35 Dose: 25 mcg Documented by: Misoprostol (Cytotec) 25 mcg VAG Q4H PRN PRN Reason: Cervical Ripening Last Admin: 12/04/19 04:14 Dose: 25 mcg Documented by: Nalbuphine HCl (Nubain) 10 mg IVPUSH Q1H PRN PRN Reason: Pain (severe 7-10) Ondansetron HCl (Zofran) 4 mg IVPUSH Q6H PRN PRN Reason: Nausea/Vomiting Sodium Chloride (Saline Flush) 10 ml FLUSH ASDIRECTED PRN PRN Reason: Keep Vein Open Sodium Chloride (Saline Flush) 2.5 ml FLUSH ASDIRECTED PRN PRN Reason: Keep Vein Open Sodium Chloride (Normal Saline) 10 ml IV ASDIRECTED PRN PRN Reason: IV Use Sterile Water (Sterile Water For Irrigation) 1,000 ml IRR ASDIRECTED PRN PRN Reason: delivery Last Admin: 12/04/19 17:41 Dose: 1,000 ml Documented by: Terbutaline Sulfate (Brethine) 0.25 mg SUBCUT ASDIRECTED PRN PRN Reason: Tacysystole Witch Monica (Tucks) 1 pad TOP ASDIRECTED PRN PRN Reason: comfort care Last Admin: 12/04/19 21:07 Dose: 1 applicful Documented by: Discontinued Medications Fentanyl (Sublimaze) Confirm Administered Dose 100 mcg .ROUTE .STK-MED ONE Stop: 12/04/19 11:14 Last Admin: 12/05/19 00:06 Dose: Not Given Documented by: Ampicillin Sodium 2 gm/ Sodium (Chloride) 100 mls @ 200 mls/hr IV ONETIME ONE Stop: 12/03/19 20:59 Last Admin: 12/03/19 20:38 Dose: 200 mls/hr Documented by: Ampicillin Sodium 1 gm/ Sodium (Chloride) 50 mls @ 100 mls/hr IV Q4H YARED Stop: 12/04/19 19:06 Last Admin: 12/04/19 16:14 Dose: 100 mls/hr Documented by: Ropivacaine (Naropin 0.2%) Confirm Administered Dose 100 mls @ as directed .ROUTE .STK-MED ONE Stop: 12/04/19 11:14 Last Admin: 12/05/19 00:06 Dose: Not Given Documented by: - Interaction Support Person: - Recovery Exam Fundal Tone: Firm Fundal Level: At Umbilicus Fundal Placement: Midline Lochia Amount: Small Lochia Color: Rubra/Red Perineum Description: Edematous Episiotomy/Laceration: Approximated Bladder Status: Voiding - Exam General: Alert, Oriented HEENT: Pupils Equal, EOMI Neck: Supple Lungs: Clear to Auscultation, Normal Respiratory Effort. No: Crackles, Rales, Rhonchi, Wheezing Cardiovascular: Regular Rate, Regular Rhythm GI/Abdominal Exam: Normal Bowel Sounds, Soft, Tender. No: Guarding, Rigid Extremities: Normal Inspection, Normal Range of Motion, Non-Tender Skin: Warm, Dry, Intact Neurological: No New Focal Deficit, Normal Speech, Normal Tone Psy/Mental Status: Alert, Normal Affect, Normal Mood - Problem List & Annotations (1) Vaginal delivery SNOMED Code(s): 528007257 Code(s): O80 - ENCOUNTER FOR FULL-TERM UNCOMPLICATED DELIVERY Status: Acute Current Visit: Yes - Problem List Review Problem List Initiated/Reviewed/Updated: Yes - Assessment Assessment:: 24yo s/p . GBS positive adequately treated in labor. PPD#1 - Plan Plan:: routine care monitor lochia encourage Discharge today <Harshad Cordero - Last Filed: 12/05/19 08:30> - Patient Data Vital Signs - Most Recent: Last Vital Signs Temp 36.4 C 12/05/19 08:00 Pulse 66 12/05/19 04:00 Resp 17 12/05/19 08:00 BP 112/67 12/05/19 08:00 Pulse Ox 98 12/05/19 08:00 Lab Results - Last 24 Hours: Laboratory Results - last 24 hr 12/04/19 12/05/19 Range/Units 19:06 05:48 Hgb 11.1 L (12.0-16.0) g/dL Hct 34.1 L (36.0-46.0) % Cord ABG pH 7.170 L (7.18-7.38) Cord ABG Base Excess -6 (-10--2) Cord VBG pH 7.387 (7.25-7.45) Cord VBG Base Excess -4 (-10--2) Med Orders - Current: Current Medications Acetaminophen (Tylenol Extra Strength) 500 mg PO Q4H PRN PRN Reason: Pain Acetaminophen (Tylenol Extra Strength) 1,000 mg PO Q4H PRN PRN Reason: Pain Last Admin: 12/05/19 06:24 Dose: 1,000 mg Documented by: Benzocaine/Menthol (Dermoplast Pain Relief 20%-0.5% [place]) 78 gm TOP ASDIRECTED PRN PRN Reason: Perineal Comfort Measure Last Admin: 12/04/19 21:07 Dose: 1 applic Documented by: Bisacodyl (Dulcolax) 10 mg RECTAL ONETIME PRN PRN Reason: Constipation Butorphanol Tartrate (Stadol) 1 mg IVPUSH Q1H PRN PRN Reason: Pain Carboprost Tromethamine (Hemabate Ds) 250 mcg IM ASDIRECTED PRN PRN Reason: Post Hemorrhage Docusate Sodium (Colace) 100 mg PO BID PRN PRN Reason: Constipation Emollient Ointment (Lansinoh Hpa) 0 gm TOP ASDIRECTED PRN PRN Reason: Sore Nipples Last Admin: 12/04/19 21:07 Dose: 1 applic Documented by: Oxytocin/Sodium Chloride (Oxytocin 30 Unit/500 Ml-Ns) 30 unit in 500 mls @ 500 mls/hr IV TITRATE YARED Tranexamic Acid 1,000 mg/ (Sodium Chloride) 110 mls @ 660 mls/hr IV ONETIME PRN PRN Reason: Bleeding Oxytocin/Sodium Chloride (Oxytocin 30 Unit/500 Ml-Ns) 30 unit in 500 mls @ 2 mls/hr IV TITRATE [facility]; Protocol Last Titration: 12/04/19 15:49 Dose: 6 munits/min, 6 mls/hr Documented by: Lactated Ringer's (Ringers, Lactated) 1,000 mls @ 150 mls/hr IV ASDIRECTED YARED Last Admin: 12/04/19 14:06 Dose: 125 mls/hr Documented by: Ibuprofen (Motrin) 400 mg PO Q4H PRN PRN Reason: Pain Ibuprofen (Motrin) 800 mg PO Q6H PRN PRN Reason: Pain Last Admin: 12/04/19 23:19 Dose: 800 mg Documented by: Lidocaine HCl (Xylocaine 1%) 50 ml INJECT ONETIME PRN PRN Reason: Laceration repair Methylergonovine Maleate (Methergine) 0.2 mg IM ASDIRECTED PRN PRN Reason: Post Hemorrhage Misoprostol (Cytotec) 200 mcg PO ONETIME PRN PRN Reason: Post Hemorrhage Misoprostol (Cytotec) 25 mcg VAG ONETIME PRN PRN Reason: Cervical Ripening Last Admin: 12/03/19 20:35 Dose: 25 mcg Documented by: Misoprostol (Cytotec) 25 mcg VAG Q4H PRN PRN Reason: Cervical Ripening Last Admin: 12/04/19 04:14 Dose: 25 mcg Documented by: Nalbuphine HCl (Nubain) 10 mg IVPUSH Q1H PRN PRN Reason: Pain (severe 7-10) Ondansetron HCl (Zofran) 4 mg IVPUSH Q6H PRN PRN Reason: Nausea/Vomiting Sodium Chloride (Saline Flush) 10 ml FLUSH ASDIRECTED PRN PRN Reason: Keep Vein Open Sodium Chloride (Saline Flush) 2.5 ml FLUSH ASDIRECTED PRN PRN Reason: Keep Vein Open Sodium Chloride (Normal Saline) 10 ml IV ASDIRECTED PRN PRN Reason: IV Use Sterile Water (Sterile Water For Irrigation) 1,000 ml IRR ASDIRECTED PRN PRN Reason: delivery Last Admin: 12/04/19 17:41 Dose: 1,000 ml Documented by: Terbutaline Sulfate (Brethine) 0.25 mg SUBCUT ASDIRECTED PRN PRN Reason: Tacysystole Witch Monica (Tucks) 1 pad TOP ASDIRECTED PRN PRN Reason: comfort care Last Admin: 12/04/19 21:07 Dose: 1 applicful Documented by: Discontinued Medications Fentanyl (Sublimaze) Confirm Administered Dose 100 mcg .ROUTE .STK-MED ONE Stop: 12/04/19 11:14 Last Admin: 12/05/19 00:06 Dose: Not Given Documented by: Ampicillin Sodium 2 gm/ Sodium (Chloride) 100 mls @ 200 mls/hr IV ONETIME ONE Stop: 12/03/19 20:59 Last Admin: 12/03/19 20:38 Dose: 200 mls/hr Documented by: Ampicillin Sodium 1 gm/ Sodium (Chloride) 50 mls @ 100 mls/hr IV Q4H YARED Stop: 12/04/19 19:06 Last Admin: 12/04/19 16:14 Dose: 100 mls/hr Documented by: Ropivacaine (Naropin 0.2%) Confirm Administered Dose 100 mls @ as directed .ROUTE .STK-MED ONE Stop: 12/04/19 11:14 Last Admin: 12/05/19 00:06 Dose: Not Given Documented by: - My Orders Last 24 Hours: My Active Orders 12/04/19 19:30 Patient Status [ADT] Routine May Shower [RC] ASDIRECTED Up ad Lina [RC] ASDIRECTED Vital Signs [RC] PER UNIT ROUTINE Acetaminophen [Tylenol Extra Strength] 1,000 mg PO Q4H PRN Acetaminophen [Tylenol Extra Strength] 500 mg PO Q4H PRN Benzocaine/Menthol [Dermoplast Pain Relief 20%-0.5% [place]] 78 gm TOP ASDIRECTED PRN Docusate Sodium [Colace] 100 mg PO BID PRN Ibuprofen [Motrin] 400 mg PO Q4H PRN Ibuprofen [Motrin] 800 mg PO Q6H PRN Lanolin [Lansinoh HPA] See Dose Instructions TOP ASDIRECTED PRN bisacodyL [Dulcolax] 10 mg RECTAL ONETIME PRN witch Monica [Tucks] 1 pad TOP ASDIRECTED PRN Assess Lochia [WOMSER] Per Unit Routine Assess Uterine Involution [WOMSER] Per Unit Routine Peripheral IV Discontinue [OM.PC] Routine 12/04/19 19:31 Cooling Warming Measures [RC] ASDIRECTED Ice Therapy [OM.PC] Per Unit Routine Perineal Care [OM.PC] Per Unit Routine 12/05/19 08:21 Ready for Discharge [RC] PER UNIT ROUTINE - Plan Plan:: Patient doing well. Hgb 11.1, light bleeding, no s/s of anemia. Meeting all milestones, stable for discharge home today.
[2019-12-05] MEDS: Witch Hazel Medicated Pads 40/Jar TOP PRN (20:48)
== END 2019-12-05 22:22 | disposition home or self-care (01) | DRG 807 ==
LOC: MW.OBCHECK 19:25 → MW.OB 19:26 → OBSVTOIN 12-04 19:06 → UNDOADMOB 12-04 19:25 → MW.OB 12-04 19:25
PROVIDERS: ADMIT Obstetrics & Gynecology; ATTEND Obstetrics & Gynecology
PROC: 10E0XZZ Delivery of Products of Conception, External Approach (ICD-10-PCS; principal; 2019-12-04)
PROC: 0UQMXZZ Repair Vulva, External Approach (ICD-10-PCS; 2019-12-04)
PROC: 3E0R3BZ Introduction of Anesthetic Agent into Spinal Canal, Percutaneous Approach (ICD-10-PCS; 2019-12-04)
DX: O99.824 Streptococcus B carrier state complicating childbirth (principal); Z37.0 Single live birth; Z3A.39 39 weeks gestation of pregnancy; O71.82 Other specified trauma to perineum and vulva; Z11.59 Encounter for screening for other viral diseases
CPT/HCPCS: 01967; 36415; 51702; 59025; 59409; 82803; 85014; 85018; 85027; 86592; 86850; 86900; 86901; A9270-GY; J0290; J2590; J2795; J3010; J7050; J7120; U0002

== ENCOUNTER 2020-06-18 16:56 | Emergency (ER) | payer MEDICAID ==
--- NOTE | 2020-06-18 17:11 | EDM.PDOC ---
ED HPI GENERAL MEDICAL PROBLEM - General Chief Complaint: Upper Extremity Injury/Pain Stated Complaint: RIGHT HAND INJURY Time Seen by Provider: 06/18/20 17:10 Source of Information: Reports: Patient History Limitations: Reports: No Limitations - History of Present Illness INITIAL COMMENTS - FREE TEXT/NARRATIVE: 24-year-old female presents with right hand injury. She was fired from her job and she punched sheet rock about 15 times with her hand just prior to arrival. Pain is localized to the right hand metacarpals, constant, severe, exacerbated with range of motion, alleviated with immobilization, sharp, nonradiating. ROS: A 10-point review of systems, other than pertinent positives and negatives as stated per HPI, is otherwise negative Past medical history: No additional pertinent history Past Surgical history: No additional pertinent history Social history: No additional pertinent history Family history: No additional pertinent history PHYSICAL EXAM General: AOx4, GCS = 15, moderate distress HEENT: dry mucous membrane Neck: supple, no meningismus, no Kernig or Brudzinski Cardiac: S1S2 RRR Respiratory: CTAB, no crackles or rales, no wheezing Abdomen: Soft, nontender, no rebound or guarding, nondistended, no pulsatile mass. Back: nontender Musculoskeletal: NVI distally, swelling to right hand distal metacarpals, no human bite rachel. No deformity Neuro: No focal deficits, CN 2 - 12 WNL. 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: Musculoskeletal History: Reports: None Neurological History: Reports: Seizure Other Neuro History: patient in status epilepticus.states hasn't had a seizure in 10 months, not taking any oral medications for seizures, states she smoked marijuana to contol seizures prior to Psychiatric History: Reports: None Endocrine/Metabolic History: Reports: None Insulin Pump Model and Pediatric Medical Assistant: None Hematologic History: Reports: None Immunologic History: Reports: None Oncologic (Cancer) History: Reports: Cervix Other Oncologic History: stage 2 cervical ca approx 2 y ago, 'fine now' Dermatologic History: Reports: None - Infectious Disease History Infectious Disease History: Reports: None - Past Surgical History Head Surgeries/Procedures: Reports: None HEENT Surgical History: Reports: None Cardiovascular Surgical History: Reports: None Respiratory Surgical History: Reports: None GI Surgical History: Reports: None Female Surgical History: Reports: None Endocrine Surgical History: Reports: None Neurological Surgical History: Reports: None Musculoskeletal Surgical History: Reports: None Dermatological Surgical History: Reports: None Social & Family History - Family History Family Medical History: No Pertinent Family History Endocrine/Metabolic: Reports: Diabetes, Type I Oncologic: Reports: Other (See Below) Other Oncologic Family History: Cancer - Caffeine Use Caffeine Use: Reports: None Review of Systems - Review of Systems Review Of Systems: See Below (see dictation) ED EXAM, GENERAL - Physical Exam Exam: See Below (see dictation) Course - Vital Signs Last Recorded V/S: Last Vital Signs Temp 97.2 F 06/18/20 17:12 Pulse 80 06/18/20 17:12 Resp 18 06/18/20 17:12 BP 121/80 06/18/20 17:12 Pulse Ox 99 06/18/20 17:12 - Orders/Labs/Meds Orders: Active Orders 24 hr Category Date Time Status DME for Discharge [COMM] Stat Oth 06/18/20 17:52 Ordered - Re-Assessments/Exams Free Text/Narrative Re-Assessment/Exam: 06/18/20 18:11 After splinting in the ER, the patient improved and is currently stable for discharge. I performed a repeat exam and did not appreciate new abnormal findings. Patient exhibits normal vital signs and has a normal gait on road test. I advised the patient to return to the ER for reevaluation if symptoms worsened, including fever, worsening pain, or any other worrisome symptoms. I instructed the patient to follow up with their PCP within 3-5 days. MEDICAL DECISION MAKING: I reviewed the patients past medical records, lab and radiographic findings. I discussed the case with the patient. My differential diagnosis included: Contusion, fracture, dislocation. X-ray did not demonstrate any fracture. The affected extremity demonstrated good distal perfusion, warm, pink, cap refill <2 seconds, compartments soft, pulses equal in both extremities. Patient understands to return immediately for worsening pain, swelling, fever, numbness/tingling or other concerns and to f/u with PMD if no improvement of symptoms within 3-5 days. Departure - Departure Time of Disposition: 18:19 Disposition: Home, Self-Care 01 Condition: Good Clinical Impression: Contusion of hand(s) - Discharge Information *PRESCRIPTION DRUG MONITORING PROGRAM REVIEWED*: Not Applicable *COPY OF PRESCRIPTION DRUG MONITORING REPORT IN PATIENT REY: Not Applicable Prescriptions: Naproxen [Naprosyn] 500 mg PO Q12HR #30 tab Instructions: Cast or Splint Care, Adult, [id number], Contusion, [id number] Referrals: Nakita Henderson MD [Primary Care Provider] - 1 Week Forms: ED Department Discharge Additional Instructions: The need for follow-up, as well as the timing and circumstances, are variable depending upon the specifics of your emergency department visit. If you don't have a primary care physician on staff, we will provide you with a referral. We always advise you to contact your personal physician following an emergency department visit to inform them of the circumstance of the visit and for follow-up with them and/or the need for any referrals to a consulting specialist. The emergency department will also refer you to a specialist when appropriate. This referral assures that you have the opportunity for follow-up care with a specialist. All of these measure are taken in an effort to provide you with optimal care, which includes your follow-up. Under all circumstances we always encourage you to contact your private physician who remains a resource for coordinating your care. When calling for follow-up care, please make the office aware that this follow-up is from your recent emergency room visit. If for any reason you are refused follow-up, please contact the [facility] at and asked to speak to the emergency department charge nurse. If you do not have a primary care doctor, please follow up with the clinics below within 3-5 days. [facility] - [facility] [address] [place] [id number] [facility] [address] [place] [id number] Sepsis Event Note (ED) - Focused Exam Vital Signs: Vital Signs Temp Pulse Resp BP Pulse Ox 06/18/20 17:12 97.2 F 80 18 121/80 99 - My Orders Last 24 Hours: My Active Orders 06/18/20 17:52 DME for Discharge [COMM] Stat - Assessment/Plan Last 24 Hours: My Active Orders 06/18/20 17:52 DME for Discharge [COMM] Stat
--- NOTE | 2020-06-18 18:06 | CR ---
Indication: Right hand injury Technique: Three views of the right hand Comparison: Right hand radiographs 07/28/2018 Findings: There is no fracture or joint dislocation. The soft tissues of the hand are grossly unremarkable. Impression: No acute abnormality. Dictated by Ilan Louie MD @ Jun 18 2020 6:05PM Signed by Dr. Ilan Louie @ Jun 18 2020 6:05PM
== END 2020-06-18 18:50 | disposition home or self-care (01) ==
LOC: MW.ED 16:56
DX: S60.221A Contusion of right hand, initial encounter (principal); W22.8XXA Striking against or struck by other objects, initial encounter
CPT/HCPCS: 29125; 73130-26-RT; 73130-RT; 99283; 99283-25

== ENCOUNTER 2021-04-03 10:01 | Emergency (ER) | payer MEDICAID ==
--- NOTE | 2021-04-03 10:49 | EDM.PDOC ---
ED HPI GENERAL MEDICAL PROBLEM - General Chief Complaint: Respiratory Problem Stated Complaint: COVID SYMPTOMS Time Seen by Provider: 04/03/21 10:34 Source of Information: Reports: Patient History Limitations: Reports: No Limitations - History of Present Illness INITIAL COMMENTS - FREE TEXT/NARRATIVE: HISTORY AND PHYSICAL: History of present illness: Patient is a 25-year-old female who presents to the emergency room with concerns of COVID-19. She states over the past few days she has been experiencing shortness of breath with cough. Stating she is coughing so frequently she has a sore throat. Mild fever, body aches, nausea and dry heaves. Patient denies any change in vision, syncope or near syncope. Denies any chest pain, back pain, abdominal pain, diarrhea, constipation or dysuria. Has not noted any blood in urine or stool. Patient has been eating and drinking appropriately. No recent travel or sick contacts. Review of systems: As per history of present illness and below otherwise all systems reviewed and negative. Past medical history: As per history of present illness and as reviewed below otherwise noncontributory. Surgical history: As per history of present illness and as reviewed below otherwise noncontributory. Social history: See social history for further information Family history: As per history of present illness and as reviewed below otherwise noncontributory. Physical exam: General: Well developed and well nourished 25-year-old female. Alert and orientated x 3. Nontoxic in appearance and in no acute distress. Vital signs are stable and have been reviewed by me. Nursing notes were reviewed. HEENT: Atraumatic, normocephalic, pupils equal and reactive bilaterally, negative for conjunctival pallor or scleral icterus, mucous membranes moist, TMs normal bilaterally, throat clear, neck supple, nontender, trachea midline. No drooling or trismus noted. No meningeal signs. No hot potato voice noted. Lungs: Clear to auscultation bilaterally. No wheezes, rales, or rhonchi. Chest nontender. Normal work of breathing, no accessory muscles used. Heart: S1S2, regular rate and rhythm without overt murmur, gallops, or rubs. No JVD. No peripheral edema Abdomen: Soft, nondistended, nontender. Skin: Intact, warm, dry. No lesions or rashes noted. Hematologic: No petechiae or purpra. Mucosa appropriate color and normal nail bed color and refill. Extremities: Atraumatic, moves all extremities per self without difficulty or deficits, negative for cords or calf pain. Neurovascular unremarkable. Neuro: Awake, alert, oriented. Cranial nerves II through XII unremarkable. Cerebellum unremarkable. Motor and sensory unremarkable throughout. Exam nonfocal. Psychiatric: Mood and affect are appropriate. Normal thought process. Answering questions appropriately. Please note that the patient was seen and evaluated during the 2019 SARS-CoV-2 novel coronavirus pandemic period. Community viral transmission is ongoing at time of this encounter and the emergency department is operating under pandemic response procedures. Medical Decision Making: Patient is a 25-year-old female who presents to the emergency room with complaints of flulike symptoms. She is requesting COVID-19 testing. Physical exam is unremarkable. Her vital signs are stable. At this time I do not feel she requires any further testing other than the COVID-19/influenza. Patient is agreeable. Negative influenza screening. Positive for COVID-19. I have talked with the patient about today's findings, in addition to providing specific details for plan of care. Reassessment at the time of disposition demonstrates that the patient is in no acute distress. Will prescribe Zofran for nausea symptoms. The patient is stable for discharge, counseling was provided and we discussed in great detail signs and symptoms that would prompt them to return to the Emergency Department. Medication, follow up and supportive care measures were reviewed and discussed. Voices understanding and is agreeable to plan of care. Denies any further questions or concerns at this time. Diagnostics: COVID/Influenza Therapeutics: None Prescription: Zofran Impression: COVID-19 Plan: 1. Your COVID-19 screening is positive. That means you do have the coronavirus and you are considered contagious. Your vital signs and oxygen saturation are well enough that you were able to monitor your symptoms at home. Continue to monitor for trouble breathing, new confusion or inability to arouse, bluish lips or face or any of the other symptoms we discussed -if this occurs please return to the emergency room immediately. 2. Please self quarantine until cleared by [facility] Department. Inform any persons that you have been in contact with since you started becoming s ymptomatic that you have tested positive; they should be made aware and take the appropriate steps as needed. 3. You can take NyQuil during the evening to help get a restful night sleep. May alternate Tylenol and ibuprofen as needed for pain and fever management. 4. The [facility] department will be calling you and following up with you. The [facility] Hotline phone number , They are open Monday - Monday 7am - 7pm. Follow up with your primary care provider for re-evaluation as directed. Definitive disposition and diagnosis as appropriate pending reevaluation and review of above. 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: Musculoskeletal History: Reports: None Neurological History: Reports: Seizure Other Neuro History: patient in status epilepticus.states hasn't had a seizure in 10 months, not taking any oral medications for seizures, states she smoked marijuana to contol seizures prior to Psychiatric History: Reports: None Endocrine/Metabolic History: Reports: None Insulin Pump Model and Curtain Stretcher: None Hematologic History: Reports: None Immunologic History: Reports: None Oncologic (Cancer) History: Reports: Cervix Other Oncologic History: stage 2 cervical ca approx 2 y ago, 'fine now' Dermatologic History: Reports: None - Infectious Disease History Infectious Disease History: Reports: None - Past Surgical History Head Surgeries/Procedures: Reports: None HEENT Surgical History: Reports: None Cardiovascular Surgical History: Reports: None Respiratory Surgical History: Reports: None GI Surgical History: Reports: None Female Surgical History: Reports: None Endocrine Surgical History: Reports: None Neurological Surgical History: Reports: None Musculoskeletal Surgical History: Reports: None Dermatological Surgical History: Reports: None Social & Family History - Family History Family Medical History: No Pertinent Family History Endocrine/Metabolic: Reports: Diabetes, Type I Oncologic: Reports: Other (See Below) Other Oncologic Family History: Cancer - Caffeine Use Caffeine Use: Reports: None ED ROS GENERAL - Review of Systems Review Of Systems: Comprehensive ROS is negative, except as noted in HPI. ED EXAM, GENERAL - Physical Exam Exam: See Below (See dictation) Course - Vital Signs Last Recorded V/S: Last Vital Signs Temp 98.7 F 04/03/21 10:35 Pulse 87 04/03/21 10:35 Resp 16 04/03/21 10:35 BP 105/62 04/03/21 10:35 Pulse Ox 98 04/03/21 10:35 - Orders/Labs/Meds Orders: Active Orders 24 hr Category Date Time Status Isolation [COMM] Routine Oth 04/03/21 10:10 Active Labs: Laboratory Tests 04/03/21 Range/Units 10:42 Influenza Type A RNA NEGATIVE (NEGATIVE) Influenza Type B RNA NEGATIVE (NEGATIVE) SARS-CoV-2 RNA (KOBI) POSITIVE H (NEGATIVE) Departure - Departure Time of Disposition: 11:30 Disposition: Home, Self-Care 01 Clinical Impression: COVID-19 - Discharge Information Instructions: 10 Things You Can Do to Manage Your COVID-19 Symptoms at Home - [facility] (11/27/2020) Referrals: PCP,None [Primary Care Provider] - Forms: ED Department Discharge Additional Instructions: The following information is given to patients seen in the emergency department who are being discharged to home. This information is to outline your options for follow-up care. We provide all patients seen in our emergency department with a follow-up referral. The need for follow-up, as well as the timing and circumstances, are variable depending upon the specifics of your emergency department visit. If you don't have a primary care physician on staff, we will provide you with a referral. We always advise you to contact your personal physician following an emergency department visit to inform them of the circumstance of the visit and for follow-up with them and/or the need for any referrals to a consulting specialist. The emergency department will also refer you to a specialist when appropriate. This referral assures that you have the opportunity for follow-up care with a specialist. All of these measure are taken in an effort to provide you with optimal care, which includes your follow-up. Under all circumstances we always encourage you to contact your private physician who remains a resource for coordinating your care. When calling for follow-up care, please make the office aware that this follow-up is from your recent emergency room visit. If for any reason you are refused follow-up, please contact the [facility] Emergency Department at and asked to speak to the emergency department charge nurse. [facility] [address] [place] [address] [facility] [address] [place] [id number] Thank you for choosing the [facility] emergency department in [place] for your medical needs today. It was a pleasure caring for you. Today you were seen in the emergency department for COVID-19 Your prescription was electronically sent to: [facility] 1. Your COVID-19 screening is positive. That means you do have the coronavirus and you are considered contagious. Your vital signs and oxygen saturation are well enough that you were able to monitor your symptoms at home. Continue to monitor for trouble breathing, new confusion or inability to arouse, bluish lips or face or any of the other symptoms we discussed -if this occurs please return to the emergency room immediately. 2. Please self quarantine until cleared by [facility] Department. Inform any persons that you have been in contact with since you started becoming symptomatic that you have tested positive; they should be made aware and take the appropriate steps as needed. 3. Zofran as needed for nausea. You can take NyQuil during the evening to help get a restful night sleep. May alternate Tylenol and ibuprofen as needed for pain and fever management. 4. The [facility] department will be calling you and following up with you. The [place] 19 Hotline phone number , They are open Monday - Monday 7am - 7pm. Follow up with your primary care provider for re-evaluation as directed. Sepsis Event Note (ED) - Focused Exam Vital Signs: Vital Signs Temp Pulse Resp BP Pulse Ox 04/03/21 10:35 98.7 F 87 16 105/62 98 - My Orders Last 24 Hours: My Active Orders 04/03/21 10:10 Isolation [COMM] Routine - Assessment/Plan Last 24 Hours: My Active Orders 04/03/21 10:10 Isolation [COMM] Routine
[2021-04-03 11:26] LABS: CORONAVIRUS COVID-19 NAA POSITIVE (NEGATIVE); INFLUENZA A NAA NEGATIVE (NEGATIVE); INFLUENZA B NAA NEGATIVE (NEGATIVE)
== END 2021-04-03 11:46 | disposition home or self-care (01) ==
LOC: MW.ED 10:01
DX: U07.1 COVID-19 (principal)
CPT/HCPCS: 0240U; 99283

== ENCOUNTER 2021-04-10 13:50 | Emergency (ER) | payer MEDICAID ==
[2021-04-10] MEDS ORDERED: Sodium Chloride 0.9% 1,000 ML IV ONE (16:06)
[2021-04-10] MEDS ORDERED: Famotidine 20 MG/2 ML SDV IVPUSH ONE (16:06)
[2021-04-10] MEDS ORDERED: Promethazine 25 MG/ML SDV IM ONE (16:07)
--- NOTE | 2021-04-10 16:08 | EDM.PDOC ---
ED HPI GENERAL MEDICAL PROBLEM - General Chief Complaint: Respiratory Problem Stated Complaint: COVID POSITIVE, CAN'T KEEP ANYTHING DOWN Time Seen by Provider: 04/10/21 15:58 Source of Information: Reports: Patient History Limitations: Reports: No Limitations - History of Present Illness INITIAL COMMENTS - FREE TEXT/NARRATIVE: 25-year-old female presents for nausea and vomiting in the setting of known COVID-19 infection. Patient was seen in the emergency department a few days ago for concern for COVID-19. She tested positive. She had normal vital signs so she was sent home with a prescription for Motrin and Zofran for symptomatic relief. She did get the Regeneron infusion. She notes that she has been feeling better regarding her fevers, body aches, shortness of breath but she has had difficulty keeping anything down. She has been trying to just stick with liquids and does note that she was able to tolerate liquid water this afternoon without vomiting but any foods make her sick to her stomach. She notes that the Zofran does not seem to help very much but she did have a couple old Phenergan pills which helped more with her nausea. 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: Musculoskeletal History: Reports: None Neurological History: Reports: Seizure Other Neuro History: patient in status epilepticus.states hasn't had a seizure in 10 months, not taking any oral medications for seizures, states she smoked marijuana to contol seizures prior to Psychiatric History: Reports: None Endocrine/Metabolic History: Reports: Diabetes, Type I Insulin Pump Model and Housing Specialist: None Hematologic History: Reports: None Immunologic History: Reports: None Oncologic (Cancer) History: Reports: Cervix Other Oncologic History: stage 2 cervical ca approx 2 y ago, 'fine now' Dermatologic History: Reports: None - Infectious Disease History Infectious Disease History: Reports: None - Past Surgical History Head Surgeries/Procedures: Reports: None HEENT Surgical History: Reports: None Cardiovascular Surgical History: Reports: None Respiratory Surgical History: Reports: None GI Surgical History: Reports: None Female Surgical History: Reports: None Endocrine Surgical History: Reports: None Neurological Surgical History: Reports: None Musculoskeletal Surgical History: Reports: None Dermatological Surgical History: Reports: None Social & Family History - Family History Family Medical History: No Pertinent Family History Endocrine/Metabolic: Reports: Diabetes, Type I Oncologic: Reports: Other (See Below) Other Oncologic Family History: Cancer - Tobacco Use Tobacco Use Status *Q: Never Tobacco User Second Hand Smoke Exposure: No - Caffeine Use Caffeine Use: Reports: None - Recreational Drug Use Recreational Drug Use: Yes Recreational Drug Type: Reports: Marijuana/Hashish Recreational Drug Use Frequency: Socially ED ROS GENERAL - Review of Systems Review Of Systems: Comprehensive ROS is negative, except as noted in HPI. ED EXAM, GENERAL - Physical Exam Exam: See Below Exam Limited By: No Limitations General Appearance: Alert, WD/WN, No Apparent Distress Ears: Hearing Grossly Normal Throat/Mouth: Normal Voice, No Airway Compromise Head: Atraumatic, Normocephalic Respiratory/Chest: No Respiratory Distress, Lungs Clear, Normal Breath Sounds, No Accessory Muscle Use GI/Abdominal: Soft, Non-Tender Extremities: Normal Inspection Neurological: Alert, Normal Cognition, Normal Gait Psychiatric: Normal Affect, Normal Mood Skin Exam: Warm, Dry, Intact, Normal Color Course - Vital Signs Last Recorded V/S: Last Vital Signs Temp 97.3 F 04/10/21 15:10 Pulse 74 04/10/21 15:10 Resp 18 04/10/21 15:10 BP 116/80 04/10/21 15:10 Pulse Ox 97 04/10/21 15:10 - Orders/Labs/Meds Orders: Active Orders 24 hr Category Date Time Status Sodium Chloride 0.9% [Normal Saline] 1,000 ml Med 04/10/21 16:06 Active IV .Bolus Saline Lock Insert [OM.PC] Stat Oth 04/10/21 16:06 Ordered Medication Orders Sodium Chloride (Normal Saline) 1,000 mls @ 999 mls/hr IV .Bolus ONE Stop: 04/10/21 17:06 Last Admin: 04/10/21 16:35 Dose: 999 mls/hr Documented by: JERSON Labs: Laboratory Tests 04/10/21 04/10/21 Range/Units 16:35 16:35 WBC 8.11 (4.0-11.0) K/uL RBC 5.17 (4.30-5.90) M/uL Hgb 16.0 (12.0-16.0) g/dL Hct 45.8 (36.0-46.0) % MCV 88.6 (80.0-98.0) fL MCH 30.9 (27.0-32.0) pg MCHC 34.9 (31.0-37.0) g/dL RDW Std Deviation 42.2 (28.0-62.0) fl RDW Coeff of Sudheer 13 (11.0-15.0) % Plt Count 199 (150-400) K/uL MPV 10.60 (7.40-12.00) fL Neut % (Auto) 62.8 (48.0-80.0) % Lymph % (Auto) 30.1 (16.0-40.0) % Camp % (Auto) 6.9 (0.0-15.0) % Eos % (Auto) 0.1 (0.0-7.0) % Baso % (Auto) 0.1 (0.0-1.5) % Neut # (Auto) 5.1 (1.4-5.7) K/uL Lymph # (Auto) 2.4 (0.6-2.4) K/uL Camp # (Auto) 0.6 (0.0-0.8) K/uL Eos # (Auto) 0.0 (0.0-0.7) K/uL Baso # (Auto) 0.0 (0.0-0.1) K/uL Nucleated RBC % 0.0 /100WBC Nucleated RBCs # 0 K/uL Sodium 142 (136-145) mmol/L Potassium 3.5 (3.5-5.1) mmol/L Chloride 102 (98-107) mmol/L Carbon Dioxide 30.3 (21.0-32.0) mmol/L BUN 15 (7.0-18.0) mg/dL Creatinine 0.6 (0.6-1.0) mg/dL Est Cr Clr Drug Dosing 101.16 mL/min Estimated GFR (MDRD) > 60.0 ml/min Glucose 90 (74-106) mg/dL Calcium 9.2 (8.5-10.1) mg/dL Total Bilirubin 0.8 (0.2-1.0) mg/dL AST 24 (15-37) IU/L ALT 36 (14-63) IU/L Alkaline Phosphatase 70 (46-116) U/L Total Protein 9.0 H (6.4-8.2) g/dL Albumin 4.3 (3.4-5.0) g/dL Globulin 4.7 H (2.6-4.0) g/dL Albumin/Globulin Ratio 0.9 (0.9-1.6) Meds: Medications Generic Name Dose Route Start Last Admin Trade Name Freq PRN Reason Stop Dose Admin Sodium Chloride 1,000 mls @ 999 mls/hr 04/10/21 16:06 04/10/21 16:35 Normal Saline IV 04/10/21 17:06 999 mls/hr .Bolus ONE Administration Discontinued Medications Generic Name Dose Route Start Last Admin Trade Name Freq PRN Reason Stop Dose Admin Famotidine 20 mg 04/10/21 16:06 04/10/21 16:35 Famotidine 20 Mg/2 Ml Sdv IVPUSH 04/10/21 16:07 20 mg ONETIME ONE Administration Promethazine HCl 25 mg 04/10/21 16:07 04/10/21 16:35 Promethazine 25 Mg/Ml Sdv IM 04/10/21 16:08 25 mg ONETIME ONE Administration - Re-Assessments/Exams Free Text/Narrative Re-Assessment/Exam: 04/10/21 17:06 Patient's labs are unremarkable. She is feeling much better after Phenergan. Will discharge with a short prescription for Phenergan. Return precautions were discussed at length. Departure - Departure Time of Disposition: 17:06 Disposition: Home, Self-Care 01 Condition: Good Clinical Impression: Vomiting Qualifiers: Vomiting type: unspecified Vomiting Intractability: non-intractable Nausea presence: with nausea Qualified Code(s): R11.2 - Nausea with vomiting, unspecified - Discharge Information Instructions: Vomiting, Adult Referrals: PCP,None [Primary Care Provider] - Forms: ED Department Discharge Additional Instructions: I sent a prescription for Phenergan to [facility]. Please come back to the emergency department if you are unable to keep anything down. The following information is given to patients seen in the emergency department who are being discharged to home. This information is to outline your options for follow-up care. We provide all patients seen in our emergency department with a follow-up referral. The need for follow-up, as well as the timing and circumstances, are variable depending upon the specifics of your emergency department visit. If you don't have a primary care physician on staff, we will provide you with a referral. We always advise you to contact your personal physician following an emergency department visit to inform them of the circumstance of the visit and for follow-up with them and/or the need for any referrals to a consulting specialist. The emergency department will also refer you to a specialist when appropriate. This referral assures that you have the opportunity for follow-up care with a specialist. All of these measure are taken in an effort to provide you with optimal care, which includes your follow-up. Under all circumstances we always encourage you to contact your private physician who remains a resource for coordinating your care. When calling for follow-up care, please make the office aware that this follow-up is from your recent emergency room visit. If for any reason you are refused follow-up, please contact the [facility] Emergency Department at and asked to speak to the emergency department charge nurse. Please follow up with your primary care physician. If you do not have a primary care physician, see below: [facility] [address] [place] [address] [id number] [address] [address] [facility] [address] [place] [id number] Sepsis Event Note (ED) - Evaluation Sepsis Screening Result: No Definite Risk - Focused Exam Vital Signs: Vital Signs Temp Pulse Resp BP Pulse Ox 04/10/21 15:10 97.3 F 74 18 116/80 97 - My Orders Last 24 Hours: My Active Orders 04/10/21 16:06 Sodium Chloride 0.9% [Normal Saline] 1,000 ml IV .Bolus Saline Lock Insert [OM.PC] Stat - Assessment/Plan Last 24 Hours: My Active Orders 04/10/21 16:06 Sodium Chloride 0.9% [Normal Saline] 1,000 ml IV .Bolus Saline Lock Insert [OM.PC] Stat
[2021-04-10 17:01] LABS: BLOOD UREA NITROGEN,BUN 15 mg/dL (7.0-18.0); CARBON DIOXIDE,CO2 30.3 mmol/L (21.0-32.0); CHLORIDE,CL 102 mmol/L (98-107); GLUCOSE RANDOM 90 mg/dL (74-106); POTASSIUM,K 3.5 mmol/L (3.5-5.1); SODIUM,NA 142 mmol/L (136-145)
== END 2021-04-10 17:27 | disposition home or self-care (01) ==
LOC: MW.ED 13:50
DX: R11.2 Nausea with vomiting, unspecified (principal); E10.9 Type 1 diabetes mellitus without complications; Z86.16 Personal history of COVID-19
CPT/HCPCS: 36415; 80053; 85025; 96372; 96374; 99284; J2550; J3490; J7030